=== PATIENT | female | born 1935 | race American Indian/Alaskan Native ===

== ENCOUNTER 2019-07-25 11:02 | Emergency (ER) | payer OTHER ==
[2019-07-25 11:48] VITALS: TEMP 98.5; BMI 27.3
[2019-07-25] MEDS ORDERED: ACETAMINOPHEN 325 MG TABLET (FP) PO ONE (12:26)
--- NOTE | 2019-07-25 12:28 | PDOC ---
Documentation entered by Mark Coello SCRIBE, acting as scribe for Raven Rosas MD. Raven Rosas MD: This documentation has been prepared by the Mode gonsalez Daniel, SCRIBE, under my direction and personally reviewed by me in its entirety. I confirm that the documentation accurately reflects all work, treatment, procedures, and medical decision making performed by me. History of Present Illness - General Chief Complaint: Injury Stated Complaint: FALL Time Seen by Provider: 07/25/19 11:15 History Source: Patient Exam Limitations: No Limitations - History of Present Illness Initial Comments: 07/25/19 11:41 The patient is an 84 year old female with a past medical history of HTN, HLD, RA , OA, and asthma, prior pneumonias, last in 2017, here today from [facility] for evaluation s/p mechanical fall. The patient reports that she fell backwards from standing while trying to get dressed and states that she lost her balance. She notes hitting her head and upper back after the fall and currently notes mid back pain and occiput. She states that her back pain is worse with deep breaths. Patient also notes greater than a month of dry cough. She states that she has chronic muscle weakness, arthralgia, myalgia, orthopnea, shortness of breath, and constipation and states that these are unchanged. she states she is on chronic abx, Azithromycin 250 mg daily per her previous doctor in [place] for the pneumonia Patient denies headache, lightheadedness. Denies fever, chills. Denies chest pain. Denies nausea, vomiting, diarrhea, abdominal pain. no bowel or bladder problems. no syncope. no weakness or paresthesias. no prodromal sx. Allergies: pollen extracts Surgical history: hysterectomy, cholecystectomy, right shoulder replacement 07/25/19 12:27 07/25/19 15:25 Past History - Past Medical History Allergies/Adverse Reactions: Allergies Allergy/AdvReac Type Severity Reaction Status Date / Time pollen extracts Allergy Unknown Verified 07/25/19 11:28 Home Medications: Ambulatory Orders Albuterol Sulfate Inhaler - [Ventolin Hfa Inhaler -] 1 - 2 inh PO QID PRN Atorvastatin Ca [Lipitor] 20 mg PO HS 07/25/19 Fluticasone Propion/Salmeterol [Wixela 250-50 Inhub] 1 each IH BID 07/25/19 Folic Acid 2 mg PO DAILY 07/25/19 Losartan Potassium 50 mg PO DAILY 07/25/19 Methotrexate Sodium [Methotrexate] 12.5 mg PO WEEKLY 07/25/19 Naproxen 500 mg PO PRN PRN 07/25/19 [place]-3 Fatty Acids [[place]-3] 1,000 mg PO DAILY 07/25/19 Review of Systems - Review of Systems Able to Perform ROS?: Yes Comments:: 07/25/19 11:41 Constitutional: no fevers or chills. No weakness HEENT: +back of head pain. no dizziness. No congestion. No visual/hearing disturbances. CVS: no cp or syncope. Resp: no sob. +chronic cough. Gastrointestinal: no abdominal pain, nausea, vomiting, diarrhea. Genitourinary: no urinary sx, hematuria. MUSCULOSKELETAL: +mid back pain. No neck. SKIN: no redness or skin changes, no discharge, no rash. No wounds. Hematologic: no easy bruising/bleeding. NEUROLOGIC: +headache, no dizziness, LOC or altered mental status. No weakness, numbness or tingling. Psych: no anxiety or depression Allergic/Immunologic: pollen allergies All other systems reviewed and negative, or as documented in HPI. 07/25/19 12:29 *Physical Exam - Vital Signs Last Vital Signs Temp Pulse Resp BP Pulse Ox 98.5 F 89 18 177/71 H 98 07/25/19 11:20 07/25/19 11:20 07/25/19 11:20 07/25/19 11:20 07/25/19 11:20 - Physical Exam Comments: 07/25/19 11:42 General: +anxious appearing. GCS 15 well appearing HEENT: NCAT, PERRL, EOMI. Airway intact. No battles sign or raccoon eyes. No e/ o ocular. Dentition intact. No e/o septal hematoma, nasal bridge stable. Neck: neck supple, no midline C spine tenderness or deformity, ROM intact. No anterior mass or crepitus, trachea midline. Resp: Lungs clear bilaterally Chest: no clavicle or chest wall tenderness or crepitus CVS: RRR, 2+ pulses throughout. Abdomen: +protubertant abdomen. Abdomen soft, nontender. Back: Back with mid thoracic TTP, no midline spinal tenderness along cervical/ lumbar spine, FROM, no stepoffs. MSK: 2+pitting edema of the lower extremities to the sock line. Pelvis stable, Extremities symmetric, no focal areas of tenderness or deformities, proximal and distally; no pain on axial loading. FROM in all extrem. Neuro: Alert, oriented appropriately. CN II-XII grossly symmetric and intact. no focal neuro deficits. Sensation and strength intact throughout. Gait normal/ stable. Skin: intact, normal color and well perfused. No seatbelt signs at neck, chest or abdomen. 07/25/19 12:29 ED Treatment Course - RADIOLOGY Radiology Studies Ordered: Category Date Time Status CERVICAL SPINE CT W/O CONTR [CT] Stat CT Scan 07/25/19 12:[address] WITHOUT CONTRAST [CT] Stat CT Scan 07/25/19 12:24 Ordered CHEST PA & LAT [RAD] Stat Radiology 07/25/19 12:26 Ordered SPINE-THORACIC [RAD] Stat Radiology 07/25/19 12:26 Ordered Medical Decision Making - Medical Decision Making 07/25/19 12:30 Vital Signs Temp Pulse Resp BP Pulse Ox 98.5 F 89 18 177/71 H 98 07/25/19 11:20 07/25/19 11:20 07/25/19 11:20 07/25/19 11:20 07/25/19 11:20 VS reviewed, wnl ddx: ICH, SDH/ EDH, C spine injury/strain, extremity sprain/fracture, pelvis fracture. MSK contusion, msk spasms. Rib fractures, PTX, pneumonia. Clinically doubt Intra abdominal and thoracic injuries/bleed Xray thoracic spine normal joint space alignment, no acute fx or dislocation. no compression fx. CXR clear, no e/o pna CT head neg for acute bleed/injuries. c spine degenerative changes, no fx/ subluxation given analgesia here. fall prevention safety and prevention reviewed. avoid triggers. Pt to be discharged in stable condition. Patient made aware of clinical impression, treatment recommendations and disposition plan, return precautions discussed (including but not limited to new or persistent/worsening symptoms, pain, fevers, or signs of infection, chest pain, respiratory distress, inability to tolerate oral intake, dehydration, syncope, or neurologic changes) . Follow up with PMD or [facility] physician as recommended, follow up information provided, take medications as instructed for duration of time. continue with supportive care, avoid triggers and precipitants. All questions answered to patient's satisfaction and expressed understanding and comfort with this. At the time of discharge, the patient is alert, clinically improved, tolerating po and verbalizes understanding of instructions, satisfied with the care received and felt comfortable with the plan. Patient does not suffer from an acute life- threatening medical condition at this time and is safe for outpatient follow- up. 07/25/19 12:32 07/25/19 15:22 07/25/19 15:25 Discharge - Discharge Information Problems reviewed: Yes Clinical Impression/Diagnosis: Fall Closed head injury Qualifiers: Encounter type: initial encounter Qualified Code(s): S09.90XA - Unspecified injury of head, initial encounter Back pain Qualifiers: Back pain location: thoracic back pain Chronicity: unspecified Back pain laterality: unspecified Qualified Code(s): M54.6 - Pain in thoracic spine Disposition: CUSTODIAL FACILITY - Admission No - Follow up/Referral Referrals: Jesusita Martinez [Non Staff, Medical] - Maryjane Quiñones MD [Staff Physician] - - Patient Discharge Instructions Patient Printed Discharge Instructions: How to Prevent Falls, DI for Closed Head Injury, DI for Thoracic Back Pain Additional Instructions: Follow up with your primary care doctor within 48-72 hours. Rest. Take Acetaminophen (Tylenol) every 4-6 hours, as needed, for pain. Often individuals develop a headache associated with nausea in the days/hours after a head injury. This is called a concussion and does not warrant a return to the ED UNLESS: you develop significant worsening of pain, profuse vomiting, dizziness, changes in vision, difficulty walking/speaking, weakness or numbness to your extremities. FALL PREVENTION AT HOME WHAT YOU NEED TO KNOW There are many different factors that can increase your risk of falls. Falls can happen any time, but the majority of them occur in the home. Fall prevention includes ways to make your home and other areas safer. It also includes ways you can move more carefully to prevent a fall. Health conditions that cause changes in your blood pressure, vision, or muscle strength and coordination may increase your risk for falls. Medicines, including anesthesia, may increase your risk for falls if they make you dizzy, weak, or sleepy. FALL PREVENTION TIPS Stand or sit up slowly. This may help you keep your balance and prevent falls. Do not walk and talk at the same time. Concentrate on the task of walking and continue the conversation after you've reached a safe place. Wear shoes that fit well and have soles that form building supervisor. Wear shoes both inside and outside. Use slippers with good form building supervisor. Avoid shoes with high heels. Use assistive devices as directed. Your healthcare provider may suggest that you use a cane or walker to help you keep you balance. Be sure you have adequate lighting throughout your house. Keep paths clear. Remove books, shoes and other objects from walkways and stairs. Keep cords for telephones and lamps out of the way so you dont need to walk over them. Remove small rugs or secure them with double-sided tape. This will prevent you from tripping. Use a nightlight when getting out of bed at night. Stay active to maintain overall strength and endurance. Know your limitations. If there is a task you can not complete with ease, do not risk a fall by trying to complete it. Call 911 or have someone else call if: You have fallen and are unconscious You have fallen and cannot move part of your body Contact your healthcare provider if: You have fallen and have pain or a headache You have questions or concerns about your condition or care. - Post Discharge Activity
[2019-07-25] MEDS ORDERED: ACETAMINOPHEN 325 MG TABLET (FP) ONE (12:40)
[2019-07-25 15:40] VITALS: BP 154/66; PULSE 79
[2019-07-25] MEDS ORDERED: IBUPROFEN 600 MG TABLET (FP) PO ONE ×2 (15:44→15:52)
== END 2019-07-25 18:11 ==
LOC: JER 11:02
DX: S09.8XXA Other specified injuries of head, initial encounter (principal); S29.8XXA Other specified injuries of thorax, initial encounter; M54.6 Pain in thoracic spine; W18.39XA Other fall on same level, initial encounter; Y93.89 Activity, other specified; Y92.122 Bedroom in nursing home as the place of occurrence of the external cause; Y99.8 Other external cause status; I10 Essential (primary) hypertension; E78.00 Pure hypercholesterolemia, unspecified; M19.90 Unspecified osteoarthritis, unspecified site; M06.9 Rheumatoid arthritis, unspecified; J45.909 Unspecified asthma, uncomplicated; Z87.01 Personal history of pneumonia (recurrent); Z79.2 Long term (current) use of antibiotics; Z96.611 Presence of right artificial shoulder joint; Z90.49 Acquired absence of other specified parts of digestive tract; Z90.710 Acquired absence of both cervix and uterus; Z91.048 Other nonmedicinal substance allergy status
CPT/HCPCS: 70450-TC; 71046-TC-FY; 72070-TC-FY; 72125-TC; 99281-25

== ENCOUNTER 2019-08-17 00:15 | Emergency (ER) | payer OTHER, MEDICARE ==
[2019-08-17 00:44] VITALS: BP 160/71; PULSE 87; TEMP 98.5; BMI 30.2
--- NOTE | 2019-08-17 02:33 | PDOC ---
History of Present Illness - General Chief Complaint: Injury Stated Complaint: FALL Time Seen by Provider: 08/17/19 02:33 History Source: Patient, Friend Exam Limitations: No Limitations - History of Present Illness Initial Comments: 84 year old female with PMH HTN, HLD, RA, OA, and asthma, prior pneumonias, last in 2017 presented to ED for right shoulder and right elbow pain s/p fall today. Pt reported at [facility] where she resides her health aid was helping her get to the bathroom, but "she did not do a good job because I fell forward onto my right arm". She denied head injury, LOC, vomiting, neck pain, back pain, abdominal pain, chest pain. She reported she always feels short of breath and today is not increased. ROS General: denied fever, chills, generalized weakness. HEENT: denied sore throat, rhinorrhea, ear pain. Cardiovascular: denied chest pain, palpitations, syncope, diaphoresis. Respiratory: denied shortness of breath, cough, sputum production, hemoptysis. Gastrointestinal: denied abdominal pain, nausea, vomiting, diarrhea, constipation, blood in stool. Genitourinary: denied dysuria, increased urinary frequency, hematuria, urinary incontinence, flank pain. Back: denied back pain. Musculoskeletal: admitted to elbow pain, shoulder pain. Neurological: denied headache, dizziness, numbness, tingling, weakness. Integumentary: denied rash, laceration, abrasion. Hematologic/Lymphatic: denied bruising or bleeding. PE Constitutional: Well-nourished, Well-developed, appearing stated age. Airway: intact Breathing: bilateral breath sounds Circulation: 2+ carotid pulse B/L HEENT: head is normocephalic, atraumatic. No facial bones tenderness to palpation. No cheng sign. No raccoon eyes. EOMI. PERRLA. Neck: supple. Full ROM. no midline c-spine tenderness to palpation. No step offs. Cardiovascular: regular heart rhythm. no murmurs. no pericardial friction rub. Chest wall: No tenderness to palpation of anterior chest wall. No deformity to anterior chest wall. Respiratory: coarse breath sounds at right base, otherwise clear to auscultation. left lung clear to auscultation. speaking in full sentences. no labored breathing. Gastrointestinal: soft, nontender. normal bowel sounds. no rebound, guarding, masses. No ecchymoses. Back: no midline T-spine or L-spine tenderness to palpation. No step offs. Right upper extremity: full ROM right elbow without pain. no tenderness to palpation of right elbow. no tenderness to right shoulder. Pelvis: lower extremities equal in length without external rotation. No hip tenderness to palpation. Extremities: peripheral pulses intact. no lower extremity edema. Neurological: CN 2-12 grossly intact. moves all four extremities. Psych: awake, alert, oriented x3. follows commands. answers questions appropriately. Past History - Past Medical History Allergies/Adverse Reactions: Allergies Allergy/AdvReac Type Severity Reaction Status Date / Time pollen extracts Allergy Unknown Verified 07/25/19 11:28 Home Medications: Ambulatory Orders Albuterol Sulfate Inhaler - [Ventolin Hfa Inhaler -] 1 - 2 inh PO QID PRN Atorvastatin Ca [Lipitor] 20 mg PO HS 07/25/19 Fluticasone Propion/Salmeterol [Wixela 250-50 Inhub] 1 each IH BID 07/25/19 Folic Acid 2 mg PO DAILY 07/25/19 Losartan Potassium 50 mg PO DAILY 07/25/19 Methotrexate Sodium [Methotrexate] 12.5 mg PO WEEKLY 07/25/19 Naproxen 500 mg PO PRN PRN 07/25/19 [place]-3 Fatty Acids [[place]-3] 1,000 mg PO DAILY 07/25/19 Azithromycin [Zithromax -] 250 mg PO DAILY 08/17/19 Budesonide [Pulmicort 0.25 mg -] 1 neb PO BID 08/17/19 Cyclosporine [Restasis] 1 each OP BID 08/17/19 Fluticasone Propion/Salmeterol [Wixela 250-50 Inhub] 1 each IH BID 08/17/19 Hydrochlorothiazide [Hctz -] 25 mg PO DAILY 08/17/19 Nitroglycerin [Nitrostat] 0.4 mg SL [id number] PRN 08/17/19 Ubidecarenone [Coenzyme Q10] 100 mg PO BID 08/17/19 *Physical Exam - Vital Signs Last Vital Signs Temp Pulse Resp BP Pulse Ox 98.5 F 87 20 160/71 98 08/17/19 00:35 08/17/19 00:35 08/17/19 00:35 08/17/19 00:35 08/17/19 00:35 Medical Decision Making - Medical Decision Making 84 year old female with above PMH presented to ED for right shoulder and right elbow pain s/p fall today. Initial Vital Signs Temp Pulse Resp BP Pulse Ox 98.5 F 87 20 160/71 98 08/17/19 00:35 08/17/19 00:35 08/17/19 00:35 08/17/19 00:35 08/17/19 00:35 Afebrile. No tachycardia. No tachypnea. Hypertensive. No hypoxia on room air. Labs ordered: none Imaging ordered: CXR, pelvis XR, right elbow XR, right humerus XR, right shoulder XR, right forearm XR Medications ordered: none -Pt declined pain medication 08/17/19 05:15 X[address] Espino view show no acute fracture/dislocation. -Pending official reports 08/17/19 05:52 CT head report: Referring Physician: JAMES LUNA Comments: Jay Segundo MD wrote on Aug 17, 2019 at 05:42 AM: Referring Physician: JAMES LUNA Patient Name: ABELARDO SHETH THIS IS A PRELIMINARY REPORT FROM [facility] DATE OF SERVICE: 2019-08-17 05:20:36 IMAGES: [id number] EXAM: CT HEAD WITHOUT CONTRAST HISTORY: 84-year-old female, fall from standing COMPARISON: No available comparison exams. TECHNIQUE: Axial non-contrast images of the head obtained from the skull base to the vertex. Radiation Dose Reduction: This CT exam was performed using one or more of the following dose reduction techniques: automated exposure control, adjustment of the mA and/or kV according to patient size, use of iterative reconstruction technique. Radiation Dose: Based on a 16 cm phantom, the estimated radiation dose CTDIvol mGy for each series in this exam is 23.9. The estimated cumulative dose (DLP mGy-cm) is 557.0. FINDINGS: Parenchyma: No acute intracranial hemorrhage or mass effect. No hypodensity. Extra-axial collection: No extra-axial fluid collection or hemorrhage. Ventricles and cisterns: Normal and symmetric in size and shape. No SAH. Paranasal sinuses: Visualized portions are unremarkable. Mastoid air cells: Unremarkable. Orbits: Visualized portions are unremarkable. Calvarium: No acute fracture. IMPRESSION: No evidence of acute intracranial abnormality. 08/17/19 06:00 CT cervical spine report: Referring Physician: JAMES LUNA Comments: Jay Segundo MD wrote on Aug 17, 2019 at 05:56 AM: Referring Physician: JAMES LUNA Patient Name: ABELARDO SHETH THIS IS A PRELIMINARY REPORT FROM [facility] DATE OF SERVICE: 2019-08-17 05:17:16 IMAGES: [id number] EXAM: CT Cervical Spine without IV contrast HISTORY: 84-year-old female, fall from standing COMPARISON: No comparison exam is available. TECHNIQUE: Axial images obtained through the cervical spine. Sagittal and coronal reformatting was performed. Radiation Dose Reduction: This CT exam was performed using one or more of the following dose reduction techniques: automated exposure control, adjustment of the mA and/or kV according to patient size, use of iterative reconstruction technique. series in this exam is 6.6. The estimated cumulative dose (DLP mGy-cm) is 197.2. FINDINGS: Cervical Spine: Skull base is intact. No vertebral body fracture seen. Multilevel uncovertebral joint and facet hypertrophy which likely causes severe osseous neural foraminal stenosis at multiple levels. Alignment: 2 mm anterolisthesis of C4 on C5 and C5 on C6. Prevertebral soft tissues: Normal contour and thickness. Lung apices: Visualized portions clear. Thyroid: Asymmetrically enlarged right thyroid lobe possibly representing a 3 cm thyroid nodule. Vasculature: Limited evaluation without IV contrast. Soft tissues: Unremarkable. Lymphadenopathy: None. IMPRESSION No acute fracture. Asymmetrically enlarged right thyroid lobe possibly representing a 3 cm thyroid nodule. Recommend further characterization with ultrasound. One or more of the following dose reduction techniques were used: automated exposure control, adjustment of the mA and/or kV according to patient size, use of iterative reconstructive technique. THIS DOCUMENT HAS BEEN ELECTRONICALLY SIGNED Jay Segundo MD 08/17/2019 05:55 EST MAmbrosioD. Please call [facility] [phone]) with questions. Jay Segundo MD Results discussed with patient, friend and son at bedside. Pt is a elderly woman coming from an assisted living facility for a mechanical fall. X-ray imaging of right upper extremity showed no acute fracture or dislocation by my and Dr. Love' read. Pending official radiology reports to be done in the AM. Pt and family informed they will be called if there is a change from our interpretation. Pt and family informed of incidental thyroid nodule, they reported they are aware. Pt and son reported they are comfortable with pt returning back to [facility] facility and prompt PCP F/U. 08/17/19 11:34 Follow up: Official CXR report: Name: ABELARDO SHETH DEPARTMENT OF RADIOLOGY Phys: Raven Rosas MD : 1935 Age: 84 Sex: F [facility] Acct: [id number] Loc: [facility] [address] [place] [address] Exam Date: 07/25/19 Status: [facility] [place] [address] Unit Number: [id number] EXAM#: TYPE/EXAM: RESULT: [id number] RAD/CHEST PA LAT Evaluate for pneumonia. Chest. 3 views. Comparison study July 19, 2019. Left pacemaker with 2 intact leads. No evidence of vascular congestive changes pulmonary edema. Unchanged contour of the cardiomediastinal silhouette. No evidence of bulky hilar adenopathy. No evidence of a pulmonary infiltrates, atelectasis. No pneumothorax , or large pleural effusion is seen. Demineralized osseous structures. Status post total right shoulder replacement. Impression. No evidence of pneumonia, atelectasis, CHF. No pneumothorax, or large pleural effusion is seen. Reported By: Brody Campuzano MD 07/26/19 0918 Official Pelvis XR report: Name: ABELARDO SHETH DEPARTMENT OF RADIOLOGY Phys: Azalia Zabala RESIDENT : 1935 Age: 84 Sex: F [facility] Acct: [id number] Loc: [facility] [address] [place] [address] Exam Date: 08/17/19 Status: [facility] [place] [id number] Unit Number: [id number] ACCESSION # : [id number] EXAM#: TYPE/EXAM: RESULT: [id number] RAD/PELVIS Pelvis: Fall. Pain. A single view of the pelvis reveals excessive soft tissues, abdominal distention but no sign of a gross fracture or subluxation. Blastic or lytic changes are not seen. If symptoms persist, further imaging and orthopedic consultation may be of help. Reported By: Cristobal Alford MD 08/17/19 0751 Official R shoulder XR: Name: ABELARDO SHETH DEPARTMENT OF RADIOLOGY Phys: Azalia Zabala RESIDENT : 1935 Age: 84 Sex: F [facility] Acct: [id number] Loc: [facility] [address] [place] [address] Exam Date: 08/17/19 Status: [place] [id number] Unit Number: [id number] ACCESSION # : [id number] EXAM#: TYPE/EXAM: RESULT: [id number] RAD/SHOULDER-RIGHT Right shoulder: Pain. 2 views of the right shoulder reveal a right shoulder replacement and pacemaker wires. An acute process is not seen. There is no sign of loosening. There is no sign of a fracture. Correlation recommended. Reported By: Cristobal Alford MD 08/17/19 0747 Official R Humerus XR report: Name: ABELARDO SHETH DEPARTMENT OF RADIOLOGY Phys : Azalia Zabala RESIDENT : 1935 Age: 84 Sex: F [facility] Acct: [id number] Loc: [facility] [address] [place] [address] Exam Date: 08/17/19 Status: [place] [place] [address] Unit Number: [id number] ACCESSION # : [id number] EXAM#: TYPE/EXAM: RESULT: [id number] RAD/HUMERUS-RIGHT Right humerus: Fall. Pain. 2 views of the right humerus reveal a right shoulder replacement. There is no sign of an acute fracture and there is no sign of loosening or subluxation. If symptoms persist, further imaging and orthopedic consultation may be of help. Reported By: Cristobal Alford MD 08/17/19 0752 Official R elbow XR report: Name: ABELARDO SHETH DEPARTMENT OF RADIOLOGY Phys: Azalia Zabala RESIDENT : 1935 Age: 84 Sex: F [facility] Acct: [id number] Loc: [address] Exam Date: 08/17/19 Status: [place] [address] Unit Number: [id number] ACCESSION # : [id number] EXAM#: TYPE/EXAM: RESULT: [id number] RAD/ELBOW-RIGHT Right elbow: Pain. Fall. 3 views of the right elbow reveals no sign of a gross fracture or subluxation and no sign of blastic or lytic changes. There is loss of bone density with arthritic changes. Swelling, foreign body or soft tissue air is not seen. If symptoms persist, further imaging may be of help. Reported By: Cristobal Alford MD 08/17/19 0745 Official R forearm XR report: Name: ABELARDO SHETH DEPARTMENT OF RADIOLOGY Phys : Azalia Zabala RESIDENT : 1935 Age: 84 Sex: F [facility] Acct: [id number] Loc: [facility] [address] [facility] Exam Date: 08/17/19 Status: [facility] [place] [id number] Unit Number: [id number] ACCESSION # : [id number] EXAM#: TYPE/EXAM: RESULT: [id number] RAD/FOREARM- RIGHT Right forearm: Fall. Pain. 2 views of the right forearm have been submitted. There is no sign of an acute fracture or subluxation and no sign of blastic or lytic changes. There are some arthritic changes noted. Swelling, foreign body or soft tissue air is not seen. If symptoms persist, further imaging may be of help. Impression: No acute right forearm pathology. Reported By: Cristobal Alford MD 0755 Discharge - Discharge Information Problems reviewed: Yes Clinical Impression/Diagnosis: Shoulder pain, Elbow pain, Fall, Thyroid nodule Condition: Stable Disposition: LONGTERM FACILITY - Admission No - Follow up/Referral Referrals: Jesusita Martinez [Primary Care Provider] - - Patient Discharge Instructions Patient Printed Discharge Instructions: How to Prevent Falls, DI for Thyroid Nodule Additional Instructions: Follow up with your primary care doctor within 3 days regarding your Emergency Room visit. Your care is not complete until you follow up. Take Tylenol over the counter for pain, take as advised on label. Return to the Emergency Department for increasing pain, chest pain, shortness of breath, vomiting, dizziness, lightheadedness, passing out, or any other new, worsening or concerning symptoms. Your Cat-Scan of your head was normal. Your Cat-Scan of your neck showed no fracture, but an asymmetrically enlarged right thyroid lobe possibly representing a 3 cm thyroid nodule was noted. Please let your primary care doctor know about this, and set up for an ultrasound to be performed out patient. Your X-rays showed no acute fractures by the Emergency Room doctors read. A radiologist will be reading the X-rays in the morning and you will be called if there is anything found on the X-rays that was not seen overnight. CT reports: CT head report: Referring Physician: JAMES LUNA Comments: Jay Segundo MD wrote on Aug 17, 2019 at 05:42 AM: Referring Physician: JAMES LUNA Patient Name: ABELARDO SHETH THIS IS A PRELIMINARY REPORT FROM [facility] DATE OF SERVICE: 2019-08-17 05:20:36 IMAGES: 259 EXAM: CT HEAD WITHOUT CONTRAST HISTORY: 84-year-old female, fall from standing COMPARISON: No available comparison exams. TECHNIQUE: Axial non-contrast images of the head obtained from the skull base to the vertex. Radiation Dose Reduction: This CT exam was performed using one or more of the following dose reduction techniques: automated exposure control, adjustment of the mA and/or kV according to patient size, use of iterative reconstruction technique. Radiation Dose: Based on a 16 cm phantom, the estimated radiation dose CTDIvol mGy for each series in this exam is 23.9. The estimated cumulative dose (DLP mGy-cm) is 557.0. FINDINGS: Parenchyma: No acute intracranial hemorrhage or mass effect. No hypodensity. Extra-axial collection: No extra-axial fluid collection or hemorrhage. Ventricles and cisterns: Normal and symmetric in size and shape. No SAH. Paranasal sinuses: Visualized portions are unremarkable. Mastoid air cells: Unremarkable. Orbits: Visualized portions are unremarkable. Calvarium: No acute fracture. IMPRESSION: No evidence of acute intracranial abnormality. CT cervical spine report: Referring Physician: JAMES LUNA Comments: Jay Segundo MD wrote on Aug 17, 2019 at 05:56 AM: Referring Physician: JAMES LUNA Patient Name: ABELARDO SHETH THIS IS A PRELIMINARY REPORT FROM [facility] DATE OF SERVICE: 2019-08-17 05:17:16 IMAGES: 454 EXAM: CT Cervical Spine without IV contrast HISTORY: 84-year-old female, fall from standing COMPARISON: No comparison exam is available. TECHNIQUE: Axial images obtained through the cervical spine. Sagittal and coronal reformatting was performed. Radiation Dose Reduction: This CT exam was performed using one or more of the following dose reduction techniques: automated exposure control, adjustment of the mA and/or kV according to patient size, use of iterative reconstruction technique. series in this exam is 6.6. The estimated cumulative dose (DLP mGy-cm) is 197.2. FINDINGS: Cervical Spine: Skull base is intact. No vertebral body fracture seen. Multilevel uncovertebral joint and facet hypertrophy which likely causes severe osseous neural foraminal stenosis at multiple levels. Alignment: 2 mm anterolisthesis of C4 on C5 and C5 on C6. Prevertebral soft tissues: Normal contour and thickness. Lung apices: Visualized portions clear. Thyroid: Asymmetrically enlarged right thyroid lobe possibly representing a 3 cm thyroid nodule. Vasculature: Limited evaluation without IV contrast. Soft tissues: Unremarkable. Lymphadenopathy: None. IMPRESSION No acute fracture. Asymmetrically enlarged right thyroid lobe possibly representing a 3 cm thyroid nodule. Recommend further characterization with ultrasound. One or more of the following dose reduction techniques were used: automated exposure control, adjustment of the mA and/or kV according to patient size, use of iterative reconstructive technique. THIS DOCUMENT HAS BEEN ELECTRONICALLY SIGNED Jay Segundo MD 08/17/2019 05:55 GET Mitchell. Please call [facility] [phone]) with questions. Jay Segundo MD - Post Discharge Activity
--- NOTE | 2019-08-17 02:37 | PDOC ---
Attending Attestation - Resident Resident Name: Azalia Zabala - ED Attending Attestation I have performed the following: I have examined & evaluated the patient, The case was reviewed & discussed with the resident, I agree w/resident's findings & plan - HPI HPI: 08/17/19 04:59 see resident hpi - Physicial Exam PE: 08/17/19 04:59 agree with resident exam - Medical Decision Making 08/17/19 04:59 84-year-old female status post mechanical fall with right upper extremity pain Plan for CT scan of the head and cervical spine as well as x-rays of the right humerus shoulder and elbow Plan for DC pending imaging results
== END 2019-08-17 09:02 ==
LOC: JER 00:15
DX: M25.511 Pain in right shoulder (principal); M25.2 Flail joint; E04.1 Nontoxic single thyroid nodule; Z96.611 Presence of right artificial shoulder joint; W18.39XA Other fall on same level, initial encounter; Y93.01 Activity, walking, marching and hiking; Y92.092 Bedroom in other non-institutional residence as the place of occurrence of the external cause; Y99.8 Other external cause status; I10 Essential (primary) hypertension; E78.5 Hyperlipidemia, unspecified; M19.90 Unspecified osteoarthritis, unspecified site; M06.9 Rheumatoid arthritis, unspecified; J45.909 Unspecified asthma, uncomplicated; Z87.01 Personal history of pneumonia (recurrent); Z91.048 Other nonmedicinal substance allergy status
CPT/HCPCS: 70450-TC; 71045-TC-FY; 72125-TC; 72170-TC-FY; 73030-TC-RT-FY; 73060-TC-RT-FY; 73070-TC-RT-FY; 73090-TC-RT-FY; 99284-25

== ENCOUNTER 2019-09-06 01:20 | Emergency (ER) | payer OTHER, MEDICARE ==
[2019-09-06] MEDS ORDERED: ALBUTEROL SO4 0.083% IH SOL 2.5 MG/3 ML VIAL.NEB. NEB ONE ×2 (01:40→02:21)
[2019-09-06] MEDS ORDERED: ALBUTEROL SO4 2.5/IPRATROPIUM 0.5 INH SOL 3 ML VIAL.NEB. NEB ONE (02:02)
[2019-09-06] MEDS ORDERED: methylPREDNISolone NA SUCC 125 MG/2 ML VIAL IVPB ONE (02:02)
[2019-09-06 02:14] VITALS: TEMP 98.2; BMI 27.3
--- NOTE | 2019-09-06 02:14 | PDOC ---
History of Present Illness - General Chief Complaint: Respiratory Stated Complaint: DIFF BREATHING Time Seen by Provider: 09/06/19 01:51 History Source: Patient Exam Limitations: No Limitations - History of Present Illness Initial Comments: 84 year old female with PMH HTN, HLD, RA, pacemaker, OA, and asthma, prior pneumonias, last in 2017 presents to the emergency department 09/06/19 03:45 Past History - Past Medical History Allergies/Adverse Reactions: Allergies Allergy/AdvReac Type Severity Reaction Status Date / Time pollen extracts Allergy Unknown Verified 09/06/19 02:13 Home Medications: Ambulatory Orders Albuterol Sulfate Inhaler - [Ventolin Hfa Inhaler -] 1 - 2 inh PO QID PRN Atorvastatin Ca [Lipitor] 20 mg PO HS 07/25/19 Fluticasone Propion/Salmeterol [[place]ixela 250-50 Inhub] 1 each IH BID 07/25/19 Folic Acid 2 mg PO DAILY 07/25/19 Losartan Potassium 50 mg PO DAILY 07/25/19 Methotrexate Sodium [Methotrexate] 12.5 mg PO WEEKLY 07/25/19 Naproxen 500 mg PO PRN PRN 07/25/19 [place]-3 Fatty Acids [[place]-3] 1,000 mg PO DAILY 07/25/19 Budesonide [Pulmicort 0.25 mg -] 1 neb PO BID 08/17/19 Cyclosporine [Restasis] 1 each OP BID 08/17/19 Hydrochlorothiazide [Hctz -] 25 mg PO DAILY 08/17/19 Nitroglycerin [Nitrostat] 0.4 mg SL [id number] PRN 08/17/19 Ubidecarenone [Coenzyme Q10] 100 mg PO ASDIR 08/17/19 Acetaminophen 500 mg PO TID PRN 09/06/19 Albuterol 0.083% Nebulizer Deborah [Ventolin 0.083%] 1 neb NEB BID 09/06/19 Cholecalciferol (Vitamin D3) [Vitamin D3] 2,000 unit PO DAILY 09/06/19 Methylprednisolone [Medrol Dose Todd] 4 mg PO ASDIR #21 tablet 09/06/19 Polyethylene Glycol 3350 17 gm PO DAILY PRN 09/06/19 Asthma: Yes COPD: No HTN: Yes Hypercholesterolemia: Yes - Immunization History Td Vaccination: Yes TDAP Vaccination: Yes Immunization Up to Date: Yes - Psycho Social/Smoking Cessation Hx Smoking History: Never smoked Have you smoked in the past 12 months: No Information on smoking cessation initiated: No Hx Alcohol Use: No Drug/Substance Use Hx: No *Physical Exam - Vital Signs Last Vital Signs Temp Pulse Resp BP Pulse Ox 98.2 F 82 17 139/87 98 09/06/19 01:20 09/06/19 01:20 09/06/19 01:20 09/06/19 01:20 09/06/19 01:20 ED Treatment Course - LABORATORY CBC & Chemistry Diagram: 09/06/19 02:45 09/06/19 02:45 - RADIOLOGY Radiology Studies Ordered: Category Date Time Status CHEST X-RAY PORTABLE* [RAD] Stat Radiology 09/06/19 02:02 Ordered Discharge - Discharge Information Problems reviewed: Yes Clinical Impression/Diagnosis: Asthma Condition: Improved Disposition: [facility] - Admission No - Additional Discharge Information Prescriptions: Methylprednisolone [Medrol Dose Todd] 4 mg PO ASDIR #21 tablet - Follow up/Referral Referrals: Jesusita Martinez [Primary Care Provider] - Kanu Angel MD [Staff Physician] - Red Tanner MD [Staff Physician] - Reji Vitale MD, MD [Staff Physician] - Fidel Cardenas MD [Staff Physician] - - Patient Discharge Instructions Patient Printed Discharge Instructions: DI for Asthma -- Adult - Post Discharge Activity
[2019-09-06] MEDS ORDERED: methylPREDNISolone NA SUCC 125 MG/2 ML VIAL ONE (02:21)
[2019-09-06 02:56] LABS: BASO % 0.7 % (0-2.0); EOS % 0.1 % (0-4.5); HEMOGLOBIN 12.6 GM/dL (10.7-15.3); LYMPH % 11.3 % (8-40); MCH 26.8 pg (25.7-33.7); MCHC 33.2 g/dl (32.0-36.0); MEAN CELL VOLUME 80.9 fl (80-96); MONO % 13.1 % (3.8-10.2); NEUT % 74.8 % (42.8-82.8); PLATELET COUNT 254 K/MM3 (134-434); RDW 14.8 % (11.6-15.6); WHITE BLOOD COUNT 8.4 K/mm3 (4.0-10.0)
[2019-09-06 03:25] LABS: ALBUMIN 3.4 g/dl (3.4-5.0); BILIRUBIN,TOTAL 0.3 mg/dL (0.2-1); BLOOD UREA NITROGEN 16.1 mg/dL (7-18); CALCIUM 9.3 mg/dL (8.5-10.1); CREATININE 0.5 mg/dL (0.55-1.3); POTASSIUM 4.3 mmol/L (3.5-5.1); TOT PROT 6.6 g/dl (6.4-8.2)
--- NOTE | 2019-09-06 03:43 | PDOC ---
Attending Attestation - Resident Resident Name: TomMikel - ED Attending Attestation I have performed the following: I have examined & evaluated the patient, The case was reviewed & discussed with the resident, I agree w/resident's findings & plan, Exceptions are as noted - HPI HPI: 09/06/19 03:40 84 years old from assisted living facility presents to the emergency department with past medical history significant for hypertension hyperlipidemia rheumatoid arthritis osteoarthritis asthma pneumonias in the past patient has had a cough for greater than 2 months presents to the emergency department tonight with cough and some shortness of breath cough has been chronic persistent constant no exacerbating relieving factors tonight felt more short of breath and asked to come to the emergency department Upon arrival to the ED patient with normal O2 sat no respiratory distress - Physicial Exam PE: 09/06/19 03:41 Vitals: Triage Vital signs reviewed General Appearance: No acute distress, well nourished well developed, Head: Atraumatic, Cardiac: Regular rate and rhythym, no murmurs, no rubs, no gallops, Lungs: Coarse breath sounds at the right base Abdomen: Soft, non distended, normal bowel sounds, non tender to palpation Extremities: Full range of motion to all extremities, no cyanosis, clubbing, or edema Skin: Warm and dry, no rashes or lesions, no rash, no petechiae Psych: Normal mood, normal affect - Medical Decision Making 09/06/19 03:41 84 years old with chronic cough mild shortness of breath this evening we will check labs EKG Observe and reassess EKG demonstrates atrial sensed ventricular paced rhythm troponin chest x-ray DuoNeb steroids with occasional ventricular complexes Status post duo nebs and steroids patient feels much better chest x-ray demonstrates no acute pathology she has no fever no white count her influenza is negative Reevaluation 345 patient with chronic cough improved with steroids nebs will discharge home with Medrol Dosepak nebs as well as incentive spirometer and pulmonary follow-up. Influenza negative chest x-ray clear (interpreted by me) no fever no white count no infectious etiology identified as cause of patient's cough patient would benefit from pulmonary toilet. Patient's bedside aide educated Findings, the need for follow-up and strict return instructions discussed with patient.
[2019-09-06 07:01] VITALS: BP 144/64; PULSE 89
--- NOTE | 2019-09-06 15:34 | EKG ---
Test Reason : Blood Pressure : / mmHG Vent. Rate : 110 BPM Atrial Rate : 102 BPM P-R Int : 174 ms QRS Dur : 108 ms QT Int : 362 ms P-R-T Axes : 059 -27 097 degrees QTc Int : 489 ms Atrial-sensed ventricular-paced rhythm WITH OCCASIONAL supraventricular complexes ABNORMAL ECG NO PREVIOUS ECGS AVAILABLE Confirmed by JOSE MARQUEZ MD ([id number]) on 09/06/2019 3:33:45 PM Referred By: Confirmed By:JOSE MARQUEZ MD
== END 2019-09-06 06:58 ==
LOC: JER 01:20
PROC: 3E0F7GC Introduction of Other Therapeutic Substance into Respiratory Tract, Via Natural or Artificial Opening (ICD-10-PCS; principal; 2019-09-06)
PROC: 3E0333Z Introduction of Anti-inflammatory into Peripheral Vein, Percutaneous Approach (ICD-10-PCS; 2019-09-06)
DX: J45.909 Unspecified asthma, uncomplicated (principal); I10 Essential (primary) hypertension; E78.5 Hyperlipidemia, unspecified; M06.9 Rheumatoid arthritis, unspecified; M19.90 Unspecified osteoarthritis, unspecified site; Z87.01 Personal history of pneumonia (recurrent); Z95.0 Presence of cardiac pacemaker
CPT/HCPCS: 36415; 71045-TC-FY; 80053; 82550; 84484; 85025; 93005; 93010; 94640; 96374; 99283-25

== ENCOUNTER 2019-09-14 01:54 | Emergency (ER) | payer OTHER, MEDICARE ==
[2019-09-14 02:19] VITALS: BMI 28.5
--- NOTE | 2019-09-14 02:41 | PDOC ---
Attending Attestation - Resident Resident Name: Jackson Reyna - ED Attending Attestation I have performed the following: I have examined & evaluated the patient, The case was reviewed & discussed with the resident, I agree w/resident's findings & plan - HPI HPI: 09/14/19 04:38 see resident hpi - Physicial Exam PE: 09/14/19 04:38 agree with resident exam - Medical Decision Making 09/14/19 84-year-old female status post mechanical fall with no visible injury Due to patient's reported head trauma plan for CT scan of the head and cervical spine for precautionary reasons due to age Patient's aide is at the bedside and did witness the event stating there was no blunt trauma involved She is currently in a facility receiving rehab as well Plan for DC back to facility pending CT scan results
--- NOTE | 2019-09-14 02:49 | PDOC ---
History of Present Illness - General Chief Complaint: Injury Stated Complaint: FALL Time Seen by Provider: 09/14/19 02:28 History Source: Patient, Other (nursing coordinator) Exam Limitations: No Limitations - History of Present Illness Initial Comments: 09/14/19 02:52 84yF w PMHx rheumatoid arthritis, osteoarthritis, asthma, HTN, HLD, frequent falls presenting from [facility] w head and back pain s/p witnessed fall. 12pm opening bathroom door, legs felt weak, fell backwards on nursing coordinator, hit head on floor. Complaining of posterior head, neck, back pain. Not on blood thinners. Denies LOC, vision change, nausea/vomiting, chest pain, SOB. Has BLE weakness necessitating use of cane for last 2 months, has been working w PT. Past History - Past Medical History Allergies/Adverse Reactions: Allergies Allergy/AdvReac Type Severity Reaction Status Date / Time pollen extracts Allergy Unknown Verified 09/14/19 02:13 Home Medications: Ambulatory Orders Albuterol Sulfate Inhaler - [Ventolin Hfa Inhaler -] 1 - 2 inh PO QID PRN Atorvastatin Ca [Lipitor] 20 mg PO HS 07/25/19 Folic Acid 2 mg PO DAILY 07/25/19 Losartan Potassium 50 mg PO DAILY 07/25/19 Naproxen 500 mg PO PRN PRN 07/25/19 Downing-3 Fatty Acids [Downing-3] 1,000 mg PO DAILY 07/25/19 Budesonide [Pulmicort 0.25 mg -] 1 neb PO BID 08/17/19 Nitroglycerin [Nitrostat] 0.4 mg SL [id number] PRN 08/17/19 Ubidecarenone [Coenzyme Q10] 100 mg PO ASDIR 08/17/19 Acetaminophen 500 mg PO TID PRN 09/06/19 Albuterol 0.083% Nebulizer Deborah [Ventolin 0.083%] 1 neb NEB BID 09/06/19 Cholecalciferol (Vitamin D3) [Vitamin D3] 2,000 unit PO DAILY 09/06/19 Polyethylene Glycol 3350 17 gm PO DAILY PRN 09/06/19 Azithromycin [Zithromax -] 250 mg PO DAILY 09/14/19 Tobramycin/Dexamethasone [Tobradex Eye Drops] 1 drop OU TID 09/14/19 Asthma: Yes COPD: No HTN: Yes Hypercholesterolemia: Yes - Immunization History Td Vaccination: Yes TDAP Vaccination: Yes Immunization Up to Date: Yes - Psycho Social/Smoking Cessation Hx Smoking History: Never smoked Have you smoked in the past 12 months: No Hx Alcohol Use: No Drug/Substance Use Hx: No Review of Systems - Review of Systems Constitutional: No: Chills, Fever HEENTM: No: Eye Pain, Recent change in vision, Nose Pain, Throat Pain, Mouth Pain Respiratory: No: Cough, Shortness of Breath Cardiac (ROS): No: Chest Pain, Palpitations, Syncope ABD/GI: Yes: Abdominal Distended (mild). No: Constipated, Diarrhea, Nausea, Vomiting : No: Burning, Dysuria, Frequency Musculoskeletal: Yes: Back Pain, Neck Pain. No: Joint Stiffness Integumentary: No: Bruising, Erythema Neurological: Yes: Headache. No: Seizure, Tingling Psychiatric: No: Anxiety, Depression Endocrine: No: Excessive Sweating, Flushing, Intolerance to Cold, Intolerance to Heat Hematologic/Lymphatic: No: Anemia, Blood Clots *Physical Exam - Vital Signs Last Vital Signs Temp Pulse Resp BP Pulse Ox 97.6 F 97 H 16 136/65 98 09/14/19 02:00 09/14/19 02:00 09/14/19 02:00 09/14/19 02:00 09/14/19 02:00 - Physical Exam General Appearance: Yes: Nourished, Appropriately Dressed, Mild Distress HEENT: positive: EOMI, WHITNEY, Normal Voice, Hearing Grossly Normal. negative: Scleral Icterus (R), Scleral Icterus (L), Nasal Congestion, Rhinorrhea Neck: positive: Tender (mild), Supple. negative: Rigid, Decreased range of motion (full ROM), Rigidity Respiratory/Chest: positive: Wheezing (intermittent ). negative: Chest Tender, Respiratory Distress, Accessory Muscle Use, Labored Respiration, Crackles, Rales , Rhonchi, Stridor Cardiovascular: positive: Regular Rhythm, Regular Rate, S1, S2. negative: Murmur Gastrointestinal/Abdominal: positive: Normal Bowel Sounds, Flat (mild distension ), Soft. negative: Tender, Distended, Guarding, Mass Musculoskeletal: positive: Other (no midline vertebral deformity/step-off). negative: Vertebral Tenderness Extremity: positive: Swelling (BLE +1 pitting edema to knees) Integumentary: positive: Normal Color, Other (no abrasion/laceration). negative : Rash, Ecchymosis Neurologic: positive: scratch polisher II-XII NML intact, Fully Oriented, Alert, Normal Mood/ Affect, Normal Response, Responsive. negative: Motor Strength 5/5 (reduced BLE strength), Numbness, Sensory Deficit, Confused, Disoriented Medical Decision Making - Medical Decision Making 09/14/19 02:55 Head, c-spine CT tylenol --- 84yF w PMHx rheumatoid arthritis, osteoarthritis, asthma, HTN, HLD, frequent falls presenting from [facility] w head and back pain s/p witnessed mechanical fall. Neuro intact. Head, c-spine CT did not show acute fracture/bleed/dislocation. Given tylenol for pain. DC home. Discharge - Discharge Information Problems reviewed: Yes Clinical Impression/Diagnosis: Head injury due to trauma Qualifiers: Encounter type: initial encounter Qualified Code(s): S09.90XA - Unspecified injury of head, initial encounter Condition: Good Disposition: HOME - Admission No - Follow up/Referral Referrals: Jesusita Martinez [Primary Care Provider] - - Patient Discharge Instructions Patient Printed Discharge Instructions: How to Prevent Falls Additional Instructions: Darrell was seen for head and back pain after a fall. Her imaging did not show anything concerning. She was given medication for pain. She can take tylenol or ibuprofen if she continues to have pain. Come back to the ED if she loses consciousness, vision change, vomits, or has worsening pain. - Post Discharge Activity
[2019-09-14] MEDS ORDERED: ACETAMINOPHEN 500 MG TABLET (FP) PO ONE (02:52)
[2019-09-14] MEDS ORDERED: ACETAMINOPHEN 325 MG TABLET (FP) ONE (03:06)
[2019-09-14 05:42] VITALS: BP 129/72; PULSE 77; TEMP 98.2
== END 2019-09-14 06:21 | disposition home or self-care (01) ==
LOC: JER 01:54
DX: S09.90XA Unspecified injury of head, initial encounter (principal); W18.39XA Other fall on same level, initial encounter; Y93.89 Activity, other specified; Y92.099 Unspecified place in other non-institutional residence as the place of occurrence of the external cause; J45.909 Unspecified asthma, uncomplicated; I10 Essential (primary) hypertension; E78.00 Pure hypercholesterolemia, unspecified; J30.1 Allergic rhinitis due to pollen
CPT/HCPCS: 70450-TC; 72125-TC; 99283-25

== ENCOUNTER 2019-09-27 02:27 | Emergency (ER) | payer OTHER, MEDICARE ==
[2019-09-27 04:39] VITALS: BP 170/74; PULSE 83; TEMP 98; BMI 28.3
--- NOTE | 2019-09-27 04:53 | PDOC ---
History of Present Illness - General Chief Complaint: Shortness of Breath Stated Complaint: SOB Time Seen by Provider: 09/27/19 04:52 - History of Present Illness Initial Comments: 09/27/19 05:17 The patient is an 84 year old female with a history of HTN, HLD, Asthma who presents for evaluation of shortness of breath. The patient reports that she awoke this morning at 2am with severe difficulty breathing that has been persistent prompting her presentation to the ED for further evaluation. She reports that her symptoms have improved since presenting to the ED, but continues to experience SOB. She otherwise denies fevers, cills, SOB, chest pain, nausea, vomiting, abdominal pain, or changes with urination or bowel movements. Past History - Past Medical History Allergies/Adverse Reactions: Allergies Allergy/AdvReac Type Severity Reaction Status Date / Time pollen extracts Allergy Unknown Verified 09/27/19 04:41 leflunomide [From Arava] Allergy Verified 09/27/19 06:28 Home Medications: Ambulatory Orders Atorvastatin Ca [Lipitor] 20 mg PO HS 07/25/19 Folic Acid 2 mg PO DAILY 07/25/19 Losartan Potassium 50 mg PO DAILY 07/25/19 Naproxen 500 mg PO PRN PRN 07/25/19 [place]-3 Fatty Acids [[place]-3] 1,000 mg PO DAILY 07/25/19 Budesonide [Pulmicort 0.25 mg -] 0.5 neb PO BID 08/17/19 Nitroglycerin [Nitrostat] 0.4 mg SL [id number] PRN 08/17/19 Ubidecarenone [Coenzyme Q10] 100 mg PO ASDIR 08/17/19 Acetaminophen 500 mg PO TID PRN 09/06/19 Albuterol 0.083% Nebulizer Deborah [Ventolin 0.083%] 1 neb NEB BID 09/06/19 Cholecalciferol (Vitamin D3) [Vitamin D3] 2,000 unit PO DAILY 09/06/19 Polyethylene Glycol 3350 17 gm PO DAILY PRN 09/06/19 Asthma: Yes COPD: No HTN: Yes Hypercholesterolemia: Yes - Immunization History Td Vaccination: Yes TDAP Vaccination: Yes Immunization Up to Date: Yes - Psycho Social/Smoking Cessation Hx Smoking History: Never smoked Have you smoked in the past 12 months: No Hx Alcohol Use: No Drug/Substance Use Hx: No Review of Systems - Review of Systems Comments:: 09/27/19 05:23 Constitutional: No fevers, chills, fatigue, malaise HEENT: No Rhinorrhea, nasal congestion, visual changes Cardiovascular: No chest pain, syncope, palpitations, lightheadedness Respiratory: SOB. No Cough, Hemoptysis, Gastrointestinal: No Abdominal pain, Nausea, Vomiting, Constipation, Diarrhea, Melena Genitourinary: No Dysuria, Frequency, Urgency, Hesitancy, Hematuria, Flank pain Musculoskeletal: No Myalgia, arthralgia Skin: No rashes, itching, bruising, pallor Neurologic: No Headache, Dizziness, Numbness, Weakness, or Tingling Psychiatric: No Hallucinations. No SI or HI *Physical Exam - Vital Signs Last Vital Signs Temp Pulse Resp BP Pulse Ox 98 F 83 20 170/74 95 09/27/19 04:35 09/27/19 04:35 09/27/19 04:35 09/27/19 04:35 09/27/19 04:35 - Physical Exam 09/27/19 05:24 General Appearance: Nourished. No Apparent Distress HEENT: EOMI, WHITNEY. No Pharyngeal Erythema, Tonsillar Exudate, Tonsillar Erythema Neck: No Cervical Lymphadenopathy Respiratory/Chest: End expiratory wheezing noted on exam with coarse breath sounds bilaterally and bibasilar rales. No Crackles, Rhonchi, Cardiovascular: Regular Rhythm, Regular Rate. No JVD, Murmur, Gallops, Rubs Gastrointestinal/Abdominal: Normal Bowel Sounds, Soft. No Guarding, Rebound, Tenderness Pelvic Exam: Normal External exam, Closed Cervical Os. No CMT or Adenexal tenderness. Musculoskeletal: No CVA Tenderness Extremity: Normal Capillary Refill Integumentary: Normal Color, Dry, Warm Neurologic: Fully Oriented, Alert, Normal Mood/Affect, Normal Response, Heart Score/ECG Review #1 ECG reviewed & interpreted by me at: 06:13 09/27/19 06:13 HR 77 DE 182 QRS 134 QTc 441 Sinus Rhythm with frequent PVCs Right Bundle Branch Block Nor Acute ST Changes ED Treatment Course - LABORATORY CBC & Chemistry Diagram: 09/27/19 05:15 09/27/19 05:15 Medical Decision Making - Medical Decision Making 09/27/19 05:25 The patient is an 84 year old female with a history of HTN, HLD, Asthma who presents for evaluation of shortness of breath. Given the patient's history and physical exam, we will obtain a cbc, cmp, troponin, bnp, ekg, chest plain film to evaluate further. We will treat with duoneb, solumedrol and continue to monitor and reassess while here in the ED. 09/27/19 07:06 CBc, cmp, troponin, bnp were unremarkable. Patient singed out to the day team pending chest plain film and reassessment. Discharge - Discharge Information Problems reviewed: Yes Clinical Impression/Diagnosis: Shortness of breath Condition: Fair - Follow up/Referral - Patient Discharge Instructions - Post Discharge Activity
[2019-09-27] MEDS ORDERED: ALBUTEROL SO4 2.5/IPRATROPIUM 0.5 INH SOL 3 ML VIAL.NEB. NEB ONE (05:14)
[2019-09-27] MEDS ORDERED: methylPREDNISolone NA SUCC 125 MG/2 ML VIAL IVPUSH ONE (05:26)
[2019-09-27] MEDS ORDERED: methylPREDNISolone NA SUCC 125 MG/2 ML VIAL ONE (06:11)
[2019-09-27 06:14] LABS: BASO % 0.7 % (0-2.0); EOS % 2.9 % (0-4.5); HEMOGLOBIN 11.5 GM/dL (10.7-15.3); LYMPH % 11.9 % (8-40); MEAN CELL VOLUME 78.9 fl (80-96); MONO % 9.3 % (3.8-10.2); NEUT % 75.2 % (42.8-82.8); PLATELET COUNT 238 K/MM3 (134-434); RBC 4.44 M/mm3 (3.60-5.2); RDW 14.6 % (11.6-15.6); WHITE BLOOD COUNT 7.6 K/mm3 (4.0-10.0)
--- NOTE | 2019-09-27 06:30 | PDOC ---
Attending Attestation - Resident Resident Name: Mark Chávez - ED Attending Attestation I have performed the following: I have examined & evaluated the patient, The case was reviewed & discussed with the resident, I agree w/resident's findings & plan - HPI HPI: 09/27/19 06:29 see resident hpi - Physicial Exam PE: 09/27/19 06:29 agree with resident exam - Medical Decision Making 09/27/19 06:29 84-year-old female with history of asthma and complaints of shortness of breath Chest x-ray and labs pending [facility]
[2019-09-27 06:34] LABS: ALK PHOS 58 U/L (45-117); ANION GAP 6 MMOL/L (8-16); BILIRUBIN,TOTAL 0.4 mg/dL (0.2-1); CALCIUM 8.7 mg/dL (8.5-10.1); CHLORIDE 97 mmol/L (98-107); CO2 30 mmol/L (21-32); CREATININE 0.5 mg/dL (0.55-1.3); GLUCOSE,RANDOM 90 mg/dL (74-106); POTASSIUM 4.3 mmol/L (3.5-5.1); SGOT/AST 18 U/L (15-37); SGPT/ALT 22 U/L (13-61); SODIUM 133 mmol/L (136-145); TOT PROT 5.9 g/dl (6.4-8.2)
--- NOTE | 2019-09-27 08:53 | PDOC ---
*Physical Exam - Vital Signs Last Vital Signs Temp Pulse Resp BP Pulse Ox 98 F 83 20 170/74 95 09/27/19 04:35 09/27/19 04:35 09/27/19 04:35 09/27/19 04:35 09/27/19 04:35 ED Treatment Course - LABORATORY CBC & Chemistry Diagram: 09/27/19 05:15 09/27/19 05:15 - ADDITIONAL ORDERS Additional order review: Laboratory Results 09/27/19 09/27/19 05:15 05:15 Sodium 133 L Potassium 4.3 Chloride 97 L Carbon Dioxide 30 Anion Gap 6 L BUN 14.0 Creatinine 0.5 L Est GFR (CKD-EPI)AfAm 103.73 Est GFR (CKD-EPI)NonAf 89.50 Random Glucose 90 Calcium 8.7 Total Bilirubin 0.4 AST 18 ALT 22 Alkaline Phosphatase 58 Creatine Kinase 48 Troponin I < 0.02 B-Natriuretic Peptide 187.5 Total Protein 5.9 L Albumin 3.0 L 09/27/19 05:15 RBC 4.44 MCV 78.9 L MCHC 33.0 RDW 14.6 MPV 8.0 Neutrophils % 75.2 Lymphocytes % 11.9 Monocytes % 9.3 Eosinophils % 2.9 D Basophils % 0.7 - Medications Given in the ED: ED Medications Discontinued Medications Generic Name Dose Route Start Last Admin Trade Name Freq PRN Reason Stop Dose Admin Albuterol/Ipratropium 1 amp 09/27/19 05:14 09/27/19 05:44 Duoneb - NEB 09/27/19 05:15 1 amp ONCE ONE Administration Methylprednisolone Sodium Succinate 125 mg 09/27/19 05:26 09/27/19 06:19 Solu-Medrol - IVPUSH 09/27/19 05:27 125 mg ONCE ONE Administration Medical Decision Making - Medical Decision Making 09/27/19 08:[address] Chávez. Patient is 84F with history of s/p pacemaker placement, HTN, HLD, Asthma with sudden onset SOB at 2am. Symptoms have since resolved. Labs wnl. EKG reassuring. Pending CXR and likely discharge. CXR shows no acute process. Patient is asking to go home. Has aides and family available for help. Will discharge home. Discharge - Discharge Information Problems reviewed: Yes Clinical Impression/Diagnosis: Shortness of breath Condition: Good Disposition: HOME - Admission No - Follow up/Referral - Patient Discharge Instructions Patient Printed Discharge Instructions: DI for Shortness of Breath Additional Instructions: Please follow up with your primary care doctor in the next 3-5 days. Please return if you have any new, worsening or concerning symptoms, especially increasing shortness of breath, chest pain and fever. - Post Discharge Activity
--- NOTE | 2019-09-27 11:03 | EKG ---
Test Reason : Blood Pressure : / mmHG Vent. Rate : 077 BPM Atrial Rate : 077 BPM P-R Int : 182 ms QRS Dur : 134 ms QT Int : 390 ms P-R-T Axes : -28 -25 012 degrees QTc Int : 441 ms SINUS RHYTHM WITH FREQUENT ventricular-paced complexes ABNORMAL ECG WHEN COMPARED WITH ECG OF 06-SEP-2019 02:53, VENT. RATE HAS DECREASED BY 33 BPM Confirmed by JOSE MARQUEZ MD ([id number]) on 09/27/2019 11:02:31 AM Referred By: Confirmed By:JOSE MARQUEZ MD
== END 2019-09-27 10:34 ==
LOC: JER 02:27
PROC: 3E0F7GC Introduction of Other Therapeutic Substance into Respiratory Tract, Via Natural or Artificial Opening (ICD-10-PCS; principal; 2019-09-27)
PROC: 3E0333Z Introduction of Anti-inflammatory into Peripheral Vein, Percutaneous Approach (ICD-10-PCS; 2019-09-27)
DX: J45.909 Unspecified asthma, uncomplicated (principal); I10 Essential (primary) hypertension; E78.5 Hyperlipidemia, unspecified; Z95.0 Presence of cardiac pacemaker
CPT/HCPCS: 36415; 71045-TC-FY; 80053; 82550; 83880; 84484; 85025; 93005; 93010; 94640; 96374; 99282-25

== ENCOUNTER 2019-10-01 03:03 | Inpatient (IN) | payer OTHER, MEDICARE ==
[2019-10-01] MEDS ORDERED: ALBUTEROL SO4 2.5/IPRATROPIUM 0.5 INH SOL 3 ML VIAL.NEB. NEB ONE ×3 (04:24→05:02)
--- NOTE | 2019-10-01 04:24 | PDOC ---
History of Present Illness - General Chief Complaint: Shortness of Breath Stated Complaint: SHORTNESS OF BREATH Time Seen by Provider: 10/01/19 03:35 History Source: Patient Exam Limitations: No Limitations - History of Present Illness Initial Comments: HPI: 84 y/o female presenting to [facility] ER from [facility] complaining of shortness of breath. Pt is a poor historian and unable or unwilling to give complete timeline of symptoms or events that prompted calling an ambulance this evening. Pt states she is short of breath and she cannot breath. Denies fevers , coughing, chest pain, wheezing, vomiting, or abdominal pain. Symptoms did not improve with albuterol inhaler. Reports feeling better after receiving oxygen therapy in ambulance. Pt has been evaluated at this hospital multiple times over the month of August 2019 for similar symptoms. Was discharged home with asthma exacerbation. Did not follow up with her replanter (cannot remember the physicians name). Medical Hx: - HTN - HLD - RA - Cardiac Pacemaker Placement - OA - Asthma - H/o pneumonia Review of Systems: In addition to that documented in the HPI above, the additional ROS was obtained : Constitutional- Denies fevers or chills Head- Denies vision changes ENMT- Denies sore throat CV- Denies chest pain Resp- Per HPI GI- Denies vomiting or diarrhea - Denies painful urination MSK- Denies recent trauma Skin- Denies new rashes Neuro- Denies new numbness or tingling or weakness Endocrine- Denies polyuria Heme- Denies bleeding or bruising Physical Examination: Vital signs and nursing notes reviewed. Constitutional- Nontoxic adult female in no acute distress or obvious discomfort. Found semi-fowlers on hospital bed. Head- Normocephalic. No obvious external signs of trauma. Neck- Supple, trachea is midline. No JVD. Cardiovascular / Chest- Regular rate and regular rhythm. No murmur, rubs, clicks , or gallops. Peripheral pulses- radial pulses full. Pacemaker in left upper aspect of chest. Trace pretibial edema bilaterally. Respiratory- Breathing unlabored, but mildly tachypneic. Speaking in multi-word responses without pausing for breath. Equal chest rise and fall. Rhonchi in right lower base. Diffuse trace end-expiratory wheezing with referred upper airway sound. No stridor or rales. Gastrointestinal- abdomen is soft, non-tender, non-distended. Neuro- Alert and oriented x4. Moving all four extremities spontaneously. Skin- Warm, dry, and intact. Psych- Affect- appropriate. Mood- normal. Speech was non-labored, non- pressured. MDM: 84 y/o female presenting with shortness of breath for unknown duration. Afebrile. Vitals remarkable for hypoxia. No tachycardia or hypotension. Oxygen saturation improved with low flow oxygen therapy via nasal cannula. Physical exam as described above. EKG unremarkable for ischemic findings. CXR revealed new right lower lobe infiltrate when compared to CXR obtained three days ago. No blunting of the left lower costophrenic angle. Interpretation per ED wet read. Official radiology report pending. Ordered Ceftriaxone and Azithromycin for abx coverage. Ordered DuoNeb for trace wheeze. Reviewed laboratory data. Noted leukocytosis with left shift. Will admit the pt for right lower lobe pneumonia complicated by hypoxia and tachypnea. 01 Oct 2019 05:20 AM Microblog sent to [facility] for admission. Awaiting call back. Pt noted to be tachycardic to 100s. Pt has a pacemaker in place but cannot provide further cardiac history. No prior Echos available for review. Will not administer fluid bolus. Already receiving small bolus from IVPB antibiotics. Anticipate downtrend with acetaminophen administration as well. 01 Oct 2019 06:57 AM Telephone discussion with resident Dr. Pruitt. Verbally appraised of the pts HPI, ED course, and current plan of management. Present the pt and reply to Microblog with admitting attendings name. 01 Oct 2019 07:13 AM Pt signed out to resident Dr. Abel after she was verbally appraised of the pts HPI, current ED course, and plan of management. Will f/u pending admission. Sam Hernandez M.D., PGY2 Emergency Medicine Resident Past History - Past Medical History Allergies/Adverse Reactions: Allergies Allergy/AdvReac Type Severity Reaction Status Date / Time pollen extracts Allergy Unknown Verified 10/01/19 03:10 leflunomide [From Arava] Allergy Verified 10/01/19 03:10 Home Medications: Ambulatory Orders Folic Acid 2 mg PO DAILY 07/25/19 Losartan Potassium 50 mg PO DAILY 07/25/19 Naproxen 500 mg PO DAILY PRN 07/25/19 [place]-3 Fatty Acids [[place]-3] 1,000 mg PO DAILY 07/25/19 Ubidecarenone [Coenzyme Q10] 100 mg PO ASDIR 08/17/19 Acetaminophen 500 mg PO TID PRN 09/06/19 Albuterol 0.083% Nebulizer Deborah [Ventolin 0.083%] 1 neb NEB BID 09/06/19 Cholecalciferol (Vitamin D3) [Vitamin D3] 2,000 unit PO DAILY 09/06/19 Polyethylene Glycol 3350 17 gm PO DAILY PRN 09/06/19 Albuterol Sulfate Inhaler - [Ventolin Hfa Inhaler -] 2 inh PO Q6H 10/01/19 Fluticasone Propion/Salmeterol [Wixela 250-50 Inhub] 1 puff IH BID 10/01/19 Asthma: Yes COPD: No HTN: Yes Hypercholesterolemia: Yes - Immunization History Td Vaccination: Yes TDAP Vaccination: Yes Immunization Up to Date: Yes - Psycho Social/Smoking Cessation Hx Smoking History: Never smoked Have you smoked in the past 12 months: No Information on smoking cessation initiated: No Hx Alcohol Use: No Drug/Substance Use Hx: No *Physical Exam - Vital Signs Last Vital Signs Temp Pulse Resp BP Pulse Ox 92 H 24 H 152/87 96 10/01/19 03:10 10/01/19 03:10 10/01/19 03:10 10/01/19 03:10 Vital Signs - Vital Signs #1 Time: 04:23 Pulse Rate: 96 Respiratory Rate: 21 O2 Sat by Pulse Oximetry (%): 91 Oxygen Delivery Method: Room Air Procedures - Additional Procedures Progress: Peripheral IV Line Procedure Note Procedure: peripheral intravenous line insertion Indication: need for IV access, blood specimens, IV medications Database Management System Specialist: Sam Hernandez M.D., PGY2 Consent: verbal Preparation: isopropyl alcohol Technique: using aseptic technique a vein in the right AC was cannulated with an 20 gauge angiocath. Blood specimens were obtained for analysis. Catheter flushed with saline without local swelling or pain, and was secured in the usual fashion. Patient tolerated the procedure well. EBL minimal. ED Treatment Course - LABORATORY CBC & Chemistry Diagram: 10/01/19 04:21 10/01/19 04:21 - RADIOLOGY Radiology Studies Ordered: Category Date Time Status CXRPORT [CHEST X-RAY PORTABLE*] [RAD] Stat Radiology 10/01/19 03:38 Taken Discharge - Discharge Information Problems reviewed: Yes Clinical Impression/Diagnosis: Hypoxia, On supplemental oxygen by nasal cannula Pneumonia Qualifiers: Pneumonia type: due to unspecified organism Laterality: right Lung location: lower lobe of lung Qualified Code(s): J18.9 - Pneumonia, unspecified organism Leukocytosis Qualifiers: Leukocytosis type: unspecified Qualified Code(s): D72.829 - Elevated white blood cell count, unspecified Condition: Stable - Admission Yes - Follow up/Referral - Patient Discharge Instructions - Post Discharge Activity
[2019-10-01] MEDS ORDERED: CEFTRIAXONE 1,000 MG in DEXTROSE 5%-WATER - 50 ML IVPB ONE (04:31)
[2019-10-01] MEDS ORDERED: AZITHROMYCIN IVPB 500 MG in DEXTROSE 5%-WATER - 250 ML IVPB ONE (04:31)
[2019-10-01] MEDS ORDERED: AZITHROMYCIN IVPB 500 MG/250 ML BAG IVPB ONE (04:54)
[2019-10-01] MEDS ORDERED: CEFTRIAXONE 1 GM/50 ML BAG ONE (04:54)
[2019-10-01 05:01] LABS: BASO % 0.2 % (0-2.0); HEMATOCRIT 41.7 % (32.4-45.2); HEMOGLOBIN 13.8 GM/dL (10.7-15.3); LYMPH % 4.1 % (8-40); MCH 25.9 pg (25.7-33.7); MCHC 33.1 g/dl (32.0-36.0); MEAN CELL VOLUME 78.3 fl (80-96); MEAN PLT VOLUME 8.2 fl (7.5-11.1); MONO % 3.3 % (3.8-10.2); NEUT % 92.4 % (42.8-82.8); PLATELET COUNT 267 K/MM3 (134-434); RBC 5.33 M/mm3 (3.60-5.2); RDW 14.7 % (11.6-15.6); WHITE BLOOD COUNT 14.5 K/mm3 (4.0-10.0)
--- NOTE | 2019-10-01 05:14 | PDOC ---
Attending Attestation - Resident Resident Name: HernandezSam - ED Attending Attestation I have performed the following: I have examined & evaluated the patient, The case was reviewed & discussed with the resident, I agree w/resident's findings & plan, Exceptions are as noted - HPI HPI: 10/01/19 07:19 See resident HPI - Physicial Exam PE: 10/01/19 07:20 Agree with documented exam - Medical Decision Making 10/01/19 07:20 84F sob, dyspneic, hypoxic, febrile f/u labs, cxr, ekg, flu swab dispo per clinical course, likely admit New possible infiltrate on CXR admit for inpatient tx w/ abx
[2019-10-01 05:15] LABS: ALBUMIN 3.6 g/dl (3.4-5.0); BILIRUBIN,TOTAL 0.6 mg/dL (0.2-1); BLOOD UREA NITROGEN 13.2 mg/dL (7-18); CALCIUM 9.2 mg/dL (8.5-10.1); CREATININE 0.6 mg/dL (0.55-1.3); N-TERMINAL BNP 489.8 pg/ml (5-450); TOT PROT 7.3 g/dl (6.4-8.2)
[2019-10-01] MEDS ORDERED: ACETAMINOPHEN 325 MG TABLET (FP) PO ONE (05:58)
[2019-10-01] MEDS ORDERED: ACETAMINOPHEN 325 MG TABLET (FP) ONE (06:01)
--- NOTE | 2019-10-01 07:08 | HP ---
CHIEF COMPLAINT: shortness of breath PCP: HISTORY OF PRESENT ILLNESS: Patient is an 84 year old female with history of hypertension, hyperlipidemia, arthritis, presents with complaint of shortness of breath. Patient admits symptoms ongoing for the past month, without clear inciting factor. Admits associated cough, occasionally productive with whitish sputum. Patient has attempted to use her inhaler, and nebulizer with increased frequency, which has not been palliative. Denies subjective fevers, chills. Patient denies prior intubation. ER course was notable for: (1) Chest radiograph with right lower lobe infiltrate, blunting of left costophrenic angle (2) WBC 14.5, febrile to 101.1F. 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 Smoking: Denies smoking cigarettes Alcohol: Denies alcohol consumption Drugs: Denies illicit drug use Allergies pollen extracts Allergy (Unknown, Verified 10/01/19 03:10) leflunomide [From Arava] Allergy (Verified 10/01/19 03:10) HOME MEDICATIONS: Home Medications Medication Instructions Recorded Folic Acid 2 mg PO DAILY 07/25/19 Losartan Potassium 50 mg PO DAILY 07/25/19 Naproxen 500 mg PO DAILY PRN 07/25/19 [place]-3 Fatty Acids [[place]-3] 1,000 mg PO DAILY 07/25/19 Ubidecarenone [Coenzyme Q10] 100 mg PO ASDIR 08/17/19 Acetaminophen 500 mg PO TID PRN 09/06/19 Albuterol 0.083% Nebulizer Deborah 1 neb NEB BID 09/06/19 [Ventolin 0.083%] Cholecalciferol (Vitamin D3) 2,000 unit PO DAILY 09/06/19 [Vitamin D3] Polyethylene Glycol 3350 17 gm PO DAILY PRN 09/06/19 Albuterol Sulfate Inhaler - 2 inh PO Q6H 10/01/19 [Ventolin Hfa Inhaler -] Fluticasone Propion/Salmeterol 1 puff IH BID 10/01/19 [Wixela 250-50 Inhub] REVIEW OF SYSTEMS CONSTITUTIONAL: Absent: fever, chills, diaphoresis, generalized weakness, malaise, loss of appetite, weight change HEENT: Absent: rhinorrhea, nasal congestion, throat pain, throat swelling, difficulty swallowing, mouth swelling, ear pain, eye pain, visual changes CARDIOVASCULAR: Absent: chest pain, syncope, palpitations, irregular heart rate, lightheadedness , peripheral edema RESPIRATORY: Admits: cough, shortness of breath. Absent: dyspnea with exertion, orthopnea, wheezing, stridor, hemoptysis GASTROINTESTINAL: Absent: abdominal pain, abdominal distension, nausea, vomiting, diarrhea, constipation, melena, hematochezia GENITOURINARY: Absent: dysuria, frequency, urgency, hesitancy, hematuria, flank pain, genital pain MUSCULOSKELETAL: Absent: myalgia, arthralgia, joint swelling, back pain, neck pain SKIN: Absent: rash, itching, pallor HEMATOLOGIC/IMMUNOLOGIC: Absent: easy bleeding, easy bruising, lymphadenopathy, frequent infections ENDOCRINE: Absent: unexplained weight gain, unexplained weight loss, heat intolerance, cold intolerance NEUROLOGIC: Absent: headache, focal weakness or paresthesias, dizziness, unsteady gait, seizure, mental status changes, bladder or bowel incontinence PSYCHIATRIC: Absent: anxiety, depression, suicidal or homicidal ideation, hallucinations. PHYSICAL EXAMINATION Vital Signs - 24 hr 10/01/19 10/01/19 10/01/19 03:10 04:30 06:26 Temperature 101.1 F H Pulse Rate 92 H 111 H Pulse Rate [#1] Pulse Rate [ 101 H Right] Respiratory 24 H 24 H 18 Rate Respiratory Rate [#1] Blood Pressure 152/87 Blood Pressure 150/69 [Left Arm] O2 Sat by Pulse 96 96 99 Oximetry (%) O2 Sat by Pulse Oximetry (%) [ #1] 10/01/19 07:02 Temperature Pulse Rate Pulse Rate [#1] 96 H Pulse Rate [ Right] Respiratory Rate Respiratory 21 H Rate [#1] Blood Pressure Blood Pressure [Left Arm] O2 Sat by Pulse Oximetry (%) O2 Sat by Pulse 91 L Oximetry (%) [ #1] GENERAL: Awake, alert, and fully oriented, in no acute distress. HEAD: Normal with no signs of trauma. EYES: Pupils equal, round and reactive to light, extraocular movements intact, sclera anicteric, conjunctiva clear. No lid lag. EARS, NOSE, THROAT: Ears normal, nares patent, oropharynx clear without exudates. Moist mucous membranes. NECK: Normal range of motion, supple without lymphadenopathy, JVD, or masses. LUNGS: Good inspiratory effort, with rhonchi auscultated bilaterally. Faint crackles left lower lobe. No accessory muscle use. HEART: Regular rate and rhythm, normal S1 and S2 without murmur, rub or gallop. ABDOMEN: Soft, nontender, not distended. Normoactive bowel sounds, no guarding, no rebound tenderness. Umbilical herna soft, easily reducible. MUSCULOSKELETAL: Normal range of motion at all joints. No bony deformities or tenderness. EXTREMITIES: 2+ radial, dorsalis pedis pulses, warm, well-perfused. Trace peripheral edema bilateral lower extremities. NEUROLOGICAL: Cranial nerves II-XII intact. Normal speech. PSYCHIATRIC: Cooperative. Good eye contact. Appropriate mood and affect. SKIN: Warm, dry. Laboratory Results - last 24 hr 10/01/19 10/01/19 10/01/19 04:21 04:21 04:21 WBC 14.5 H RBC 5.33 H Hgb 13.8 Hct 41.7 D MCV 78.3 L MCH 25.9 MCHC 33.1 RDW 14.7 Plt Count 267 MPV 8.2 Absolute Neuts (auto) 13.4 H Neutrophils % 92.4 H D Lymphocytes % 4.1 L D Monocytes % 3.3 L Eosinophils % 0.0 D Basophils % 0.2 Nucleated RBC % 0 D-Dimer Sodium Cancelled 127 L Potassium Cancelled 4.0 Chloride Cancelled 91 L Carbon Dioxide Cancelled 28 Anion Gap Cancelled 9 BUN Cancelled 13.2 Creatinine Cancelled 0.6 Est GFR (CKD-EPI)AfAm Cancelled 97.69 Est GFR (CKD-EPI)NonAf Cancelled 84.29 Random Glucose Cancelled 110 H Calcium Cancelled 9.2 Total Bilirubin Cancelled 0.6 AST Cancelled 17 ALT Cancelled 26 Alkaline Phosphatase Cancelled 74 Troponin I B-Natriuretic Peptide 489.8 H Total Protein Cancelled 7.3 Albumin Cancelled 3.6 Influenza A (Rapid) Influenza B (Rapid) 10/01/19 10/01/19 10/01/19 04:21 04:41 05:30 WBC RBC Hgb Hct MCV MCH MCHC RDW Plt Count MPV Absolute Neuts (auto) Neutrophils % Lymphocytes % Monocytes % Eosinophils % Basophils % Nucleated RBC % D-Dimer Cancelled Sodium Potassium Chloride Carbon Dioxide Anion Gap BUN Creatinine Est GFR (CKD-EPI)AfAm Est GFR (CKD-EPI)NonAf Random Glucose Calcium Total Bilirubin AST ALT Alkaline Phosphatase Troponin I < 0.02 B-Natriuretic Peptide Total Protein Albumin Influenza A (Rapid) Negative Influenza B (Rapid) Negative ASSESSMENT/PLAN: Patient is an 84 year old female with history of hypertension, hyperlipidemia, arthritis, presents with complaint of shortness of breath. Sepsis secondary to right lower lobe pneumonia -Chest radiograph reveals right lower lobe infiltrate, blunting of left costophrenic angle -WBC 14.5, febrile to 101.1F. Tachycardic to 111BPM, with saturation 91% room air. -Ceftriaxone 1000mg IV Q24 hours -Doxycycline 100mg IV Q12 hours -Infleunza negative. Follow Urine for Legionella, pneumonia antigen -Pulmonology evaluation (Dr. Angel) ?Heart failure -BNP elevated to 498 (acutely elevated from 187.5 last week). -Obtain cardiac transthoracic ECHO Hyponatremia -Appears chronic; however will obtain urine electrolytes -Gentle hydration with normal saline at 83mL/ hour Hypertension -Continue home Losartan FEN -Gentle hydration with normal saline at 83mL/ hour -Hyponatremia -Regular diet Prohylaxis -Lovenx 40mg subq daily Disposition -Admit to medical surgical floor Visit type - Emergency Visit Emergency Visit: Yes ED Registration Date: 10/01/19 Care time: The patient presented to the Emergency Department on the above date and was hospitalized for further evaluation of their emergent condition. - New Patient This patient is new to me today: Yes Date on this admission: 10/01/19 - Critical Care Critical Care patient: No ATTENDING PHYSICIAN STATEMENT I saw and evaluated the patient. I reviewed the resident's note and discussed the case with the resident. I agree with the resident's findings and plan as documented. SUBJECTIVE: OBJECTIVE: ASSESSMENT AND PLAN:
[2019-10-01] MEDS ORDERED: ACETAMINOPHEN 325 MG TABLET (FP) PO PRN (10:00)
[2019-10-01] MEDS ORDERED: SODIUM CHLORIDE 1,000 ML IV SCH (10:00)
[2019-10-01] MEDS ORDERED: PATIENT'S OWN MEDICATION (NON-FORMULARY) (Fluticasone Propion/Salmeterol [Wixela 250-50 In IH SCH (10:00)
[2019-10-01] MEDS: ENOXAPARIN NA (PORCINE) 40 MG/0.4 ML DISP.SYRIN SQ SCH (11:54)
[2019-10-01] MEDS: LOSARTAN POTASSIUM 50 MG TABLET (FP) PO SCH (11:55)
[2019-10-01] MEDS: BUDESONIDE/FORMETEROL FUMARATE 160/4.5 mcg INHALER IH SCH ×2 (12:04→22:22)
--- NOTE | 2019-10-01 12:29 | ECHO ---
Name: ABELARDO SHETH Exam:Adult Echocardiogram Study Date: 10/01/2019 09:25 AM Age: 84 yrs Height: 63 in Weight: 160 lb BSA: 1.8 m2 MMode/2D Measurements & Calculations LVOT diam: 2.1 cm LVLd ap4: 6.8 cm EDV(MOD-sp4): 67.0 ml LVLs ap4: 5.6 cm ESV(MOD-sp4): 32.0 ml SV(MOD-sp4): 35.0 ml RV S Theodore: 17.7 cm/sec Doppler Measurements & Calculations MV E max theodore: 83.9 cm/sec Ao V2 max: 258.9 cm/sec MV A max theodore: 143.1 cm/sec Ao max P.1 mmHg MV E/A: 0.59 Ao V2 mean: 167.5 cm/sec MV dec time: 0.06 sec Ao mean P.5 mmHg Ao V2 VTI: 53.9 cm LOIDA(V,D): 2.0 cm2 LV V1 max P.8 mmHg TR max theodore: 251.1 cm/sec LV V1 max: 156.7 cm/sec TR max P.2 mmHg PA V2 max: 137.1 cm/sec Med Peak E' Theodore: 5.8 cm/sec PA max P.5 mmHg Med E/e': 14.4 Procedure A complete two-dimensional transthoracic echocardiogram was performed (2D, M-mode, Doppler and color flow Doppler). The study was technically difficult with many images being suboptimal in quality. Left Ventricle There is mild concentric left ventricular hypertrophy. The left ventricular ejection fraction is norm al. Ejection Fraction = 60-65%. No regional wall motion abnormalities noted. Right Ventricle The right ventricle is normal in size and function. Atria Normal left and right atrial size and function. Mitral Valve There is no mitral regurgitation noted. Tricuspid Valve No tricuspid regurgitation. There was insufficient TR detected to calculate RV systolic pressure. Aortic Valve Moderate valvular aortic stenosis. No aortic regurgitation is present. Pulmonic Valve There is no pulmonic valvular regurgitation. Great Vessels The aortic root is normal size. Pericardium/Pleura There is no pericardial effusion. Interpretation Summary The study was technically difficult with many images being suboptimal in quality. The left ventricular ejection fraction is normal. There is mild concentric left ventricular hypertrophy. The right ventricle is normal in size and function. Moderate valvular aortic stenosis. MD Ar Donis 10/01/2019 12:28 PM
[2019-10-01] MEDS: ALBUTEROL SO4 0.083% IH SOL 2.5 MG/3 ML VIAL.NEB. NEB SCH ×4 (12:30→21:18)
[2019-10-01] MEDS: ALBUTEROL SO4 2.5/IPRATROPIUM 0.5 INH SOL 3 ML VIAL.NEB. NEB SCH ×4 (12:30→20:10)
--- NOTE | 2019-10-01 12:59 | CON.PULM ---
Consult Consult Specialty:: PULM/CCM Referred by:: Hospitalist Reason for Consultation:: SOB - History of Present Illness Chief Complaint: SOB History of Present Illness: 84 F, history of Intermittent Asthma (unknown PEF, not steroid dependent, never intubated, last AE was over 1 year ago), hypertension, hyperlipidemia, and arthritis. Previous history of PNA about 1 year ago in [place]. No history consistent with OSAS. No travel history or sick contacts. No hemoptysis or night sweats. Admitted via the ER due to worsening SOB, SHEIKH, and cough that has been refractory to her BD TX. No outpatient ABX. CXR: RLL infiltrate. - History Source History Provided By: Patient Limitations to Obtaining History: No Limitations - Past Medical History Pulmonary: Yes: Asthma, Bronchitis, Pneumonia. No: Cancer, COPD, O2 Dependent, Previously Intubated, Pulmonary Embolus, Pulmonary Fibrosis, Sleep Apnea - Alcohol/Substance Use Hx Alcohol Use: No - Smoking History Smoking history: Never smoked Have you smoked in the past 12 months: No Home Medications - Allergies Allergies/Adverse Reactions: Allergies Allergy/AdvReac Type Severity Reaction Status Date / Time pollen extracts Allergy Unknown Verified 10/01/19 03:10 leflunomide [From Arava] Allergy Verified 10/01/19 03:10 - Home Medications Home Medications: Ambulatory Orders Folic Acid 2 mg PO DAILY 07/25/19 Losartan Potassium 50 mg PO DAILY 07/25/19 Naproxen 500 mg PO DAILY PRN 07/25/19 [place]-3 Fatty Acids [[place]-3] 1,000 mg PO DAILY 07/25/19 Ubidecarenone [Coenzyme Q10] 100 mg PO ASDIR 08/17/19 Acetaminophen 500 mg PO TID PRN 09/06/19 Albuterol 0.083% Nebulizer Deborah [Ventolin 0.083%] 1 neb NEB BID 09/06/19 Cholecalciferol (Vitamin D3) [Vitamin D3] 2,000 unit PO DAILY 09/06/19 Polyethylene Glycol 3350 17 gm PO DAILY PRN 09/06/19 Albuterol Sulfate Inhaler - [Ventolin Hfa Inhaler -] 2 inh PO Q6H 10/01/19 Fluticasone Propion/Salmeterol [Wixela 250-50 Inhub] 1 puff IH BID 10/01/19 Review of Systems - Review of Systems Constitutional: reports: Chills, Fever, Loss of Appetite, Malaise. denies: Night Sweats, Unintentional Wgt. Loss Eyes: reports: No Symptoms HENT: reports: No Symptoms Neck: reports: No Symptoms Cardiovascular: reports: Shortness of Breath. denies: Chest Pain, Edema, Palpitations Respiratory: reports: Cough, SOB, SOB on Exertion. denies: Hemoptysis, Orthopnea, PND, Snoring, Wheezing Gastrointestinal: reports: No Symptoms Genitourinary: reports: No Symptoms Breasts: reports: No Symptoms Reported Musculoskeletal: reports: No Symptoms Integumentary: reports: No Symptoms Neurological: reports: No Symptoms Endocrine: reports: No Symptoms Hematology/Lymphatic: reports: No Symptoms Psychiatric: reports: No Symptoms Physical Exam Vital Sings: Vital Signs Temperature 101.1 F H 10/01/19 04:30 Pulse Rate 96 H 10/01/19 07:14 Respiratory Rate 21 H 10/01/19 07:14 Blood Pressure 150/69 10/01/19 06:26 O2 Sat by Pulse Oximetry (%) 91 L 10/01/19 07:14 Constitutional: Yes: Mild Distress Eyes: Yes: Conjunctiva Clear, EOM Intact HENT: Yes: Atraumatic, Normocephalic Neck: Yes: Supple, Trachea Midline Cardiovascular: Yes: Regular Rate and Rhythm Respiratory: Yes: Cough, Diminished, On Nasal O2, Rhonchi, SOB, SOB on Exertion , Tachypnea. No: Accessory Muscle Use, Rales, Stridor, Wheezes ...Inspection: Yes: WNL ...Clubbing: No Gastrointestinal: Yes: Normal Bowel Sounds, Soft Renal/: Yes: WNL Breast(s): Yes: WNL Musculoskeletal: Yes: WNL Extremities: Yes: WNL Edema: No Peripheral Pulses WNL: Yes Integumentary: Yes: WNL Neurological: Yes: WNL, Alert, Oriented ...Motor Strength: WNL Psychiatric: Yes: WNL, Alert, Oriented Labs: CBC, BMP 10/01/19 04:21 10/01/19 04:21 Imaging - Results Chest X-ray: Report Reviewed, Image Reviewed Problem List - Problems (1) Hypoxia Code(s): R09.02 - HYPOXEMIA (2) Leukocytosis Code(s): D72.829 - ELEVATED WHITE BLOOD CELL COUNT, UNSPECIFIED Qualifiers: Leukocytosis type: unspecified Qualified Code(s): D72.829 - Elevated white blood cell count, unspecified (3) On supplemental oxygen by nasal cannula Code(s): Z78.9 - OTHER SPECIFIED HEALTH STATUS (4) Pneumonia Code(s): J18.9 - PNEUMONIA, UNSPECIFIED ORGANISM Qualifiers: Pneumonia type: due to unspecified organism Laterality: right Lung location: lower lobe of lung Qualified Code(s): J18.9 - Pneumonia, unspecified organism (5) Shortness of breath Code(s): R06.02 - SHORTNESS OF BREATH (6) Asthma Code(s): J45.909 - UNSPECIFIED ASTHMA, UNCOMPLICATED (7) Thyroid nodule Code(s): E04.1 - NONTOXIC SINGLE THYROID NODULE Assessment/Plan ABX: Rocephin / Doxycycline O2 as needed BD TX No clear indication for systemic steroids VTE prophylaxis Check sputum Check urine antigen Symbicort BID No smoking Will follow Thank you. Dr Cardenas
--- NOTE | 2019-10-01 13:21 | EKG ---
Test Reason : Blood Pressure : / mmHG Vent. Rate : 094 BPM Atrial Rate : 094 BPM P-R Int : 188 ms QRS Dur : 132 ms QT Int : 380 ms P-R-T Axes : 073 144 049 degrees QTc Int : 475 ms SINUS RHYTHM WITH PREMATURE ATRIAL COMPLEXES RIGHT BUNDLE BRANCH BLOCK ABNORMAL ECG WHEN COMPARED WITH ECG OF 27-SEP-2019 05:57, SINUS RHYTHM HAS REPLACED ELECTRONIC VENTRICULAR PACEMAKER Confirmed by SHREYA GARCIA MD ([id number]) on 10/01/2019 1:21:02 PM Referred By: Confirmed By:SHREYA GARCIA MD
[2019-10-01 14:11] LABS: ANISOCYTOSIS 0; MACROCYTOSIS 0; PLATELET ESTIMATE NORMAL
--- NOTE | 2019-10-01 18:39 | PN ---
Teaching Attending Note Name of Resident: Nico Pruitt ATTENDING PHYSICIAN STATEMENT I saw and evaluated the patient. I reviewed the resident's note and discussed the case with the resident. I agree with the resident's findings and plan as documented. 84 F h/o HTN, HLD, OA, presents with complaint of shortness of breath x1 month. More recently endorses worsening of SOB w/ productive cough. Not improved w/ inhaler/nebs. Denies fever/chills/syncope/LOC. Denies ever being intubated. In ED pt. found to be tachycardic, hypoxic w/ CXR revealing RLL infiltrate. PE GA mild distress, alert and orientated HEENT NC/AT, EOMI, no JVD Chest coarse b/l BS, mild increased work of breathing CVS S1, S2+, sinus tachycardia Abd Soft, NT, ND Ext No LE edema Vital Signs (72 hours) 10/01/19 10/01/19 10/01/19 03:10 04:30 06:26 Temperature 101.1 F H Pulse Rate 92 H 111 H Pulse Rate [#1] Pulse Rate [ 101 H Right] Respiratory 24 H 24 H 18 Rate Respiratory Rate [#1] Blood Pressure 152/87 Blood Pressure 150/69 [Left Arm] O2 Sat by Pulse 96 96 99 Oximetry (%) O2 Sat by Pulse Oximetry (%) [ #1] 10/01/19 10/01/19 10/01/19 07:14 09:00 12:58 Temperature 98.4 F 98.4 F Pulse Rate 100 H 100 H Pulse Rate [#1] 96 H Pulse Rate [ Right] Respiratory 20 20 Rate Respiratory 21 H Rate [#1] Blood Pressure 158/91 158/91 Blood Pressure [Left Arm] O2 Sat by Pulse 99 Oximetry (%) O2 Sat by Pulse 91 L Oximetry (%) [ #1] 10/01/19 10/01/19 10/01/19 13:22 14:00 16:52 Temperature 94.1 F L Pulse Rate 99 H 95 H Pulse Rate [#1] Pulse Rate [ Right] Respiratory 20 Rate Respiratory Rate [#1] Blood Pressure 116/68 Blood Pressure [Left Arm] O2 Sat by Pulse 99 Oximetry (%) O2 Sat by Pulse Oximetry (%) [ #1] 10/01/19 16:54 Temperature 99.8 F H Pulse Rate 110 H Pulse Rate [#1] Pulse Rate [ Right] Respiratory 20 Rate Respiratory Rate [#1] Blood Pressure 142/72 Blood Pressure [Left Arm] O2 Sat by Pulse Oximetry (%) O2 Sat by Pulse Oximetry (%) [ #1] Laboratory Results - last 24 hr 10/01/19 10/01/19 10/01/19 04:21 04:21 04:21 WBC 14.5 H RBC 5.33 H Hgb 13.8 Hct 41.7 D MCV 78.3 L MCH 25.9 MCHC 33.1 RDW 14.7 Plt Count 267 MPV 8.2 Absolute Neuts (auto) 13.4 H Neutrophils % 92.4 H D Neutrophils % (Manual) 95.0 H Band Neutrophils % 0.0 Lymphocytes % 4.1 L D Lymphocytes % (Manual) 1.0 L Monocytes % 3.3 L Monocytes % (Manual) 2 L Eosinophils % 0.0 D Eosinophils % (Manual) 0.0 Basophils % 0.2 Basophils % (Manual) 1.0 Myelocytes % (Man) 0 Promyelocytes % (Man) 0 Blast Cells % (Manual) 0 Nucleated RBC % 0 Metamyelocytes 1 Hypochromia 0 Platelet Estimate Normal Platelet Comment Present Polychromasia 0 Poikilocytosis 0 Anisocytosis 0 Microcytosis 0 Macrocytosis 0 [place] Cells 1+ D-Dimer Sodium Cancelled 127 L Potassium Cancelled 4.0 Chloride Cancelled 91 L Carbon Dioxide Cancelled 28 Anion Gap Cancelled 9 BUN Cancelled 13.2 Creatinine Cancelled 0.6 Est GFR (CKD-EPI)AfAm Cancelled 97.69 Est GFR (CKD-EPI)NonAf Cancelled 84.29 Random Glucose Cancelled 110 H Calcium Cancelled 9.2 Total Bilirubin Cancelled 0.6 AST Cancelled 17 ALT Cancelled 26 Alkaline Phosphatase Cancelled 74 Creatine Kinase Troponin I B-Natriuretic Peptide 489.8 H Total Protein Cancelled 7.3 Albumin Cancelled 3.6 Influenza A (Rapid) Influenza B (Rapid) RSV Rapid Group A Strep Rapid 10/01/19 10/01/19 10/01/19 04:21 04:41 05:30 WBC RBC Hgb Hct MCV MCH MCHC RDW Plt Count MPV Absolute Neuts (auto) Neutrophils % Neutrophils % (Manual) Band Neutrophils % Lymphocytes % Lymphocytes % (Manual) Monocytes % Monocytes % (Manual) Eosinophils % Eosinophils % (Manual) Basophils % Basophils % (Manual) Myelocytes % (Man) Promyelocytes % (Man) Blast Cells % (Manual) Nucleated RBC % Metamyelocytes Hypochromia Platelet Estimate Platelet Comment Polychromasia Poikilocytosis Anisocytosis Microcytosis Macrocytosis Glo Cells D-Dimer Cancelled Sodium Potassium Chloride Carbon Dioxide Anion Gap BUN Creatinine Est GFR (CKD-EPI)AfAm Est GFR (CKD-EPI)NonAf Random Glucose Calcium Total Bilirubin AST ALT Alkaline Phosphatase Creatine Kinase Troponin I < 0.02 B-Natriuretic Peptide Total Protein Albumin Influenza A (Rapid) Negative Influenza B (Rapid) Negative RSV Rapid Group A Strep Rapid 10/01/19 10/01/19 10/01/19 11:40 14:00 15:45 WBC RBC Hgb Hct MCV MCH MCHC RDW Plt Count MPV Absolute Neuts (auto) Neutrophils % Neutrophils % (Manual) Band Neutrophils % Lymphocytes % Lymphocytes % (Manual) Monocytes % Monocytes % (Manual) Eosinophils % Eosinophils % (Manual) Basophils % Basophils % (Manual) Myelocytes % (Man) Promyelocytes % (Man) Blast Cells % (Manual) Nucleated RBC % Metamyelocytes Hypochromia Platelet Estimate Platelet Comment Polychromasia Poikilocytosis Anisocytosis Microcytosis Macrocytosis [place] Cells D-Dimer Sodium Potassium Chloride Carbon Dioxide Anion Gap BUN Creatinine Est GFR (CKD-EPI)AfAm Est GFR (CKD-EPI)NonAf Random Glucose Calcium Total Bilirubin AST ALT Alkaline Phosphatase Creatine Kinase 41 Troponin I 0.02 B-Natriuretic Peptide Total Protein Albumin Influenza A (Rapid) Influenza B (Rapid) RSV Rapid Negative Group A Strep Rapid Negative Current Medications Generic Name Dose Route Start Last Admin Trade Name Freq PRN Reason Stop Dose Admin Acetaminophen 650 mg 10/01/19 10:00 Tylenol - PO Q6H PRN FEVER Albuterol Sulfate 1 amp 10/01/19 08:00 10/01/19 17:00 Ventolin 0.083% Nebulizer Soln - NEB Not Given RQ4H [facility] Albuterol/Ipratropium 1 amp 10/01/19 08:00 10/01/19 17:00 Duoneb - NEB Not Given RQID [facility] Budesonide/Formoterol Fumarate 1 puff 10/01/19 10:00 10/01/19 12:04 Symbicort 160/4.5mcg - IH Not Given BID [facility] Cholecalciferol 2,000 unit 10/02/19 10:00 Vitamin D3 - PO DAILY [facility] Enoxaparin Sodium 40 mg 10/01/19 10:00 10/01/19 11:54 Lovenox - SQ 40 mg DAILY [facility] Administration Folic Acid 2 mg 10/02/19 10:00 Folic Acid - PO DAILY [facility] Ceftriaxone Sodium 1 gm/ 50 mls @ 100 mls/hr 10/02/19 10:00 Dextrose IVPB DAILY [facility] Protocol Sodium Chloride 1,000 mls @ 83 mls/hr 10/01/19 10:00 10/01/19 12:15 Normal Saline - IV 10/01/19 22:03 83 mls/hr ASDIR [facility] Administration Doxycycline Hyclate 100 mg/ 100 mls @ 100 mls/hr 10/01/19 22:00 Dextrose IVPB BID [facility] Losartan Potassium 50 mg 10/01/19 10:00 10/01/19 11:55 Cozaar - PO 50 mg DAILY [facility] Administration Jfgwd-0-Yhsz Ethyl Esters 1 gm 10/02/19 10:00 Lovaza - PO DAILY [facility] 84 F h/o HTN, HLD, OA presents with RLL PNA with underlying hypoxemic respiratory distress requiring supplemental oxygen. RLL 2/2 CAP Flu negative, follow RSV/legionella/strep Cont. IV abx for CAP, NC O2 to achieve >90% O2, nebs PRN, pulmonary toileting Pulmonary evaluation: Dr. Cardenas Hyponatremia Likely 2/2 volume depletion, obtain echo, LV function normal volume resuscitate in setting of active infection, follow VS monitor with daily chem Hypertension -Continue home Losartan when BP permits FEN -Gentle hydration with normal saline at 83mL/ hour -chem daily -Regular diet Prohylaxis -Lovenx 40mg subq daily Disposition -Admit to medical surgical floor
[2019-10-01] MEDS ORDERED: PT OWN MED DRAWER 7, Y5N ONE (21:12)
[2019-10-01] MEDS ORDERED: DOXYCYCLINE HYCLATE 100 MG VIAL ONE (21:46)
[2019-10-01] MEDS ORDERED: DEXTROSE 5%-WATER 100 ML IVPB ONE (21:47)
[2019-10-01] MEDS: DOXYCYCLINE INJECTION 100 MG in DEXTROSE 5%-WATER 100 ML IVPB SCH (21:59)
[2019-10-02] MEDS: ALBUTEROL SO4 0.083% IH SOL 2.5 MG/3 ML VIAL.NEB. NEB SCH ×4 (00:30→12:04)
[2019-10-02] MEDS: ALBUTEROL SO4 2.5/IPRATROPIUM 0.5 INH SOL 3 ML VIAL.NEB. NEB SCH ×4 (07:36→20:18)
[2019-10-02 08:10] LABS: HEMATOCRIT 33.9 % (32.4-45.2); MCH 25.8 pg (25.7-33.7); MCHC 32.5 g/dl (32.0-36.0); MEAN CELL VOLUME 79.4 fl (80-96); MEAN PLT VOLUME 8.3 fl (7.5-11.1); PLATELET COUNT 205 K/MM3 (134-434); RBC 4.27 M/mm3 (3.60-5.2); RDW 14.4 % (11.6-15.6); WHITE BLOOD COUNT 7.5 K/mm3 (4.0-10.0)
[2019-10-02 08:35] LABS: ALBUMIN 2.3 g/dl (3.4-5.0); BILIRUBIN,TOTAL 0.5 mg/dL (0.2-1); BLOOD UREA NITROGEN 10.1 mg/dL (7-18); CALCIUM 7.9 mg/dL (8.5-10.1); CREATININE 0.5 mg/dL (0.55-1.3); PHOSPHOROUS 2.7 mg/dL (2.5-4.9); POTASSIUM 3.7 mmol/L (3.5-5.1)
[2019-10-02] MEDS ORDERED: DEXTROSE 5%-WATER - 50 ML IVPB ONE (09:50)
[2019-10-02] MEDS ORDERED: PT OWN MED DRAWER 7, Y5N ONE (09:50)
[2019-10-02] MEDS ORDERED: cefTRIAXone SODIUM 1 GM VIAL ONE (09:50)
[2019-10-02] MEDS: LOSARTAN POTASSIUM 50 MG TABLET (FP) PO SCH (09:51)
[2019-10-02] MEDS: FOLIC ACID 1 MG TABLET (FP) PO SCH (09:52)
[2019-10-02] MEDS: CHOLECALCIFEROL (VIT D3) 1,000 UNIT (25 MCG) TABLET PO SCH (09:52)
[2019-10-02] MEDS: CEFTRIAXONE 1 GM in DEXTROSE 5%-WATER - 50 ML IVPB SCH (09:52)
[2019-10-02] MEDS: ENOXAPARIN NA (PORCINE) 40 MG/0.4 ML DISP.SYRIN SQ SCH (09:52)
[2019-10-02] MEDS: OMEGA-3 ACID ETHYL ESTERS (FATTY-ACIDS) 1 GM CAPSULE (FP) PO SCH (09:52)
[2019-10-02] MEDS: BUDESONIDE/FORMETEROL FUMARATE 160/4.5 mcg INHALER IH SCH ×2 (09:56→21:51)
[2019-10-02] MEDS ORDERED: AZITHROMYCIN IVPB 500 MG/250 ML BAG IVPB SCH (10:00)
--- NOTE | 2019-10-02 10:41 | PN ---
Progress Note (short form) - Note Progress Note: Resting in NAD. Reports breathing feels a little better. Less cough and SOB. No hemoptysis. Aide at the bedside. Intake & Output 09/29/19 09/30/19 10/01/19 10/02/19 23:59 23:59 23:59 23:59 Intake Total 1540 881 Output Total 340 Balance 1540 541 Weight 125 lb 6 oz Last Vital Signs Temp Pulse Resp BP Pulse Ox 100.1 F H 107 H 20 116/60 93 L 10/02/19 07:25 10/01/19 19:52 10/01/19 21:00 10/01/19 19:52 10/01/19 21:00 Active Medications Acetaminophen (Tylenol -) 650 mg PO Q6H PRN PRN Reason: FEVER Albuterol Sulfate (Ventolin 0.083% Nebulizer Soln -) 1 amp NEB RQ4H [facility] Last Admin: 10/02/19 07:37 Dose: Not Given Albuterol/Ipratropium (Duoneb -) 1 amp NEB RQID [facility] Last Admin: 10/02/19 07:36 Dose: 1 amp Budesonide/Formoterol Fumarate (Symbicort 160/4.5mcg -) 1 puff IH BID [facility] Last Admin: 10/02/19 09:56 Dose: 1 puff Cholecalciferol (Vitamin D3 -) 2,000 unit PO DAILY [facility] Last Admin: 10/02/19 09:52 Dose: 2,000 unit Enoxaparin Sodium (Lovenox -) 40 mg SQ DAILY [facility] Last Admin: 10/02/19 09:52 Dose: 40 mg Folic Acid (Folic Acid -) 2 mg PO DAILY [facility] Last Admin: 10/02/19 09:52 Dose: 2 mg Ceftriaxone Sodium 1 gm/ (Dextrose) 50 mls @ 100 mls/hr IVPB DAILY [facility]; Protocol Last Admin: 10/02/19 09:52 Dose: 100 mls/hr Doxycycline Hyclate 100 mg/ (Dextrose) 100 mls @ 100 mls/hr IVPB BID [facility] Last Admin: 10/01/19 21:59 Dose: 100 mls/hr Losartan Potassium (Cozaar -) 50 mg PO DAILY [facility] Last Admin: 10/02/19 09:51 Dose: 50 mg Afjkf-7-Pnon Ethyl Esters (Lovaza -) 1 gm PO DAILY [facility] Last Admin: 10/02/19 09:52 Dose: 1 gm Constitutional: Yes: NAD Eyes: Yes: Conjunctiva Clear, EOM Intact HENT: Yes: Atraumatic, Normocephalic Neck: Yes: Supple, Trachea Midline Cardiovascular: Yes: Regular Rate and Rhythm Respiratory: Yes: Cough, Diminished, On Nasal O2, Rhonchi. No: Accessory Muscle Use, Rales, Stridor, Wheezes ...Inspection: Yes: WNL ...Clubbing: No Gastrointestinal: Yes: Normal Bowel Sounds, Soft Renal/: Yes: WNL Breast(s): Yes: WNL Musculoskeletal: Yes: WNL Extremities: Yes: WNL Edema: No Peripheral Pulses WNL: Yes Integumentary: Yes: WNL Neurological: Yes: WNL, Alert, Oriented ...Motor Strength: WNL Psychiatric: Yes: WNL, Alert, Oriented Labs: Laboratory Results - last 24 hr 10/01/19 10/01/19 10/01/19 04:21 11:40 14:00 WBC RBC Hgb Hct MCV MCH MCHC RDW Plt Count MPV Neutrophils % (Manual) 95.0 H Band Neutrophils % 0.0 Lymphocytes % (Manual) 1.0 L Monocytes % (Manual) 2 L Eosinophils % (Manual) 0.0 Basophils % (Manual) 1.0 Myelocytes % (Man) 0 Promyelocytes % (Man) 0 Blast Cells % (Manual) 0 Metamyelocytes 1 Hypochromia 0 Platelet Estimate Normal Platelet Comment Present Polychromasia 0 Poikilocytosis 0 Anisocytosis 0 Microcytosis 0 Macrocytosis 0 Glo Cells 1+ Sodium Potassium Chloride Carbon Dioxide Anion Gap BUN Creatinine Est GFR (CKD-EPI)AfAm Est GFR (CKD-EPI)NonAf Random Glucose Calcium Phosphorus Total Bilirubin AST ALT Alkaline Phosphatase Creatine Kinase 41 Troponin I 0.02 Total Protein Albumin RSV Rapid Group A Strep Rapid Negative 10/01/19 10/02/19 10/02/19 15:45 06:50 06:50 WBC 7.5 RBC 4.27 Hgb 11.0 Hct 33.9 D MCV 79.4 L MCH 25.8 MCHC 32.5 RDW 14.4 Plt Count 205 D MPV 8.3 Neutrophils % (Manual) Band Neutrophils % Lymphocytes % (Manual) Monocytes % (Manual) Eosinophils % (Manual) Basophils % (Manual) Myelocytes % (Man) Promyelocytes % (Man) Blast Cells % (Manual) Metamyelocytes Hypochromia Platelet Estimate Platelet Comment Polychromasia Poikilocytosis Anisocytosis Microcytosis Macrocytosis Glo Cells Sodium 132 L Potassium 3.7 Chloride 98 Carbon Dioxide 25 Anion Gap 9 BUN 10.1 Creatinine 0.5 L Est GFR (CKD-EPI)AfAm 103.73 Est GFR (CKD-EPI)NonAf 89.50 Random Glucose 81 Calcium 7.9 L Phosphorus 2.7 Total Bilirubin 0.5 AST 16 ALT 15 Alkaline Phosphatase 46 Creatine Kinase Troponin I Total Protein 5.0 L Albumin 2.3 L RSV Rapid Negative Group A Strep Rapid Problem List - Problems (1) Hypoxia Code(s): R09.02 - HYPOXEMIA (2) Leukocytosis Code(s): D72.829 - ELEVATED WHITE BLOOD CELL COUNT, UNSPECIFIED Qualifiers: Leukocytosis type: unspecified Qualified Code(s): D72.829 - Elevated white blood cell count, unspecified (3) On supplemental oxygen by nasal cannula Code(s): Z78.9 - OTHER SPECIFIED HEALTH STATUS (4) Pneumonia Code(s): J18.9 - PNEUMONIA, UNSPECIFIED ORGANISM Qualifiers: Pneumonia type: due to unspecified organism Laterality: right Lung location: lower lobe of lung Qualified Code(s): J18.9 - Pneumonia, unspecified organism (5) Shortness of breath Code(s): R06.02 - SHORTNESS OF BREATH (6) Asthma Code(s): J45.909 - UNSPECIFIED ASTHMA, UNCOMPLICATED (7) Thyroid nodule Code(s): E04.1 - NONTOXIC SINGLE THYROID NODULE Assessment/Plan ABX: Rocephin / Doxycycline O2 as needed BD TX No clear indication for systemic steroids VTE prophylaxis Follow sputum Check urine antigen Symbicort BID Dr Cardenas Problem List - Problems (1) Hypoxia Code(s): R09.02 - HYPOXEMIA (2) Leukocytosis Code(s): D72.829 - ELEVATED WHITE BLOOD CELL COUNT, UNSPECIFIED Qualifiers: Leukocytosis type: unspecified Qualified Code(s): D72.829 - Elevated white blood cell count, unspecified (3) On supplemental oxygen by nasal cannula Code(s): Z78.9 - OTHER SPECIFIED HEALTH STATUS (4) Pneumonia Code(s): J18.9 - PNEUMONIA, UNSPECIFIED ORGANISM Qualifiers: Pneumonia type: due to unspecified organism Laterality: right Lung location: lower lobe of lung Qualified Code(s): J18.9 - Pneumonia, unspecified organism (5) Shortness of breath Code(s): R06.02 - SHORTNESS OF BREATH (6) Asthma Code(s): J45.909 - UNSPECIFIED ASTHMA, UNCOMPLICATED (7) Thyroid nodule Code(s): E04.1 - NONTOXIC SINGLE THYROID NODULE
[2019-10-02] MEDS ORDERED: DEXTROSE 5%-WATER 100 ML IVPB ONE ×2 (11:26→20:54)
[2019-10-02] MEDS ORDERED: DOXYCYCLINE HYCLATE 100 MG VIAL ONE ×2 (11:26→20:54)
[2019-10-02] MEDS: DOXYCYCLINE INJECTION 100 MG in DEXTROSE 5%-WATER 100 ML IVPB SCH ×2 (11:34→21:52)
[2019-10-02] MEDS ORDERED: ALBUTEROL SO4 0.083% IH SOL 2.5 MG/3 ML VIAL.NEB. NEB PRN (12:05)
[2019-10-02] MEDS ORDERED: DOCUSATE NA 100 MG/10 ML UNIT-DOSE CUPS PO PRN (14:14)
[2019-10-02] MEDS ORDERED: POLYETHYLENE GLYCOL 3350 119 GM BTL PO SCH (14:15)
[2019-10-02] MEDS: POLYETHYLENE GLYCOL 3350 119 GM BTL PO SCH (17:36)
[2019-10-02] MEDS: SENNOSIDES 8.6MG TABLET (FP) PO SCH (21:43)
--- NOTE | 2019-10-02 22:05 | PN ---
Physical Exam: 84 F h/o HTN, HLD, OA, admitted for RLL PNA, on Ceft/Doxy with improvement with breathing. Endorses significant improvement of SOB after duoneb treatments. Still requiring cont. O2 through NC 2L. PE GA NAD, alert and orientated, sitting in chair next to bed HEENT NC/AT, EOMI, no JVD Chest coarse b/l BS, no accessory M use CVS S1, S2+, sinus tachycardia Abd Soft, NT, ND Ext No LE edema 84 F h/o HTN, HLD, OA presents with RLL PNA with underlying hypoxemic respiratory distress requiring supplemental oxygen. RLL 2/2 CAP Cont. abx with Ceftriaxone, Doxycycline Flu negative, follow legionella neg., strep pending Cont. IV abx for CAP, NC O2 to achieve >90% O2, nebs PRN, pulmonary toileting Pulmonary evaluation: Dr. Cardenas Hyponatremia Likely 2/2 volume depletion, echo showing LV function normal BP improved after gentle hydration suggesting volume depletion CRE stable Hypertension Continue home Losartan when BP permits FEN -Gentle hydration -monitor chem PRN -Regular diet Prohylaxis -Lovenx 40mg subq daily Visit type - Emergency Visit Emergency Visit: Yes ED Registration Date: 10/01/19 Care time: The patient presented to the Emergency Department on the above date and was hospitalized for further evaluation of their emergent condition. - New Patient This patient is new to me today: No - Critical Care Critical Care patient: No - Discharge Referral Referred to [facility] Med P.C.: No
[2019-10-03] MEDS: ALBUTEROL SO4 2.5/IPRATROPIUM 0.5 INH SOL 3 ML VIAL.NEB. NEB SCH ×4 (07:42→20:20)
--- NOTE | 2019-10-03 10:16 | PN ---
Progress Note (short form) - Note Progress Note: Resting in NAD. Reports increase in cough, especially at night. No hemoptysis. Aide at the bedside. Intake & Output 09/30/19 10/01/19 10/02/19 10/03/19 23:59 23:59 23:59 23:59 Intake Total 1540 1994 Output Total 340 Balance 1540 1655 Weight 125 lb 6 oz Last Vital Signs Temp Pulse Resp BP Pulse Ox 98.4 F 88 20 153/74 97 10/03/19 07:11 10/03/19 07:11 10/03/19 07:11 10/03/19 07:11 10/02/19 21:00 Active Medications Acetaminophen (Tylenol -) 650 mg PO Q6H PRN PRN Reason: FEVER Albuterol Sulfate (Ventolin 0.083% Nebulizer Soln -) 1 amp NEB Q4H PRN PRN Reason: SHORT OF BREATH/WHEEZING Albuterol/Ipratropium (Duoneb -) 1 amp NEB RQID [facility] Last Admin: 10/03/19 07:42 Dose: 1 amp Budesonide/Formoterol Fumarate (Symbicort 160/4.5mcg -) 1 puff IH BID [facility] Last Admin: 10/02/19 21:51 Dose: 1 puff Cholecalciferol (Vitamin D3 -) 2,000 unit PO DAILY [facility] Last Admin: 10/02/19 09:52 Dose: 2,000 unit Docusate Sodium (Colace Liquid -) 100 mg PO DAILY PRN PRN Reason: CONSTIPATION Enoxaparin Sodium (Lovenox -) 40 mg SQ DAILY [facility] Last Admin: 10/02/19 09:52 Dose: 40 mg Folic Acid (Folic Acid -) 2 mg PO DAILY [facility] Last Admin: 10/02/19 09:52 Dose: 2 mg Ceftriaxone Sodium 1 gm/ (Dextrose) 50 mls @ 100 mls/hr IVPB DAILY [facility]; Protocol Last Admin: 10/02/19 09:52 Dose: 100 mls/hr Doxycycline Hyclate 100 mg/ (Dextrose) 100 mls @ 100 mls/hr IVPB BID [facility] Last Admin: 10/02/19 21:52 Dose: 100 mls/hr Losartan Potassium (Cozaar -) 50 mg PO DAILY [facility] Last Admin: 10/02/19 09:51 Dose: 50 mg Avtzj-7-Ytow Ethyl Esters (Lovaza -) 1 gm PO DAILY [facility] Last Admin: 10/02/19 09:52 Dose: 1 gm Polyethylene Glycol (Miralax (For Daily Use) -) 17 gm PO DAILY [facility] Last Admin: 10/02/19 17:36 Dose: 17 grams Senna (Senna -) 1 tab PO HS [facility] Last Admin: 10/02/19 21:43 Dose: 1 tab Constitutional: Yes: NAD Eyes: Yes: Conjunctiva Clear, EOM Intact HENT: Yes: Atraumatic, Normocephalic Neck: Yes: Supple, Trachea Midline Cardiovascular: Yes: Regular Rate and Rhythm Respiratory: Yes: Cough, Diminished, On Nasal O2, Rhonchi. No: Accessory Muscle Use, Rales, Stridor, Wheezes ...Inspection: Yes: WNL ...Clubbing: No Gastrointestinal: Yes: Normal Bowel Sounds, Soft Renal/: Yes: WNL Breast(s): Yes: WNL Musculoskeletal: Yes: WNL Extremities: Yes: WNL Edema: No Peripheral Pulses WNL: Yes Integumentary: Yes: WNL Neurological: Yes: WNL, Alert, Oriented ...Motor Strength: WNL Psychiatric: Yes: WNL, Alert, Oriented Labs: Problem List - Problems (1) Hypoxia Code(s): R09.02 - HYPOXEMIA (2) Leukocytosis Code(s): D72.829 - ELEVATED WHITE BLOOD CELL COUNT, UNSPECIFIED Qualifiers: Leukocytosis type: unspecified Qualified Code(s): D72.829 - Elevated white blood cell count, unspecified (3) On supplemental oxygen by nasal cannula Code(s): Z78.9 - OTHER SPECIFIED HEALTH STATUS (4) Pneumonia Code(s): J18.9 - PNEUMONIA, UNSPECIFIED ORGANISM Qualifiers: Pneumonia type: due to unspecified organism Laterality: right Lung location: lower lobe of lung Qualified Code(s): J18.9 - Pneumonia, unspecified organism (5) Shortness of breath Code(s): R06.02 - SHORTNESS OF BREATH (6) Asthma Code(s): J45.909 - UNSPECIFIED ASTHMA, UNCOMPLICATED (7) Thyroid nodule Code(s): E04.1 - NONTOXIC SINGLE THYROID NODULE Assessment/Plan ABX: Rocephin / Doxycycline O2 as needed BD TX No clear indication for systemic steroids VTE prophylaxis Follow sputum Symbicort BID Robitussin PRN Dr Cardenas Problem List - Problems (1) Hypoxia Code(s): R09.02 - HYPOXEMIA (2) Leukocytosis Code(s): D72.829 - ELEVATED WHITE BLOOD CELL COUNT, UNSPECIFIED Qualifiers: Leukocytosis type: unspecified Qualified Code(s): D72.829 - Elevated white blood cell count, unspecified (3) On supplemental oxygen by nasal cannula Code(s): Z78.9 - OTHER SPECIFIED HEALTH STATUS (4) Pneumonia Code(s): J18.9 - PNEUMONIA, UNSPECIFIED ORGANISM Qualifiers: Pneumonia type: due to unspecified organism Laterality: right Lung location: lower lobe of lung Qualified Code(s): J18.9 - Pneumonia, unspecified organism (5) Shortness of breath Code(s): R06.02 - SHORTNESS OF BREATH (6) Asthma Code(s): J45.909 - UNSPECIFIED ASTHMA, UNCOMPLICATED (7) Thyroid nodule Code(s): E04.1 - NONTOXIC SINGLE THYROID NODULE
[2019-10-03] MEDS ORDERED: DOXYCYCLINE HYCLATE 100 MG VIAL ONE ×2 (11:13→21:32)
[2019-10-03] MEDS ORDERED: DEXTROSE 5%-WATER 100 ML IVPB ONE ×2 (11:13→21:32)
[2019-10-03] MEDS ORDERED: DEXTROSE 5%-WATER - 50 ML IVPB ONE (11:14)
[2019-10-03] MEDS ORDERED: cefTRIAXone SODIUM 1 GM VIAL ONE (11:14)
[2019-10-03] MEDS: CHOLECALCIFEROL (VIT D3) 1,000 UNIT (25 MCG) TABLET PO SCH (11:20)
[2019-10-03] MEDS: LOSARTAN POTASSIUM 50 MG TABLET (FP) PO SCH (11:20)
[2019-10-03] MEDS: FOLIC ACID 1 MG TABLET (FP) PO SCH (11:20)
[2019-10-03] MEDS: OMEGA-3 ACID ETHYL ESTERS (FATTY-ACIDS) 1 GM CAPSULE (FP) PO SCH (11:21)
[2019-10-03] MEDS: ENOXAPARIN NA (PORCINE) 40 MG/0.4 ML DISP.SYRIN SQ SCH (11:21)
[2019-10-03] MEDS: CEFTRIAXONE 1 GM in DEXTROSE 5%-WATER - 50 ML IVPB SCH (11:21)
[2019-10-03] MEDS: DOXYCYCLINE INJECTION 100 MG in DEXTROSE 5%-WATER 100 ML IVPB SCH ×2 (11:21→21:34)
[2019-10-03] MEDS: BUDESONIDE/FORMETEROL FUMARATE 160/4.5 mcg INHALER IH SCH ×2 (11:22→21:07)
[2019-10-03] MEDS: guaiFENesin 200 MG/10 ML 10 ML UNIT-DOSE CUPS PO PRN ×2 (11:23→19:43)
[2019-10-03 13:55] VITALS: BMI 24.4
[2019-10-03] MEDS: POLYETHYLENE GLYCOL 3350 119 GM BTL PO SCH (14:07)
--- NOTE | 2019-10-03 20:08 | PN ---
Physical Exam: 84 F h/o HTN, HLD, OA, admitted for RLL PNA, on Ceft/Doxy with improvement with breathing. Still endorses occasional cough. Continuing cough suppressants with Duonebs and supplemental O2. PE GA NAD, alert and orientated, sitting in chair next to bed, occasionally repeating herself HEENT NC/AT, EOMI, no JVD Chest coarse b/l BS, no accessory M use CVS S1, S2+, sinus tachycardia Abd Soft, NT, ND Ext No LE edema Vital Signs - 24 hr 10/02/19 10/02/19 10/03/19 21:00 22:00 07:11 Temperature 98.3 F 98.4 F Pulse Rate 89 88 Respiratory 20 20 Rate Blood Pressure 125/75 153/74 O2 Sat by Pulse 97 Oximetry (%) 10/03/19 10/03/19 10/03/19 09:00 10:00 17:07 Temperature 98.3 F 99 F Pulse Rate 88 105 H Respiratory 18 20 Rate Blood Pressure 154/78 130/67 O2 Sat by Pulse 97 97 Oximetry (%) Current Medications Generic Name Dose Route Start Last Admin Trade Name Freq PRN Reason Stop Dose Admin Acetaminophen 650 mg 10/01/19 10:00 Tylenol - PO Q6H PRN FEVER Albuterol Sulfate 1 amp 10/02/19 12:05 Ventolin 0.083% Nebulizer Soln - NEB Q4H PRN SHORT OF BREATH/WHEEZING Albuterol/Ipratropium 1 amp 10/01/19 08:00 10/03/19 15:48 Duoneb - NEB 1 amp RQID [facility] Administration Budesonide/Formoterol Fumarate 1 puff 10/01/19 10:00 10/03/19 11:22 Symbicort 160/4.5mcg - IH 1 puff BID [facility] Administration Cholecalciferol 2,000 unit 10/02/19 10:00 10/03/19 11:20 Vitamin D3 - PO 2,000 unit DAILY [facility] Administration Docusate Sodium 100 mg 10/02/19 14:14 Colace Liquid - PO DAILY PRN CONSTIPATION Enoxaparin Sodium 40 mg 10/01/19 10:00 10/03/19 11:21 Lovenox - SQ 40 mg DAILY [facility] Administration Folic Acid 2 mg 10/02/19 10:00 10/03/19 11:20 Folic Acid - PO 2 mg DAILY [facility] Administration Guaifenesin 10 ml 10/03/19 10:16 10/03/19 19:43 Robitussin - PO 10 ml Q4H PRN Administration COUGH Ceftriaxone Sodium 1 gm/ 50 mls @ 100 mls/hr 10/02/19 10:00 10/03/19 11:21 Dextrose IVPB 100 mls/hr DAILY [facility] Administration Protocol Doxycycline Hyclate 100 mg/ 100 mls @ 100 mls/hr 10/01/19 22:00 10/03/19 11: 21 Dextrose IVPB 100 mls/hr BID [facility] Administration Losartan Potassium 50 mg 10/01/19 10:00 10/03/19 11:20 Cozaar - PO 50 mg DAILY [facility] Administration Yugde-5-Pycz Ethyl Esters 1 gm 10/02/19 10:00 10/03/19 11:21 Lovaza - PO 1 gm DAILY [facility] Administration Polyethylene Glycol 17 gm 10/02/19 16:45 10/03/19 14:07 Miralax (For Daily Use) - PO 17 grams DAILY [facility] Administration Senna 1 tab 10/02/19 22:00 10/02/19 21:43 Senna - PO 1 tab HS [facility] Administration 84 F h/o HTN, HLD, OA presents with RLL PNA with underlying hypoxemic respiratory distress requiring supplemental oxygen. RLL 2/2 CAP Cont. abx with Ceftriaxone, Doxycycline Flu negative, follow legionella neg., strep neg., cx unremarkable Cont. IV abx for CAP, NC O2 to achieve >90% O2, nebs PRN, pulmonary toileting Pulmonary evaluation: Dr. Cardenas ?Suspected dementia patient tends to repeat herself during exam, asking "is the nurse here yet? wheres the medication?" when she was just given meds likely due to underlying dementia, no focal neuro deficits exhibited, good strength UE and LE, as per son her memory waxes and wanes dementia workup as outpatient, frequent re-orientation, increase light exposure , place familiar objects around her to improve environment Hyponatremia Likely 2/2 volume depletion, echo showing LV function normal BP improved after gentle hydration suggesting volume depletion CRE stable Hypertension Continue home Losartan when BP permits FEN -Gentle hydration -monitor chem PRN -Regular diet Prohylaxis -Lovenox 40mg subq daily Visit type - Emergency Visit Emergency Visit: Yes ED Registration Date: 10/01/19 Care time: The patient presented to the Emergency Department on the above date and was hospitalized for further evaluation of their emergent condition. - New Patient This patient is new to me today: No - Critical Care Critical Care patient: No - Discharge Referral Referred to [facility] Med P.C.: No
[2019-10-03] MEDS: SENNOSIDES 8.6MG TABLET (FP) PO SCH (21:06)
[2019-10-04] MEDS: ALBUTEROL SO4 2.5/IPRATROPIUM 0.5 INH SOL 3 ML VIAL.NEB. NEB SCH ×4 (08:07→20:15)
--- NOTE | 2019-10-04 10:07 | PN ---
Progress Note (short form) - Note Progress Note: Resting in NAD in a chair. Still with cough, especially at night. No hemoptysis. Low grade temp early AM, 100. Intake & Output 10/01/19 10/02/19 10/03/19 10/04/19 23:59 23:59 23:59 23:59 Intake Total 1540 1995 150 Output Total 340 Balance 1540 1655 150 Weight 125 lb 6 oz 125 lb Last Vital Signs Temp Pulse Resp BP Pulse Ox 98.4 F 90 20 108/71 95 10/04/19 06:09 10/04/19 06:09 10/04/19 06:09 10/04/19 06:09 10/03/19 21:00 Active Medications Acetaminophen (Tylenol -) 650 mg PO Q6H PRN PRN Reason: FEVER Last Admin: 10/04/19 03:14 Dose: 650 mg Albuterol Sulfate (Ventolin 0.083% Nebulizer Soln -) 1 amp NEB Q4H PRN PRN Reason: SHORT OF BREATH/WHEEZING Albuterol/Ipratropium (Duoneb -) 1 amp NEB RQID [facility] Last Admin: 10/04/19 08:07 Dose: 1 amp Budesonide/Formoterol Fumarate (Symbicort 160/4.5mcg -) 1 puff IH BID [facility] Last Admin: 10/03/19 21:07 Dose: 1 puff Cholecalciferol (Vitamin D3 -) 2,000 unit PO DAILY [facility] Last Admin: 10/03/19 11:20 Dose: 2,000 unit Docusate Sodium (Colace Liquid -) 100 mg PO DAILY PRN PRN Reason: CONSTIPATION Enoxaparin Sodium (Lovenox -) 40 mg SQ DAILY [facility] Last Admin: 10/03/19 11:21 Dose: 40 mg Folic Acid (Folic Acid -) 2 mg PO DAILY [facility] Last Admin: 10/03/19 11:20 Dose: 2 mg Guaifenesin (Robitussin -) 10 ml PO Q4H PRN PRN Reason: COUGH Last Admin: 10/03/19 19:43 Dose: 10 ml Ceftriaxone Sodium 1 gm/ (Dextrose) 50 mls @ 100 mls/hr IVPB DAILY [facility]; Protocol Last Admin: 10/03/19 11:21 Dose: 100 mls/hr Doxycycline Hyclate 100 mg/ (Dextrose) 100 mls @ 100 mls/hr IVPB BID [facility] Last Admin: 10/03/19 21:34 Dose: 100 mls/hr Losartan Potassium (Cozaar -) 50 mg PO DAILY [facility] Last Admin: 10/03/19 11:20 Dose: 50 mg [id number]-[id number] Ethyl Esters (Lovaza -) 1 gm PO DAILY [facility] Last Admin: 10/03/19 11:21 Dose: 1 gm Polyethylene Glycol (Miralax (For Daily Use) -) 17 gm PO DAILY [facility] Last Admin: 10/03/19 14:07 Dose: 17 grams Senna (Senna -) 1 tab PO HS [facility] Last Admin: 10/03/19 21:06 Dose: 1 tab Constitutional: Yes: NAD Eyes: Yes: Conjunctiva Clear, EOM Intact HENT: Yes: Atraumatic, Normocephalic Neck: Yes: Supple, Trachea Midline Cardiovascular: Yes: Regular Rate and Rhythm Respiratory: Yes: Cough, Diminished, On Nasal O2, Rhonchi. No: Accessory Muscle Use, Rales, Stridor, Wheezes ...Inspection: Yes: WNL ...Clubbing: No Gastrointestinal: Yes: Normal Bowel Sounds, Soft Renal/: Yes: WNL Breast(s): Yes: WNL Musculoskeletal: Yes: WNL Extremities: Yes: WNL Edema: No Peripheral Pulses WNL: Yes Integumentary: Yes: WNL Neurological: Yes: WNL, Alert, Oriented ...Motor Strength: WNL Psychiatric: Yes: WNL, Alert, Oriented Labs: Problem List - Problems (1) Hypoxia Code(s): R09.02 - HYPOXEMIA (2) Leukocytosis Code(s): D72.829 - ELEVATED WHITE BLOOD CELL COUNT, UNSPECIFIED Qualifiers: Leukocytosis type: unspecified Qualified Code(s): D72.829 - Elevated white blood cell count, unspecified (3) On supplemental oxygen by nasal cannula Code(s): Z78.9 - OTHER SPECIFIED HEALTH STATUS (4) Pneumonia Code(s): J18.9 - PNEUMONIA, UNSPECIFIED ORGANISM Qualifiers: Pneumonia type: due to unspecified organism Laterality: right Lung location: lower lobe of lung Qualified Code(s): J18.9 - Pneumonia, unspecified organism (5) Shortness of breath Code(s): R06.02 - SHORTNESS OF BREATH (6) Asthma Code(s): J45.909 - UNSPECIFIED ASTHMA, UNCOMPLICATED (7) Thyroid nodule Code(s): E04.1 - NONTOXIC SINGLE THYROID NODULE Assessment/Plan ABX: Rocephin / Doxycycline: Can consider change to PO therapy in the next 24 hours O2 as needed BD TX VTE prophylaxis Symbicort BID Robitussin PRN Dr Cardenas Problem List - Problems (1) Hypoxia Code(s): R09.02 - HYPOXEMIA (2) Leukocytosis Code(s): D72.829 - ELEVATED WHITE BLOOD CELL COUNT, UNSPECIFIED Qualifiers: Leukocytosis type: unspecified Qualified Code(s): D72.829 - Elevated white blood cell count, unspecified (3) On supplemental oxygen by nasal cannula Code(s): Z78.9 - OTHER SPECIFIED HEALTH STATUS (4) Pneumonia Code(s): J18.9 - PNEUMONIA, UNSPECIFIED ORGANISM Qualifiers: Pneumonia type: due to unspecified organism Laterality: right Lung location: lower lobe of lung Qualified Code(s): J18.9 - Pneumonia, unspecified organism (5) Shortness of breath Code(s): R06.02 - SHORTNESS OF BREATH (6) Asthma Code(s): J45.909 - UNSPECIFIED ASTHMA, UNCOMPLICATED (7) Thyroid nodule Code(s): E04.1 - NONTOXIC SINGLE THYROID NODULE
[2019-10-04] MEDS ORDERED: DOXYCYCLINE HYCLATE 100 MG VIAL ONE ×2 (10:19→21:10)
[2019-10-04] MEDS ORDERED: DEXTROSE 5%-WATER 100 ML IVPB ONE ×2 (10:19→21:10)
[2019-10-04] MEDS ORDERED: DEXTROSE 5%-WATER - 50 ML IVPB ONE (10:21)
[2019-10-04] MEDS ORDERED: cefTRIAXone SODIUM 1 GM VIAL ONE (10:21)
[2019-10-04] MEDS: DOXYCYCLINE INJECTION 100 MG in DEXTROSE 5%-WATER 100 ML IVPB SCH ×2 (10:30→22:03)
[2019-10-04] MEDS: LOSARTAN POTASSIUM 50 MG TABLET (FP) PO SCH (10:31)
[2019-10-04] MEDS: OMEGA-3 ACID ETHYL ESTERS (FATTY-ACIDS) 1 GM CAPSULE (FP) PO SCH (10:31)
[2019-10-04] MEDS: CHOLECALCIFEROL (VIT D3) 1,000 UNIT (25 MCG) TABLET PO SCH (10:31)
[2019-10-04] MEDS: FOLIC ACID 1 MG TABLET (FP) PO SCH (10:31)
[2019-10-04] MEDS: ENOXAPARIN NA (PORCINE) 40 MG/0.4 ML DISP.SYRIN SQ SCH (10:41)
[2019-10-04] MEDS: BUDESONIDE/FORMETEROL FUMARATE 160/4.5 mcg INHALER IH SCH ×2 (10:44→22:08)
[2019-10-04] MEDS: CEFTRIAXONE 1 GM in DEXTROSE 5%-WATER - 50 ML IVPB SCH (10:45)
--- NOTE | 2019-10-04 11:46 | PN ---
Progress Note (short form) - Note Progress Note: Hospitalist Medicine Resting in bed. Per aid, is on 02 at home. Lives at [facility] and per aid, she is sent there to "assist when she is needed." Pt endorses improved breathing. Appears comfortable Vitals 10/04/19 06:09 Temperature 98.4 F Pulse Rate 90 Respiratory 20 Rate Blood Pressure 108/71 Physical Exam general: pleasant, on 2L NC 02 heent: NCAT, PERRLA neck: supple cardio: S1, S2 RRR. no r/m/g pulm: +scattered rhonchi b/l. no accessory m usage abdomen: NT, ND LE: 2+ pulses, no edema neuro: insurance coordinator 2-12 grossly intact Laboratory Tests 10/01/19 10/01/19 10/01/19 04:41 14:00 15:45 WBC Hgb Hct Plt Count Sodium Potassium Chloride Carbon Dioxide BUN Creatinine Est GFR (CKD-EPI)NonAf Random Glucose Total Protein Albumin Influenza A (Rapid) Negative Influenza B (Rapid) Negative RSV Rapid Negative Group A Strep Rapid Negative 10/02/19 10/02/19 06:50 06:50 WBC 7.5 Hgb 11.0 Hct 33.9 D Plt Count 205 D Sodium 132 L Potassium 3.7 Chloride 98 Carbon Dioxide 25 BUN 10.1 Creatinine 0.5 L Est GFR (CKD-EPI)NonAf 89.50 Random Glucose 81 Total Protein 5.0 L Albumin 2.3 L Influenza A (Rapid) Influenza B (Rapid) RSV Rapid Group A Strep Rapid Microbiology 10/02/19 02:26 Urine For Antigen Detection Legionella Antigen - Final 10/01/19 19:45 Sputum - Expectorated Gram Stain - Final 10/01/19 16:12 Throat Throat Culture - Final NO BETA HEMOLYTIC STREPTOCOCCI ISOLATED 10/02/19 02:26 Urine For Antigen Detection Streptococcus pneumoniae Antigen (M - Preliminary 10/01/19 19:45 Sputum - Expectorated Sputum Culture - Preliminary NORMAL RESPIRATORY [facility] Imaging 10/01/19: EKG: NSR, PAC's, rate 94bpm, qtc 475ms. 10/01/19: ECHO: suboptimal study, LVEF normal, mild concentric LVH, RV size and fnc normal. moderate valvular 10/01/19: CXR: new atelectatic changes at the R base, some peristent atelectasis, infiltrate at the L base 10/02/19: CXR: +PPM, large heart, unfolded aorta, degenerative changes, slight increase in bibasilar atelectatic changes and infiltrative changes with smoe minimal pleural fluid. L>>R. large heart Assessment/Plan 84 y/o F with h/o HTN, HLD, OA who presented with RLL PNA with underlying hypoxemic respiratory distress requiring supplemental oxygen. #Acute hypoxic RF 2/2 RLL PNA /CAP -c/w cef, doxy (10/02), will likely switch to PO tomorrow -flu, legionella, cx (-) -c/w duonebs RQID, nebs PRN, symbicort -Pulm: Dr. Cardenas #Suspected dementia -will need w/u as outpatient #HTN -c/w losartan #F/E/N does not require IVF at this time c/t follow lytes reg diet #PPX lovenox #Dispo cont'd monitoring on med-surg on IV abx, change to PO tomorrow; anticipate d/c 24hrs from [facility], will need to fill out paperwork pre and post tomorrow
[2019-10-04] MEDS: POLYETHYLENE GLYCOL 3350 119 GM BTL PO SCH (13:23)
--- NOTE | 2019-10-04 16:05 | PN ---
Teaching Attending Note Name of Resident: Janeth Hudson ATTENDING PHYSICIAN STATEMENT I saw and evaluated the patient. I reviewed the resident's note and discussed the case with the resident. I agree with the resident's findings and plan as documented. SUBJECTIVE: Patient has a cough, denies SOB. OBJECTIVE: Vital Signs Period Temp Pulse Resp BP Sys/Gregorio Pulse Ox Last 24 Hr 97.6 F-100.0 F 85-105 20-20 108-154/64-76 95-95 HEART: S1S2, RRR LUNGS: Scattered rhonchi ABDOMEN: Soft, non-tender, non-distended, normal BS EXTREMITIES: No edema Current Medications Generic Name Dose Route Start Last Admin Trade Name Freq PRN Reason Stop Dose Admin Acetaminophen 650 mg 10/01/19 10:00 10/04/19 03:14 Tylenol - PO 650 mg Q6H PRN Administration FEVER Albuterol Sulfate 1 amp 10/02/19 12:05 Ventolin 0.083% Nebulizer Soln - NEB Q4H PRN SHORT OF BREATH/WHEEZING Albuterol/Ipratropium 1 amp 10/01/19 08:00 10/04/19 12:10 Duoneb - NEB Not Given RQID [facility] Budesonide/Formoterol Fumarate 1 puff 10/01/19 10:00 10/04/19 10:44 Symbicort 160/4.5mcg - IH 1 puff BID [facility] Administration Cholecalciferol 2,000 unit 10/02/19 10:00 10/04/19 10:31 Vitamin D3 - PO 2,000 unit DAILY [facility] Administration Docusate Sodium 100 mg 10/02/19 14:14 Colace Liquid - PO DAILY PRN CONSTIPATION Enoxaparin Sodium 40 mg 10/01/19 10:00 10/04/19 10:41 Lovenox - SQ 40 mg DAILY [facility] Administration Folic Acid 2 mg 10/02/19 10:00 10/04/19 10:31 Folic Acid - PO 2 mg DAILY [facility] Administration Guaifenesin 10 ml 10/03/19 10:16 10/03/19 19:43 Robitussin - PO 10 ml Q4H PRN Administration COUGH Ceftriaxone Sodium 1 gm/ 50 mls @ 100 mls/hr 10/02/19 10:00 10/04/19 10:45 Dextrose IVPB 100 mls/hr DAILY [facility] Administration Protocol Doxycycline Hyclate 100 mg/ 100 mls @ 100 mls/hr 10/01/19 22:00 10/04/19 10: 30 Dextrose IVPB 100 mls/hr BID [facility] Administration Losartan Potassium 50 mg 10/01/19 10:00 10/04/19 10:31 Cozaar - PO 50 mg DAILY [facility] Administration Hqpql-7-[id number] Ethyl Esters 1 gm 10/02/19 10:00 10/04/19 10:31 Lovaza - PO 1 gm DAILY [facility] Administration Polyethylene Glycol 17 gm 10/02/19 16:45 10/04/19 13:23 Miralax (For Daily Use) - PO 17 grams DAILY [facility] Administration Senna 1 tab 10/02/19 22:00 10/03/19 21:06 Senna - PO 1 tab HS [facility] Administration ASSESSMENT AND PLAN: This is an 84 year old woman with a history of HTN, hyperlipidemia, OA who presented to the ED with SOB. 1. Acute on chronic hypoxic respiratory failure and sepsis secondary to pneumonia - Sepsis resolved - Continue ceftriaxone, doxycycline (day 4) - Oxygen to maintain saturation >90% - Continue Symbicort, DuoNeb 2. HTN - Continue Cozaar 3. Hyperlipidemia - Continue Lovaza 4. Possible dementia 5. Disposition - Expect discharge to [facility] tomorrow
[2019-10-04] MEDS: SENNOSIDES 8.6MG TABLET (FP) PO SCH (22:10)
[2019-10-05 07:56] LABS: BASO % 0.6 % (0-2.0); EOS % 0.1 % (0-4.5); HEMATOCRIT 38.6 % (32.4-45.2); HEMOGLOBIN 12.4 GM/dL (10.7-15.3); LYMPH % 10.4 % (8-40); MCH 25.3 pg (25.7-33.7); MCHC 32.2 g/dl (32.0-36.0); MEAN CELL VOLUME 78.5 fl (80-96); MEAN PLT VOLUME 7.5 fl (7.5-11.1); MONO % 16.7 % (3.8-10.2); NEUT % 72.2 % (42.8-82.8); PLATELET COUNT 236 K/MM3 (134-434); RBC 4.92 M/mm3 (3.60-5.2); WHITE BLOOD COUNT 4.5 K/mm3 (4.0-10.0)
[2019-10-05 08:06] LABS: BLOOD UREA NITROGEN 14.3 mg/dL (7-18); CALCIUM 8.7 mg/dL (8.5-10.1); CREATININE 0.5 mg/dL (0.55-1.3); MAGNESIUM 1.6 mg/dL (1.8-2.4); PHOSPHOROUS 3.6 mg/dL (2.5-4.9); POTASSIUM 3.7 mmol/L (3.5-5.1)
[2019-10-05] MEDS ORDERED: MAGNESIUM OXIDE 400 MG TABLET (FP) PO ONE (08:15)
[2019-10-05] MEDS: ALBUTEROL SO4 2.5/IPRATROPIUM 0.5 INH SOL 3 ML VIAL.NEB. NEB SCH ×4 (08:24→20:35)
[2019-10-05] MEDS ORDERED: DOXYCYCLINE HYCLATE 100 MG VIAL ONE ×2 (08:55→21:18)
[2019-10-05] MEDS ORDERED: DEXTROSE 5%-WATER 100 ML IVPB ONE ×2 (08:55→21:19)
[2019-10-05] MEDS ORDERED: DEXTROSE 5%-WATER - 50 ML IVPB ONE (08:56)
[2019-10-05] MEDS ORDERED: cefTRIAXone SODIUM 1 GM VIAL ONE (08:56)
[2019-10-05] MEDS: CHOLECALCIFEROL (VIT D3) 1,000 UNIT (25 MCG) TABLET PO SCH (09:43)
[2019-10-05] MEDS: guaiFENesin 200 MG/10 ML 10 ML UNIT-DOSE CUPS PO PRN (09:43)
[2019-10-05] MEDS: DOXYCYCLINE INJECTION 100 MG in DEXTROSE 5%-WATER 100 ML IVPB SCH ×2 (09:43→22:19)
[2019-10-05] MEDS: FOLIC ACID 1 MG TABLET (FP) PO SCH (09:43)
[2019-10-05] MEDS: OMEGA-3 ACID ETHYL ESTERS (FATTY-ACIDS) 1 GM CAPSULE (FP) PO SCH (09:43)
[2019-10-05] MEDS: CEFTRIAXONE 1 GM in DEXTROSE 5%-WATER - 50 ML IVPB SCH (09:43)
[2019-10-05] MEDS: POLYETHYLENE GLYCOL 3350 119 GM BTL PO SCH (09:44)
[2019-10-05] MEDS: ENOXAPARIN NA (PORCINE) 40 MG/0.4 ML DISP.SYRIN SQ SCH (09:44)
[2019-10-05] MEDS: BUDESONIDE/FORMETEROL FUMARATE 160/4.5 mcg INHALER IH SCH ×2 (09:44→22:19)
[2019-10-05] MEDS: LOSARTAN POTASSIUM 50 MG TABLET (FP) PO SCH (09:44)
--- NOTE | 2019-10-05 10:01 | PN ---
Progress Note (short form) - Note Progress Note: NAD in a chair on NC O2. Still with cough, especially at night. No hemoptysis. Afebrile. Intake & Output 10/02/19 10/03/19 10/04/19 10/05/19 23:59 23:59 23:59 23:59 Intake Total 5843 424 0877 250 Output Total 340 Balance 0778 831 1910 250 Weight 125 lb Last Vital Signs Temp Pulse Resp BP Pulse Ox 98.0 F 87 18 129/66 98 10/05/19 09:39 10/05/19 09:39 10/05/19 09:39 10/05/19 09:39 10/04/19 21:00 Active Medications Acetaminophen (Tylenol -) 650 mg PO Q6H PRN PRN Reason: FEVER Last Admin: 10/04/19 03:14 Dose: 650 mg Albuterol Sulfate (Ventolin 0.083% Nebulizer Soln -) 1 amp NEB Q4H PRN PRN Reason: SHORT OF BREATH/WHEEZING Albuterol/Ipratropium (Duoneb -) [address] [facility] Last Admin: 10/05/19 08:24 Dose: 1 amp Budesonide/Formoterol Fumarate (Symbicort 160/4.5mcg -) [address] [facility] Last Admin: 10/05/19 09:44 Dose: 1 puff Cholecalciferol (Vitamin D3 -) 2,[address] [facility] Last Admin: 10/05/19 09:43 Dose: 2,000 unit Docusate Sodium (Colace Liquid -) 100 mg PO DAILY PRN PRN Reason: CONSTIPATION Enoxaparin Sodium (Lovenox -) [address] [facility] Last Admin: 10/05/19 09:44 Dose: 40 mg Folic Acid (Folic Acid -) [address] [facility] Last Admin: 10/05/19 09:43 Dose: 2 mg Guaifenesin (Robitussin -) 10 ml PO Q4H PRN PRN Reason: COUGH Last Admin: 10/05/19 09:43 Dose: 10 ml Ceftriaxone Sodium 1 gm/ (Dextrose) 50 mls @ 100 mls/hr IVPB DAILY [facility]; Protocol Last Admin: 10/05/19 09:43 Dose: 100 mls/hr Doxycycline Hyclate 100 mg/ (Dextrose) 100 mls @ 100 mls/hr IVPB BID [facility] Last Admin: 10/05/19 09:43 Dose: 100 mls/hr Losartan Potassium (Cozaar -) [address] [facility] Last Admin: 10/05/19 09:44 Dose: 50 mg [id number]-[id number] Ethyl Esters (Lovaza -) [address] [facility] Last Admin: 10/05/19 09:43 Dose: 1 gm Polyethylene Glycol (Miralax (For Daily Use) -) [address] [facility] Last Admin: 10/05/19 09:44 Dose: 17 grams Senna (Senna -) [address] [facility] Last Admin: 10/04/19 22:10 Dose: 1 tab Constitutional: Yes: NAD Eyes: Yes: Conjunctiva Clear, EOM Intact HENT: Yes: Atraumatic, Normocephalic Neck: Yes: Supple, Trachea Midline Cardiovascular: Yes: Regular Rate and Rhythm Respiratory: Yes: Cough, Diminished, On Nasal O2, Rhonchi. No: Accessory Muscle Use, Rales, Stridor, Wheezes ...Inspection: Yes: WNL ...Clubbing: No Gastrointestinal: Yes: Normal Bowel Sounds, Soft Renal/: Yes: WNL Breast(s): Yes: WNL Musculoskeletal: Yes: WNL Extremities: Yes: WNL Edema: No Peripheral Pulses WNL: Yes Integumentary: Yes: WNL Neurological: Yes: WNL, Alert, Oriented ...Motor Strength: WNL Psychiatric: Yes: WNL, Alert, Oriented Labs: Laboratory Results - last 24 hr 10/05/19 10/05/19 07:10 07:10 WBC 4.5 RBC 4.92 Hgb 12.4 Hct 38.6 MCV 78.5 L MCH 25.3 L MCHC 32.2 RDW 15.0 Plt Count 236 MPV 7.5 Absolute Neuts (auto) 3.3 Neutrophils % 72.2 D Lymphocytes % 10.4 D Monocytes % 16.7 H D Eosinophils % 0.1 D Basophils % 0.6 Nucleated RBC % 0 Sodium 131 L Potassium 3.7 Chloride 95 L Carbon Dioxide 30 Anion Gap 6 L BUN 14.3 Creatinine 0.5 L Est GFR (CKD-EPI)AfAm 103.73 Est GFR (CKD-EPI)NonAf 89.50 Random Glucose 104 Calcium 8.7 Phosphorus 3.6 Magnesium 1.6 L Problem List - Problems (1) Hypoxia Code(s): R09.02 - HYPOXEMIA (2) Leukocytosis Code(s): D72.829 - ELEVATED WHITE BLOOD CELL COUNT, UNSPECIFIED Qualifiers: Leukocytosis type: unspecified Qualified Code(s): D72.829 - Elevated white blood cell count, unspecified (3) On supplemental oxygen by nasal cannula Code(s): Z78.9 - OTHER SPECIFIED HEALTH STATUS (4) Pneumonia Code(s): J18.9 - PNEUMONIA, UNSPECIFIED ORGANISM Qualifiers: Pneumonia type: due to unspecified organism Laterality: right Lung location: lower lobe of lung Qualified Code(s): J18.9 - Pneumonia, unspecified organism (5) Shortness of breath Code(s): R06.02 - SHORTNESS OF BREATH (6) Asthma Code(s): J45.909 - UNSPECIFIED ASTHMA, UNCOMPLICATED (7) Thyroid nodule Code(s): E04.1 - NONTOXIC SINGLE THYROID NODULE Assessment/Plan ABX: Rocephin / Doxycycline: Can consider change to PO therapy: No guidance from cultures, can place on Augmentin 500mg BID to complete 10 days in total. O2 as needed BD TX VTE prophylaxis Symbicort BID Robitussin PRN DC planning Dr Cardenas Problem List - Problems (1) Hypoxia Code(s): R09.02 - HYPOXEMIA (2) Leukocytosis Code(s): D72.829 - ELEVATED WHITE BLOOD CELL COUNT, UNSPECIFIED Qualifiers: Leukocytosis type: unspecified Qualified Code(s): D72.829 - Elevated white blood cell count, unspecified (3) On supplemental oxygen by nasal cannula Code(s): Z78.9 - OTHER SPECIFIED HEALTH STATUS (4) Pneumonia Code(s): J18.9 - PNEUMONIA, UNSPECIFIED ORGANISM Qualifiers: Pneumonia type: due to unspecified organism Laterality: right Lung location: lower lobe of lung Qualified Code(s): J18.9 - Pneumonia, unspecified organism (5) Shortness of breath Code(s): R06.02 - SHORTNESS OF BREATH (6) Asthma Code(s): J45.909 - UNSPECIFIED ASTHMA, UNCOMPLICATED (7) Thyroid nodule Code(s): E04.1 - NONTOXIC SINGLE THYROID NODULE
--- NOTE | 2019-10-05 16:43 | PN ---
Progress Note (short form) - Note Progress Note: Hospitalist Medicine OOB in chair, on 3L NC 02. with SHEIKH. Pre and post completed; requiring 3L on d/ c. Paperwork for home 02 and [facility] filled out Message left for pt's sonRuy 10/05/19 14:00 Temperature 97.3 F L Pulse Rate 85 Respiratory 18 Rate Blood Pressure 123/60 Physical Exam general: pleasant, on 3L NC 02 heent: NCAT, PERRLA neck: supple cardio: S1, S2 RRR. no r/m/g pulm: +scattered rhonchi b/l. congestion, rales. 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 Laboratory Tests 10/05/19 10/05/19 07:10 07:10 WBC 4.5 Hgb 12.4 Hct 38.6 Plt Count 236 Sodium 131 L Potassium 3.7 Chloride 95 L Carbon Dioxide 30 Anion Gap 6 L BUN 14.3 Creatinine 0.5 L Calcium 8.7 Phosphorus 3.6 Magnesium 1.6 L Microbiology 10/02/19 02:26 Urine For Antigen Detection Legionella Antigen - Final 10/01/19 19:45 Sputum - Expectorated Gram Stain - Final 10/01/19 16:12 Throat Throat Culture - Final NO BETA HEMOLYTIC STREPTOCOCCI ISOLATED 10/02/19 02:26 Urine For Antigen Detection Streptococcus pneumoniae Antigen (M - Preliminary 10/01/19 19:45 Sputum - Expectorated Sputum Culture - Preliminary NORMAL RESPIRATORY [facility] Imaging 10/01/19: EKG: NSR, PAC's, rate 94bpm, qtc 475ms. 10/01/19: ECHO: suboptimal study, LVEF normal, mild concentric LVH, RV size and fnc normal. moderate valvular 10/01/19: CXR: new atelectatic changes at the R base, some peristent atelectasis, infiltrate at the L base 10/02/19: CXR: +PPM, large heart, unfolded aorta, degenerative changes, slight increase in bibasilar atelectatic changes and infiltrative changes with smoe minimal pleural fluid. L>>R. large heart Assessment/Plan 84 y/o F with h/o HTN, HLD, OA who presented with RLL PNA with underlying hypoxemic respiratory distress requiring supplemental oxygen. #Acute hypoxic RF 2/2 RLL PNA /CAP -c/w cef, doxy (10/02) for now, will switch to PO on d/c tomorrow (augmentin 500 BID x 10day total course) -flu, legionella, cx (-) -c/w duonebs RQID, nebs PRN, symbicort -will need 3L 02 on d/c, d/w SW -Pulm: Dr. Cardenas #Suspected dementia -will need w/u as outpatient #HTN -c/w losartan #PPM interrogation -per son, and nursing, pt needs interrogation of PPM and has appt tomorrow -requesting cardio consult -cardio: Dr. Bacon #F/E/N does not require IVF at this time c/t follow lytes reg diet #PPX lovenox #Dispo cont'd monitoring on med-surg on IV abx, change to PO tomorrow; anticipate d/c 24hrs if 02 set up from [facility], paperwork filled out
--- NOTE | 2019-10-05 17:41 | PN ---
Teaching Attending Note Name of Resident: Janeth Hudson ATTENDING PHYSICIAN STATEMENT I saw and evaluated the patient. I reviewed the resident's note and discussed the case with the resident. I agree with the resident's findings and plan as documented. SUBJECTIVE: Patient feels SOB with exertion. OBJECTIVE: Vital Signs Period Temp Pulse Resp BP Sys/Gregorio Pulse Ox Last 24 Hr 97.3 F-98.7 F 82-92 18-20 123-145/60-66 96-98 HEART: S1S2, RRR LUNGS: Scattered rhonchi ABDOMEN: Soft, non-tender, non-distended, normal BS EXTREMITIES: No edema Laboratory Results - last 24 hr 10/05/19 10/05/19 07:10 07:10 WBC 4.5 RBC 4.92 Hgb 12.4 Hct 38.6 MCV 78.5 L MCH 25.3 L MCHC 32.2 RDW 15.0 Plt Count 236 MPV 7.5 Absolute Neuts (auto) 3.3 Neutrophils % 72.2 D Lymphocytes % 10.4 D Monocytes % 16.7 H D Eosinophils % 0.1 D Basophils % 0.6 Nucleated RBC % 0 Sodium 131 L Potassium 3.7 Chloride 95 L Carbon Dioxide 30 Anion Gap 6 L BUN 14.3 Creatinine 0.5 L Est GFR (CKD-EPI)AfAm 103.73 Est GFR (CKD-EPI)NonAf 89.50 Random Glucose 104 Calcium 8.7 Phosphorus 3.6 Magnesium 1.6 L Current Medications Generic Name Dose Route Start Last Admin Trade Name Freq PRN Reason Stop Dose Admin Acetaminophen 650 mg 10/01/19 10:00 10/04/19 03:14 Tylenol - PO 650 mg Q6H PRN Administration FEVER Albuterol Sulfate 1 amp 10/02/19 12:05 Ventolin 0.083% Nebulizer Soln - NEB Q4H PRN SHORT OF BREATH/WHEEZING Albuterol/Ipratropium 1 amp 10/01/19 08:00 10/05/19 15:21 Duoneb - NEB 1 amp RQID [facility] Administration Budesonide/Formoterol Fumarate 1 puff 10/01/19 10:00 10/05/19 09:44 Symbicort 160/4.5mcg - IH 1 puff BID [facility] Administration Cholecalciferol 2,000 unit 10/02/19 10:00 10/05/19 09:43 Vitamin D3 - PO 2,000 unit DAILY [facility] Administration Docusate Sodium 100 mg 10/02/19 14:14 Colace Liquid - PO DAILY PRN CONSTIPATION Enoxaparin Sodium 40 mg 10/01/19 10:00 10/05/19 09:44 Lovenox - SQ 40 mg DAILY [facility] Administration Folic Acid 2 mg 10/02/19 10:00 10/05/19 09:43 Folic Acid - PO 2 mg DAILY [facility] Administration Guaifenesin 10 ml 10/03/19 10:16 10/05/19 09:43 Robitussin - PO 10 ml Q4H PRN Administration COUGH Ceftriaxone Sodium 1 gm/ 50 mls @ 100 mls/hr 10/02/19 10:00 10/05/19 09:43 Dextrose IVPB 100 mls/hr DAILY [facility] Administration Protocol Doxycycline Hyclate 100 mg/ 100 mls @ 100 mls/hr 10/01/19 22:00 10/05/19 09: 43 Dextrose IVPB 100 mls/hr BID [facility] Administration Losartan Potassium 50 mg 10/01/19 10:00 10/05/19 09:44 Cozaar - PO 50 mg DAILY [facility] Administration Ggkzb-5-Mikd Ethyl Esters 1 gm 10/02/19 10:00 10/05/19 09:43 Lovaza - PO 1 gm DAILY [facility] Administration Polyethylene Glycol 17 gm 10/02/19 16:45 10/05/19 09:44 Miralax (For Daily Use) - PO 17 grams DAILY [facility] Administration Senna 1 tab 10/02/19 22:00 10/04/19 22:10 Senna - PO 1 tab HS [facility] Administration ASSESSMENT AND PLAN: This is an 84 year old woman with a history of HTN, hyperlipidemia, OA who presented to the ED with SOB. 1. Acute on chronic hypoxic respiratory failure and sepsis secondary to pneumonia - Sepsis resolved - Continue ceftriaxone, doxycycline (day 5) - Oxygen to maintain saturation >90% - will need oxygen at discharge - Continue Symbicort, DuoNeb 2. HTN - Continue Cozaar 3. Hyperlipidemia - Continue Lovaza 4. Possible dementia 5. Disposition - Plan for discharge to [facility] once oxygen arranged
[2019-10-05] MEDS: SENNOSIDES 8.6MG TABLET (FP) PO SCH (22:19)
[2019-10-06] MEDS: ALBUTEROL SO4 2.5/IPRATROPIUM 0.5 INH SOL 3 ML VIAL.NEB. NEB SCH ×2 (07:35→11:10)
--- NOTE | 2019-10-06 08:06 | PN ---
Progress Note (short form) - Note Progress Note: NAD in bed on NC O2. Still with cough, but better. Feels weak. No hemoptysis. Afebrile. Intake & Output 10/03/19 10/04/19 10/05/19 10/06/19 23:59 23:59 23:59 23:59 Intake Total 150 1200 450 0 Balance 150 1200 450 0 Weight 125 lb Last Vital Signs Temp Pulse Resp BP Pulse Ox 98.2 F 79 20 149/68 96 10/06/19 06:14 10/06/19 06:14 10/06/19 06:14 10/06/19 06:14 10/05/19 21:00 Active Medications Acetaminophen (Tylenol -) 650 mg PO Q6H PRN PRN Reason: FEVER Last Admin: 10/04/19 03:14 Dose: 650 mg Albuterol Sulfate (Ventolin 0.083% Nebulizer Soln -) 1 amp NEB Q4H PRN PRN Reason: SHORT OF BREATH/WHEEZING Albuterol/Ipratropium (Duoneb -) 1 amp NEB RQID [facility] Last Admin: 10/05/19 20:35 Dose: 1 amp Budesonide/Formoterol Fumarate (Symbicort 160/4.5mcg -) 1 puff IH BID [facility] Last Admin: 10/05/19 22:19 Dose: 1 puff Cholecalciferol (Vitamin D3 -) 2,000 unit PO DAILY [facility] Last Admin: 10/05/19 09:43 Dose: 2,000 unit Docusate Sodium (Colace Liquid -) 100 mg PO DAILY PRN PRN Reason: CONSTIPATION Enoxaparin Sodium (Lovenox -) 40 mg SQ DAILY [facility] Last Admin: 10/05/19 09:44 Dose: 40 mg Folic Acid (Folic Acid -) 2 mg PO DAILY [facility] Last Admin: 10/05/19 09:43 Dose: 2 mg Guaifenesin (Robitussin -) 10 ml PO Q4H PRN PRN Reason: COUGH Last Admin: 10/05/19 09:43 Dose: 10 ml Ceftriaxone Sodium 1 gm/ (Dextrose) 50 mls @ 100 mls/hr IVPB DAILY [facility]; Protocol Last Admin: 10/05/19 09:43 Dose: 100 mls/hr Doxycycline Hyclate 100 mg/ (Dextrose) 100 mls @ 100 mls/hr IVPB BID [facility] Last Admin: 10/05/19 22:19 Dose: 100 mls/hr Losartan Potassium (Cozaar -) 50 mg PO DAILY [facility] Last Admin: 10/05/19 09:44 Dose: 50 mg [id number] Ethyl Esters (Lovaza -) 1 gm PO DAILY [facility] Last Admin: 10/05/19 09:43 Dose: 1 gm Polyethylene Glycol (Miralax (For Daily Use) -) 17 gm PO DAILY [facility] Last Admin: 10/05/19 09:44 Dose: 17 grams Senna (Senna -) 1 tab PO HS [facility] Last Admin: 10/05/19 22:19 Dose: 1 tab Constitutional: Yes: NAD Eyes: Yes: Conjunctiva Clear, EOM Intact HENT: Yes: Atraumatic, Normocephalic Neck: Yes: Supple, Trachea Midline Cardiovascular: Yes: Regular Rate and Rhythm Respiratory: Yes: Cough, Diminished, On Nasal O2, Rhonchi. No: Accessory Muscle Use, Rales, Stridor, Wheezes ...Inspection: Yes: WNL ...Clubbing: No Gastrointestinal: Yes: Normal Bowel Sounds, Soft Renal/: Yes: WNL Breast(s): Yes: WNL Musculoskeletal: Yes: WNL Extremities: Yes: WNL Edema: No Peripheral Pulses WNL: Yes Integumentary: Yes: WNL Neurological: Yes: WNL, Alert, Oriented ...Motor Strength: WNL Psychiatric: Yes: WNL, Alert, Oriented Labs: Laboratory Results - last 24 hr 10/05/19 10/05/19 07:10 07:10 WBC 4.5 RBC 4.92 Hgb 12.4 Hct 38.6 MCV 78.5 L MCH 25.3 L MCHC 32.2 RDW 15.0 Plt Count 236 MPV 7.5 Absolute Neuts (auto) 3.3 Neutrophils % 72.2 D Lymphocytes % 10.4 D Monocytes % 16.7 H D Eosinophils % 0.1 D Basophils % 0.6 Nucleated RBC % 0 Sodium 131 L Potassium 3.7 Chloride 95 L Carbon Dioxide 30 Anion Gap 6 L BUN 14.3 Creatinine 0.5 L Est GFR (CKD-EPI)AfAm 103.73 Est GFR (CKD-EPI)NonAf 89.50 Random Glucose 104 Calcium 8.7 Phosphorus 3.6 Magnesium 1.6 L Problem List - Problems (1) Hypoxia Code(s): R09.02 - HYPOXEMIA (2) Leukocytosis Code(s): D72.829 - ELEVATED WHITE BLOOD CELL COUNT, UNSPECIFIED Qualifiers: Leukocytosis type: unspecified Qualified Code(s): D72.829 - Elevated white blood cell count, unspecified (3) On supplemental oxygen by nasal cannula Code(s): Z78.9 - OTHER SPECIFIED HEALTH STATUS (4) Pneumonia Code(s): J18.9 - PNEUMONIA, UNSPECIFIED ORGANISM Qualifiers: Pneumonia type: due to unspecified organism Laterality: right Lung location: lower lobe of lung Qualified Code(s): J18.9 - Pneumonia, unspecified organism (5) Shortness of breath Code(s): R06.02 - SHORTNESS OF BREATH (6) Asthma Code(s): J45.909 - UNSPECIFIED ASTHMA, UNCOMPLICATED (7) Thyroid nodule Code(s): E04.1 - NONTOXIC SINGLE THYROID NODULE Assessment/Plan ABX: Rocephin / Doxycycline: Can consider change to PO therapy: No guidance from cultures, can place on Augmentin 500mg BID to complete 10 days in total. O2 as needed BD TX VTE prophylaxis Symbicort BID Robitussin PRN DC planning Dr Cardenas Problem List - Problems (1) Hypoxia Code(s): R09.02 - HYPOXEMIA (2) Leukocytosis Code(s): D72.829 - ELEVATED WHITE BLOOD CELL COUNT, UNSPECIFIED Qualifiers: Leukocytosis type: unspecified Qualified Code(s): D72.829 - Elevated white blood cell count, unspecified (3) On supplemental oxygen by nasal cannula Code(s): Z78.9 - OTHER SPECIFIED HEALTH STATUS (4) Pneumonia Code(s): J18.9 - PNEUMONIA, UNSPECIFIED ORGANISM Qualifiers: Pneumonia type: due to unspecified organism Laterality: right Lung location: lower lobe of lung Qualified Code(s): J18.9 - Pneumonia, unspecified organism (5) Shortness of breath Code(s): R06.02 - SHORTNESS OF BREATH (6) Asthma Code(s): J45.909 - UNSPECIFIED ASTHMA, UNCOMPLICATED (7) Thyroid nodule Code(s): E04.1 - NONTOXIC SINGLE THYROID NODULE
[2019-10-06 08:24] LABS: BASO % 0.6 % (0-2.0); EOS % 0.8 % (0-4.5); HEMATOCRIT 37.8 % (32.4-45.2); HEMOGLOBIN 12.3 GM/dL (10.7-15.3); LYMPH % 11.4 % (8-40); MCH 25.2 pg (25.7-33.7); MCHC 32.5 g/dl (32.0-36.0); MEAN CELL VOLUME 77.6 fl (80-96); MEAN PLT VOLUME 7.5 fl (7.5-11.1); MONO % 14.8 % (3.8-10.2); NEUT % 72.4 % (42.8-82.8); PLATELET COUNT 212 K/MM3 (134-434); RBC 4.87 M/mm3 (3.60-5.2); WHITE BLOOD COUNT 5.6 K/mm3 (4.0-10.0)
[2019-10-06 08:46] LABS: BLOOD UREA NITROGEN 17.7 mg/dL (7-18); CREATININE 0.5 mg/dL (0.55-1.3); MAGNESIUM 1.7 mg/dL (1.8-2.4)
[2019-10-06] MEDS ORDERED: MAGNESIUM OXIDE 400 MG TABLET (FP) PO ONE (10:33)
[2019-10-06] MEDS ORDERED: DOXYCYCLINE HYCLATE 100 MG VIAL ONE (10:43)
[2019-10-06] MEDS ORDERED: DEXTROSE 5%-WATER - 50 ML IVPB ONE (10:44)
[2019-10-06] MEDS ORDERED: cefTRIAXone SODIUM 1 GM VIAL ONE (10:44)
[2019-10-06] MEDS ORDERED: DEXTROSE 5%-WATER 100 ML IVPB ONE (10:44)
[2019-10-06] MEDS: DOXYCYCLINE INJECTION 100 MG in DEXTROSE 5%-WATER 100 ML IVPB SCH (10:48)
[2019-10-06] MEDS: OMEGA-3 ACID ETHYL ESTERS (FATTY-ACIDS) 1 GM CAPSULE (FP) PO SCH (10:52)
[2019-10-06] MEDS: FOLIC ACID 1 MG TABLET (FP) PO SCH (10:52)
[2019-10-06] MEDS: CEFTRIAXONE 1 GM in DEXTROSE 5%-WATER - 50 ML IVPB SCH (10:53)
[2019-10-06] MEDS: CHOLECALCIFEROL (VIT D3) 1,000 UNIT (25 MCG) TABLET PO SCH (10:54)
[2019-10-06] MEDS: LOSARTAN POTASSIUM 50 MG TABLET (FP) PO SCH (10:55)
[2019-10-06] MEDS: POLYETHYLENE GLYCOL 3350 119 GM BTL PO SCH (10:56)
[2019-10-06] MEDS: ENOXAPARIN NA (PORCINE) 40 MG/0.4 ML DISP.SYRIN SQ SCH (10:56)
--- NOTE | 2019-10-06 10:58 | CON.CARD ---
Consult Consult Specialty:: Cardiology Referred by:: Medicine Reason for Consultation:: history of ppm - History of Present Illness Chief Complaint: shortness of breath History of Present Illness: 84F h/o HTN, HLD, arthritis p/w dyspnea for the last month, also with cough. Admitted and treated for PNA, has been afebrile, dyspnea improving. Sees me for cardio, had planned PPM interrogation today ([employer]). No chest pain, palps, edema, orthopnea. - Past Medical History Pulmonary: Yes: Asthma, Bronchitis, Pneumonia. No: Cancer, COPD, O2 Dependent, Previously Intubated, Pulmonary Embolus, Pulmonary Fibrosis, Sleep Apnea - Alcohol/Substance Use Hx Alcohol Use: No - Smoking History Smoking history: Never smoked Have you smoked in the past 12 months: No Home Medications - Allergies Allergies/Adverse Reactions: Allergies Allergy/AdvReac Type Severity Reaction Status Date / Time pollen extracts Allergy Unknown Verified 10/01/19 03:10 leflunomide [From [facility]] Allergy Verified 10/01/19 03:10 - Home Medications Home Medications: Ambulatory Orders Folic Acid 2 mg PO DAILY 07/25/19 Losartan Potassium 50 mg PO DAILY 07/25/19 [place]-3 Fatty Acids [[place]-3] 1,000 mg PO DAILY 07/25/19 Ubidecarenone [Coenzyme Q10] 100 mg PO ASDIR 08/17/19 Acetaminophen 500 mg PO TID PRN 09/06/19 Albuterol 0.083% Nebulizer Deborah [Ventolin 0.083% Nebulizer Soln -] 1 neb NEB BID 09/06/19 Cholecalciferol (Vitamin D3) [Vitamin D3] 2,000 unit PO DAILY 09/06/19 Polyethylene Glycol 3350 17 gm PO DAILY PRN 09/06/19 Albuterol Sulfate Inhaler - [Ventolin HFA Inhaler -] 2 inh PO Q6H 10/01/19 Budesonide/Formeterol Fumarate [SYMBICORT 160/4.5mcg -] 1 puff IH BID #2 inhaler 10/05/19 Guaifenesin [Robitussin -] 10 ml PO Q4H PRN #1 bottle 10/05/19 Amoxicillin/Potassium Clav [Augmentin 500-125 Tablet] 1 each PO BID #10 tablet 10/06/19 Family Medical History Family History: Unremarkable Review of Systems - Review of Systems Constitutional: reports: No Symptoms Eyes: reports: No Symptoms HENT: reports: No Symptoms Neck: reports: No Symptoms Cardiovascular: reports: No Symptoms Respiratory: reports: No Symptoms Gastrointestinal: reports: No Symptoms Genitourinary: reports: No Symptoms Musculoskeletal: reports: No Symptoms Integumentary: reports: No Symptoms Neurological: reports: No Symptoms Endocrine: reports: No Symptoms Hematology/Lymphatic: reports: No Symptoms Psychiatric: reports: No Symptoms Vital Signs: Vital Signs Temperature 98.2 F 10/06/19 06:14 Pulse Rate 79 10/06/19 06:14 Respiratory Rate 10/06/19 06:14 Blood Pressure 149/68 10/06/19 06:14 O2 Sat by Pulse Oximetry (%) 96 10/05/19 21:00 Constitutional: Yes: Well Nourished, No Distress, Calm Eyes: Yes: Conjunctiva Clear, EOM Intact HENT: Yes: Atraumatic, Normocephalic Neck: Yes: Supple, Trachea Midline Respiratory: Yes: Regular, CTA Bilaterally Gastrointestinal: Yes: Normal Bowel Sounds, Soft Cardiovascular: Yes: Regular Rate and Rhythm JVD: No Heart Sounds: Yes: S1, S2 Extremities: No: Cold Edema: No Peripheral Pulses WNL: No Integumentary: No: Jaundice Neurological: Yes: Alert, Oriented Psychiatric: No: Agitated - Other Data Labs, Other Data: CBC, BMP 10/06/19 07:55 10/06/19 07:55 Assessment/Plan EKG: sinus with PACs, RBBB CXR: R base atelectasis, infiltrate L base echo 09/2019 tds, nl LV function, mild conc LVH, nl RV, mod PNA, SOB - abx per primary, has been afebrile Patient is an 84 year old female with history of hypertension, hyperlipidemia, arthritis, presents with complaint of shortness of breath. 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 No signs or symptoms of pacemaker malfunction HLD - cont statin asthma - manage per primary aortic stenosis - moderate on echo here - outpatient follow up stable for dc from cardiac perspective
[2019-10-06] MEDS: BUDESONIDE/FORMETEROL FUMARATE 160/4.5 mcg INHALER IH SCH (10:59)
[2019-10-06] MEDS: guaiFENesin 200 MG/10 ML 10 ML UNIT-DOSE CUPS PO PRN (11:01)
[2019-10-06 11:25] VITALS: BP 155/75; PULSE 80; TEMP 98
--- NOTE | 2019-10-06 11:35 | PN ---
Teaching Attending Note Name of Resident: Janeth Hudson ATTENDING PHYSICIAN STATEMENT I saw and evaluated the patient. I reviewed the resident's note and discussed the case with the resident. I agree with the resident's findings and plan as documented. SUBJECTIVE: Patient denies SOB. OBJECTIVE: Vital Signs Period Temp Pulse Resp BP Sys/Gregorio Pulse Ox Last 24 Hr 97.3 F-98.3 F 78-89 18-22 123-155/60-80 96-96 HEART: S1S2, RRR LUNGS: Scattered rhonchi ABDOMEN: Soft, non-tender, non-distended, normal BS EXTREMITIES: No edema Laboratory Results - last 24 hr 10/06/19 10/06/19 07:55 07:55 WBC 5.6 RBC 4.87 Hgb 12.3 Hct 37.8 MCV 77.6 L MCH 25.2 L MCHC 32.5 RDW 15.0 Plt Count 212 MPV 7.5 Absolute Neuts (auto) 4.1 Neutrophils % 72.4 Lymphocytes % 11.4 Monocytes % 14.8 H Eosinophils % 0.8 D Basophils % 0.6 Nucleated RBC % 0 Sodium 133 L Potassium 4.0 Chloride 96 L Carbon Dioxide 31 Anion Gap 6 L BUN 17.7 Creatinine 0.5 L Est GFR (CKD-EPI)AfAm 103.73 Est GFR (CKD-EPI)NonAf 89.50 Random Glucose 102 Calcium 9.0 Phosphorus 4.0 Magnesium 1.7 L Current Medications Generic Name Dose Route Start Last Admin Trade Name Freq PRN Reason Stop Dose Admin Acetaminophen 650 mg 10/01/19 10:00 10/04/19 03:14 Tylenol - PO 650 mg Q6H PRN Administration FEVER Albuterol Sulfate 1 amp 10/02/19 12:05 Ventolin 0.083% Nebulizer Soln - NEB Q4H PRN SHORT OF BREATH/WHEEZING Albuterol/Ipratropium 1 amp 10/01/19 08:00 10/06/19 07:35 Duoneb - NEB 1 amp RQID [facility] Administration Budesonide/Formoterol Fumarate 1 puff 10/01/19 10:00 10/06/19 10:59 Symbicort 160/4.5mcg - IH 1 puff BID [facility] Administration Cholecalciferol 2,000 unit 10/02/19 10:00 10/06/19 10:54 Vitamin D3 - PO 2,000 unit DAILY [facility] Administration Docusate Sodium 100 mg 10/02/19 14:14 Colace Liquid - PO DAILY PRN CONSTIPATION Enoxaparin Sodium 40 mg 10/01/19 10:00 10/06/19 10:56 Lovenox - SQ 40 mg DAILY [facility] Administration Folic Acid 2 mg 10/02/19 10:00 10/06/19 10:52 Folic Acid - PO 2 mg DAILY [facility] Administration Guaifenesin 10 ml 10/03/19 10:16 10/06/19 11:01 Robitussin - PO 10 ml Q4H PRN Administration COUGH Ceftriaxone Sodium 1 gm/ 50 mls @ 100 mls/hr 10/02/19 10:00 10/06/19 10:53 Dextrose IVPB 100 mls/hr DAILY [facility] Administration Protocol Doxycycline Hyclate 100 mg/ 100 mls @ 100 mls/hr 10/01/19 22:00 10/06/19 10: 48 Dextrose IVPB 100 mls/hr BID [facility] Administration Losartan Potassium 50 mg 10/01/19 10:00 10/06/19 10:55 Cozaar - PO 50 mg DAILY [facility] Administration [id number]-1-[id number] Ethyl Esters 1 gm 10/02/19 10:00 10/06/19 10:52 Lovaza - PO 1 gm DAILY [facility] Administration Polyethylene Glycol 17 gm 10/02/19 16:45 10/06/19 10:56 Miralax (For Daily Use) - PO 17 grams DAILY [facility] Administration Senna 1 tab 10/02/19 22:00 10/05/19 22:19 Senna - PO 1 tab HS [facility] Administration ASSESSMENT AND PLAN: This is an 84 year old woman with a history of HTN, hyperlipidemia, OA who presented to the ED with SOB. 1. Acute on chronic hypoxic respiratory failure and sepsis secondary to pneumonia - Sepsis resolved - On ceftriaxone, doxycycline - change to Augmentin at discharge - Oxygen to maintain saturation >90% - will need oxygen at discharge - Continue Symbicort, DuoNeb 2. HTN - Continue Cozaar 3. Hyperlipidemia - Continue Lovaza 4. Possible dementia 5. Disposition - Ok for discharge to [facility] on oxygen
--- NOTE | 2019-10-06 11:57 | DS ---
Physical Exam: SUBJECTIVE: Patient seen and examined at bedside. Comfortable, on 3L 02. Discussed plan with pt's son, Ruy. All questions answered. Per , 02 has been delivered and is ready for pt at home. OBJECTIVE: Vital Signs Period Temp Pulse Resp BP Sys/Gregorio Pulse Ox Last 24 Hr 97.3 F-98.3 F 78-89 18-22 123-155/60-80 96-96 Physical Exam general: pleasant, on 3L NC 02 heent: NCAT, PERRLA neck: supple cardio: S1, S2 RRR. no r/m/g pulm: +scattered rhonchi b/l. congestion, rales. 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 grossly intact LABS Laboratory Results - last 24 hr 10/06/19 10/06/19 07:55 07:55 WBC 5.6 RBC 4.87 Hgb 12.3 Hct 37.8 MCV 77.6 L MCH 25.2 L MCHC 32.5 RDW 15.0 Plt Count 212 MPV 7.5 Absolute Neuts (auto) 4.1 Neutrophils % 72.4 Lymphocytes % 11.4 Monocytes % 14.8 H Eosinophils % 0.8 D Basophils % 0.6 Nucleated RBC % 0 Sodium 133 L Potassium 4.0 Chloride 96 L Carbon Dioxide 31 Anion Gap 6 L BUN 17.7 Creatinine 0.5 L Est GFR (CKD-EPI)AfAm 103.73 Est GFR (CKD-EPI)NonAf 89.50 Random Glucose 102 Calcium 9.0 Phosphorus 4.0 Magnesium 1.7 L 10/01/19 10/02/19 10/05/19 04:21 06:50 07:10 WBC 14.5 H 7.5 4.5 Hgb 13.8 11.0 12.4 Hct 41.7 D 33.9 D 38.6 Plt Count 267 205 D 236 10/06/19 07:55 WBC 5.6 Hgb 12.3 Hct 37.8 Plt Count 212 10/01/19 10/01/19 10/01/19 04:21 04:21 11:40 Sodium 127 L Potassium 4.0 Chloride 91 L BUN 13.2 Creatinine 0.6 Random Glucose 110 H Troponin I < 0.02 0.02 B-Natriuretic Peptide 489.8 H Total Protein 7.3 Albumin 3.6 10/02/19 10/05/19 10/06/19 06:50 07:10 07:55 Sodium 132 L 131 L 133 L Potassium 3.7 3.7 4.0 Chloride 98 95 L 96 L BUN 10.1 14.3 17.7 Creatinine 0.5 L 0.5 L 0.5 L Random Glucose 81 104 102 Troponin I B-Natriuretic Peptide Total Protein 5.0 L Albumin 2.3 L 10/01/19 10/01/19 10/01/19 04:41 14:00 15:45 Influenza A (Rapid) Negative Influenza B (Rapid) Negative RSV Rapid Negative Group A Strep Rapid Negative Microbiology 10/02/19 02:26 Urine For Antigen Detection Legionella Antigen - Final 10/01/19 19:45 Sputum - Expectorated Gram Stain - Final 10/01/19 19:45 Sputum - Expectorated Sputum Culture - Final NORMAL RESPIRATORY DELISA 10/01/19 16:12 Throat Throat Culture - Final NO BETA HEMOLYTIC STREPTOCOCCI ISOLATED 10/02/19 02:26 Urine For Antigen Detection Streptococcus pneumoniae Antigen (M - Preliminary Imaging 10/01/19: EKG: NSR, PAC's, rate 94bpm, qtc 475ms. 10/01/19: ECHO: suboptimal study, LVEF normal, mild concentric LVH, RV size and fnc normal. moderate valvular 10/01/19: CXR: new atelectatic changes at the R base, some peristent atelectasis, infiltrate at the L base 10/02/19: CXR: +PPM, large heart, unfolded aorta, degenerative changes, slight increase in bibasilar atelectatic changes and infiltrative changes with some minimal pleural fluid. L>>R. large heart HOSPITAL COURSE: Date of Admission:10/01/19 Date of Discharge: 10/06/19 84 y/o F with h/o HTN, HLD, OA who presented with RLL PNA with underlying hypoxemic respiratory distress requiring supplemental oxygen. Pt discharged back to facility today, 02 delivered per SW. #Acute hypoxic RF 2/2 RLL PNA /CAP -c/w cef, doxy (10/02) completed 5 days; (augmentin 500 BID x 5day to complete 10 day total course) -flu, legionella, cx (-) -c/w symbicort [facility], ventolin PRN at home -will need 3L 02 on d/c, paperwork filled out. 02 delivered to home per -Pulm: Dr. Cardenas ; will need f/u as outpatient #Suspected dementia -will need w/u as outpatient #HTN -c/w losartan #PPM interrogation -per son, and nursing, pt needs interrogation of PPM -follows with Dr. Hutton as outpatient, will follow w/ her this month; d/w son at bedside #Diet reg diet, please add ensure Minutes to complete discharge: 46 Discharge Summary Problems reviewed: Yes Reason For Visit: LEUKOCYTOSIS,HYPOXIA,PNEUMONIA Current Active Problems Hypoxia (Acute) Leukocytosis (Acute) On supplemental oxygen by nasal cannula (Acute) Pneumonia (Acute) Shortness of breath (Acute) Condition: Stable - Instructions Diet, Activity, Other Instructions: You were in the hospital because you had pneumonia in your right lower lobe of your lung. You were treated with IV antibiotics and oxygen. You improved and are being sent home. Medications Please continue to take the following medications upon discharge: 1. Augmentin 500mg (1 pill) twice a day for 5 more days, with your first dose starting tonight (for pneumonia) 2. Symbicort 2 puffs twice a day (scheduled) inhaler to help your asthma/ breathing. This will replace your other inhaler, Wixela but is similar. 3. Ventolin (albuterol) inhaler 1 puff every 4 hours as needed for shortness of breath 4. Use robitussin 10ml every 4 hours as needed for cough. 5. You may continue your other home medications Care You have been started on home oxygen. You will continue this at the facility. you will need to follow up with your physician at the facility, as well as the pulmonary doctor to determine how long you will need this. Workup Your primary care physician may need to do neurological, or neuropsychological testing to rule out dementia. Follow up Please follow up with the following doctors upon your discharge: -the primary care doctor who takes care of you at your facility, Dr. Martinez - this week, upon return -a pulmonary (lung) doctor, Dr. Cardenas - this week -your shuttle driver, Dr. Hutton to have your pacer interrogated . You need to schedule your appointment for this upcoming month. Referrals: Dr. Cira Martinez [Other] - 1 Week Britt Hutton MD [Staff Physician] - 1 Week Fidel Cardenas MD [Staff Physician] - 1 Week Disposition: HOME - Home Medications Comprehensive Discharge Medication List: Ambulatory Orders Folic Acid 2 mg PO DAILY 07/25/19 Losartan Potassium 50 mg PO DAILY 07/25/19 [place]-3 Fatty Acids [[place]-3] 1,000 mg PO DAILY 07/25/19 Ubidecarenone [Coenzyme Q10] 100 mg PO ASDIR 08/17/19 Acetaminophen 500 mg PO TID PRN 09/06/19 Albuterol 0.083% Nebulizer Deborah [Ventolin 0.083% Nebulizer Soln -] 1 neb NEB BID 09/06/19 Cholecalciferol (Vitamin D3) [Vitamin D3] 2,000 unit PO DAILY 09/06/19 Polyethylene Glycol 3350 17 gm PO DAILY PRN 09/06/19 Albuterol Sulfate Inhaler - [Ventolin HFA Inhaler -] 2 inh PO Q6H 10/01/19 Budesonide/Formeterol Fumarate [SYMBICORT 160/4.5mcg -] 1 puff IH BID #2 inhaler 10/05/19 Guaifenesin [Robitussin -] 10 ml PO Q4H PRN #1 bottle 10/05/19 Amoxicillin/Potassium Clav [Augmentin 500-125 Tablet] 1 each PO BID #10 tablet 10/06/19 This patient is new to me today: No Emergency Visit: No Critical Care patient: No - Discharge Referral Referred to [facility] No
[2019-10-06] MEDS ORDERED: AMOX TR/POT CLAV 500MG/125MG TABLETS (FP) PO ONE (12:11)
== END 2019-10-06 14:54 | disposition home health service (06) | DRG 871 ==
LOC: JER 03:03 → JERBED 05:22 → J8W 10:25
PROVIDERS: ATTEND Internal Medicine
DX: A41.9 Sepsis, unspecified organism (principal); J18.9 Pneumonia, unspecified organism; J96.01 Acute respiratory failure with hypoxia; E87.1 Hypo-osmolality and hyponatremia; J98.11 Atelectasis; I10 Essential (primary) hypertension; E78.5 Hyperlipidemia, unspecified; Z95.0 Presence of cardiac pacemaker; J45.909 Unspecified asthma, uncomplicated; E04.1 Nontoxic single thyroid nodule; F03.90 Unspecified dementia, unspecified severity, without behavioral disturbance, psychotic disturbance, mood disturbance, and anxiety; I35.0 Nonrheumatic aortic (valve) stenosis
CPT/HCPCS: 36415; 71045-TC-FY; 80048; 80053; 82550; 83735; 83880; 84100; 84484; 85025; 85027; 87070; 87205; 87804; 87807; 87880; 87899; 93005; 93010; 93306-TC; 94640; 94761; 96374; 97116-GP; 97162-GP; 99282-25; 99284-25; J7030

== ENCOUNTER → 2019-11-22 | Day surgery (SDC) | payer OTHER, MEDICARE ==
--- NOTE | 2019-11-23 15:24 | PATH ---
Cytology Non-Gynecological Report Patient Name: ABELARDO SHETH [facility]. Rec. #: [id number] /Age/Gender: 1935 (Age: 84) / F Account: [id number] Location: RADIOLOGY INTER Taken: 11/22/2019 Received: 11/22/2019 Reported: 11/23/2019 Physicians: Jamie Saldaña M.D. Specimen(s) Received THYROID, RIGHT, FINE NEEDLE ASPIRATION Clinical History Right thyroid lobe, 1.88 x 1.37 x 0.97 cm Final Diagnosis THYROID, RIGHT, FINE NEEDLE ASPIRATION: UNSATISFACTORY FOR EVALUATION. BETHESDA CLASS I: CYSTIC THYROID LESION WITH MACROPHAGES AND RARE FOLLICULAR CELLS. MACROPHAGES IN A BACKGROUND OF THIN COLLOID PRESENT. RARE FOLLICULAR CELLS IDENTIFIED. SEE COMMENT. Comment: The specimen has insufficient follicular cell clusters and/or colloid; and suboptimal for complete cytopathologic evaluation according to [facility] [place] [facility] for Reporting Thyroid FNA. If the nodule has worrisome ultrasound imaging properties, suggest repeat FNA, as warranted. Electronically Signed Dionne Ramos M.D. Gross Description Received are eight direct smears, four of which are air-dried and Diff-Quik stained, and four of which are alcohol fixed and Pap stained. Also received is 20 ml of bloody formalin from which one cellblock is prepared.
== END | disposition home or self-care (01) ==
LOC: JRADIR 09:26
PROVIDERS: ATTEND Internal Medicine Endocrinology, Diabetes & Metabolism
PROC: 0G9K3ZX Drainage of Thyroid Gland, Percutaneous Approach, Diagnostic (ICD-10-PCS; principal; 2019-11-22)
DX: E04.1 Nontoxic single thyroid nodule (principal)
CPT/HCPCS: 76942; 88173; 88305-TC

== ENCOUNTER → 2019-12-08 | Emergency (ER) | payer OTHER, MEDICARE ==
[~2019-12-08] MED LIST: ACETAMINOPHEN 325 MG TABLET (FP) ONE; ACETAMINOPHEN 325 MG TABLET (FP) PO ONE
[2019-12-08 17:33] VITALS: TEMP 97.9; BMI 25.4
--- NOTE | 2019-12-08 17:45 | PDOC ---
History of Present Illness - General Stated Complaint: Injury Time Seen by Provider: 12/08/19 17:17 - History of Present Illness Initial Comments: Darrell Gaston is an 84 y/o female with reported PMH significant for HTN, HLD, RA, cardiac pacemaker placement, OA, COPD, h/o PNA, presenting today with witnessed fall. She normally ambulates with assistance. Per her nursing instructor, she was being assisted in the bathroom when she slipped and fell. Reports fal ling onto her back. Denies dizziness/heart palpitations/LOC. Reports mild posterior headache. No vision changes. No nausea/vomiting. No chest pain/shortness of breath. No abdominal pain. No dysuria. Pt is able to ambulate at her baseline at bedside. No neck pain. Past History - Past Medical History Allergies/Adverse Reactions: Allergies Allergy/AdvReac Type Severity Reaction Status Date / Time pollen extracts Allergy Unknown Verified 10/01/19 03:10 leflunomide [From Arava] Allergy Verified 10/01/19 03:10 Home Medications: Ambulatory Orders Folic Acid 2 mg PO DAILY 07/25/19 Losartan Potassium 50 mg PO DAILY 07/25/19 [place]-3 Fatty Acids [[place]-3] 1,000 mg PO DAILY 07/25/19 Ubidecarenone [Coenzyme Q10] 100 mg PO ASDIR 08/17/19 Albuterol 0.083% Nebulizer Deborah [Ventolin 0.083% Nebulizer Soln -] 1 neb NEB BID 09/06/19 Cholecalciferol (Vitamin D3) [Vitamin D3] 2,000 unit PO DAILY 09/06/19 Polyethylene Glycol 3350 17 gm PO DAILY PRN 09/06/19 Albuterol Sulfate Inhaler - [Ventolin HFA Inhaler -] 2 inh PO Q6H 10/01/19 Budesonide/Formeterol Fumarate [SYMBICORT 160/4.5mcg -] 1 puff IH BID #2 inhaler 10/05/19 Rivastigmine [Exelon Patch 9.5 mg/24 Hours] 1 each TD DAILY 12/08/19 Asthma: Yes COPD: No HTN: Yes Hypercholesterolemia: Yes - Immunization History Td Vaccination: Yes TDAP Vaccination: Yes Immunization Up to Date: Yes - Psycho Social/Smoking Cessation Hx Smoking History: Never smoked Have you smoked in the past 12 months: No Hx Alcohol Use: No Drug/Substance Use Hx: No Substance Use Type: None Hx Substance Use Treatment: No Review of Systems - Review of Systems Comments:: GENERAL/CONSTITUTIONAL: No fever or chills. No weakness._ HEAD, EYES, EARS, NOSE AND THROAT: No change in vision. No change in hearing. No sore throat._ CARDIOVASCULAR: No chest pain or shortness of breath_ RESPIRATORY: Denies cough, hemoptysis_ GASTROINTESTINAL: No nausea, vomiting, diarrhea or constipation._ GENITOURINARY: No dysuria, frequency, or change in urination._ MUSCULOSKELETAL: Reports chronic, diffuse joint pain. No neck or back pain._ SKIN: No rash_ NEUROLOGIC: Reports mild headache. No vertigo, loss of consciousness, or change in strength/sensation._ ENDOCRINE: No increased thirst. No abnormal weight change_ HEMATOLOGIC/LYMPHATIC: No anemia, easy bleeding, or history of blood clots._ ALLERGIC/IMMUNOLOGIC: No hives or skin allergy._ *Physical Exam - Vital Signs Last Vital Signs Temp Pulse Resp BP Pulse Ox 97.9 F 71 19 132/58 L 98 12/08/19 17:31 12/08/19 17:31 12/08/19 17:31 12/08/19 17:31 12/08/19 17:31 - Physical Exam GENERAL: Awake, alert, and oriented to person/place/time, in no acute distress_ HEAD: No signs of trauma, normocephalic, atraumatic _ EYES: PERRLA, EOMI, sclera anicteric, conjunctiva clear_ ENT: Hearing grossly normal, nares patent, oropharynx clear without exudates. No uvular deviation. Moist mucosa_ NECK: Normal ROM, supple, no lymphadenopathy, JVD, or masses. No C-spine TTP. LUNGS: No distress, speaks in full sentences, clear to auscultation bilaterally _ HEART: Regular rate and rhythm, normal S1 and S2, no murmurs appreciated, peripheral pulses normal and equal bilaterally._ ABDOMEN: Soft, nontender, normoactive bowel sounds. No guarding, no rebound. No masses_ BACK: No T-spine or L-spine TTP. EXTREMITIES: Normal inspection, Normal range of motion, no edema. No clubbing or cyanosis_ NEUROLOGICAL: Cranial nerves II through XII grossly intact. Normal speech, ambulates with assistance, no focal sensorimotor deficits _ SKIN: Warm, Dry, normal turgor, no rashes or lesions noted. No bruising. ED Treatment Course - RADIOLOGY Radiology Studies Ordered: Category Date Time Status CERVICAL SPINE CT W/O CONTR [CT] Stat CT Scan 12/08/19 17:[address] WITHOUT CONTRAST [CT] Stat CT Scan 12/08/19 17:38 Ordered Medical Decision Making - Medical Decision Making 84F presenting s/p witnessed fall while being assisted in the bathroom. -CT head -CT c-spine -CXR -XR left shoulder 12/08/19 18:41 CT head negative for acute intracranial bleed or pathology. CT c-spine negative for acute fracture. 12/08/19 19:33 XR left shoulder shows no acute fracture or dislocation. CXR shows pacemaker in place, no obvious rib fracture, sternal fracture, or t- spine fracture. Pt reassessed. Reports feeling better. Plan to d/c home. All questions answered. Return precautions give. Pt and caregiver verbalized understanding and agreement with plan. Discharge - Discharge Information Problems reviewed: Yes Clinical Impression/Diagnosis: Fall Condition: Stable Disposition: HOME - Admission No - Follow up/Referral Referrals: Jesusita Martinez [Primary Care Provider] - - Patient Discharge Instructions Additional Instructions: Your CT scans and x-rays did not show any acute fracture or bleeding. Please take Tylenol as needed for pain control. If you experience any new, worsening, or concerning symptoms, including numbness, tingling, headache, dizziness, chest pain, shortness of breath, or any other concerns, please return to the emergency department. - Post Discharge Activity
--- NOTE | 2019-12-08 18:14 | PDOC ---
Documentation entered by Ghazala Quick SCRIBE, acting as scribe for Tiana Licona DO. Tiana Licona DO: This documentation has been prepared by the Abdelrahman gonsalez Brenda, SCRIBE, under my direction and personally reviewed by me in its entirety. I confirm that the documentation accurately reflects all work, treatment, procedures, and medical decision making performed by me. Attending Attestation - Resident Resident Name: DickersonRobin - ED Attending Attestation I have performed the following: I have examined & evaluated the patient, The case was reviewed & discussed with the resident, I agree w/resident's findings & plan, Exceptions are as noted - HPI HPI: 12/08/19 17:45 The patient is an 84 year old female with a significant PMH of HTN, HLD, RA, Cardiac Pacemaker, OA, Asthma and pneumonia who presents to the ED for evaluation of Allergies: Pollen extracts, leflunomide PCP: Jesusita Martinez (Dr. Quiñones admits -> might be Dr. Dunaway in place of Ishmael) - Physicial Exam PE: 12/08/19 17:56 GENERAL: Awake, alert, and fully oriented, in no acute distress HEAD: No signs of trauma EYES: PERRLA, EOMI, sclera anicteric, conjunctiva clear ENT: Auricles normal inspection, hearing grossly normal, nares patent, oropharynx clear without exudates. Moist mucosa NECK: Normal ROM, supple, no lymphadenopathy, JVD, or masses LUNGS: Breath sounds equal, clear to auscultation bilaterally. No wheezes, and no crackles HEART: Regular rate and rhythm, normal S1 and S2, no murmurs, rubs or gallops ABDOMEN: (+) Large ventral hernia. Soft, nontender, normoactive bowel sounds. No guarding, no rebound. No masses EXTREMITIES: Normal range of motion, no edema. No clubbing or cyanosis. No cords, erythema, or tenderness NEUROLOGICAL: Cranial nerves II through XII grossly intact. No midline tenderness. Normal speech, normal gait SKIN: Warm, Dry, normal turgor, no rashes or lesions noted. - Medical Decision Making 12/08/19 18:09 I, Dr. Tiana Licona DO, attest that this document has been prepared under my direction and personally reviewed by me in its entirety. I further attest, that it accurately reflects all work, treatment, procedures and medical decision-making performed by me. a/p: 84yo female s/p a fall in the bathroom earlier tonight at [facility]. -pt was with her aide, when she fell backwards and hit her head on the floor, no loc -pt arrives aaox3, nad -pt with posterior scalp pain and paraspinal L sided neck pain -pt with arthritis and chronic pain in her back and joints -states she fell a few weeks ago and hurt her shoulder - L shoulder and still having pain -will send for xrays and ct imaging 12/08/19 19:45 head and c spine ct neg xrays do not show acute findings pacer in place, L shoulder without fx stable for dc back to [facility]
[2019-12-08 20:22] VITALS: BP 129/62; PULSE 70
== END | disposition home or self-care (01) ==
LOC: JER 17:05
DX: Z04.1 Encounter for examination and observation following transport accident (principal); Z88.8 Allergy status to other drugs, medicaments and biological substances; J45.909 Unspecified asthma, uncomplicated; I10 Essential (primary) hypertension; E78.00 Pure hypercholesterolemia, unspecified
CPT/HCPCS: 70450-TC; 71046-TC-FY; 72125-TC; 73030-TC-LT-FY; 99284-25

== ENCOUNTER 2020-06-19 08:35 | Emergency (ER) | payer OTHER, MEDICARE ==
[2020-06-19 08:54] VITALS: TEMP 97.6; BMI 24.4
--- OUTSIDE RECORDS SUMMARY | 2020-06-19 09:13 | XMS ---
:1935 [facility] Support Name Relationship Address Phone RE Unavailable Unavailable Unavailable [place] [address] [place] [address] Re-disclosure Warning The records that you are about to access may contain information from federally- assisted alcohol or drug abuse programs. If such information is present, then the following federally mandated warning applies: This information has been disclosed to you from records protected by federal confidentiality rules (42 CFR part 2). The federal rules prohibit you from making any further disclosure of this information unless further disclosure is expressly permitted by the written consent of the person to whom it pertains or as otherwise permitted by 42 CFR part 2. A general authorization for the release of medical or other information is NOT sufficient for this purpose. The Federal rules restrict any use of the information to criminally investigate or prosecute any alcohol or drug abuse patient.The records that you are about to access may contain highly sensitive health information, the redisclosure of which is protected by Article 27-F of the [facility] Public Health law. If you continue you may haveaccess to information: Regarding HIV / AIDS; Provided by facilities licensed or operated by the [facility] Office of Mental Health; or Provided by the [facility] Office for People With Developmental Disabilities. If such information is present, then the following [facility] mandated warning applies: This information has been disclosed to you from confidential records which are protected by state law. State law prohibits you from making any further disclosure of this information without the specific written consent of the person to whom it pertains, or as otherwise permitted by law. Any unauthorized further disclosure in violation of state law may result in a fine or halfway sentence or both. A general authorization for the release of medical or other information is NOT sufficient authorization for further disclosure. Insurance Providers Payer name Policy type Policy ID Covered Covered Policy Plan / Coverage libertarian ID libertarian's Arthur Informati on type relationship to arthur [facility] [id number] [employer] MEDICARE [id number] SP [id number] [facility] [id number] SP [id number] [employer] MEDICARE [id number] SP [id number] [facility] [id number] CARE OPTIONS [facility] MEDICARE [id number] 1 [id number] SUPPLEMENT [place] [id number] 1 [id number] PART B [place] [id number] 1 [id number] PART B [employer] Results ID Date Data Source [id number] 05/22/2020 07:20:00 PM EDT [facility] Name Value Range Interpretation Code Description Data Martha rce(s) Supporting Document(s ) SARS-CoV-2 [facility] (COVID19) This lab was ordered by [facility] and reported by [facility]. ID Date Data Source [id number] 02/18/2020 10:00:00 AM EDT [facility] Name Value Range Interpretation Code Description Data Martha rce(s) Supporting Document(s ) SARS-CoV-2 [facility] (COVID-19) This lab was ordered by [facility] and reported by [facility]. Procedure
[2020-06-19] MEDS ORDERED: ACETAMINOPHEN 325 MG TABLET (FP) PO ONE (09:48)
--- NOTE | 2020-06-19 10:01 | PDOC ---
History of Present Illness - General Chief Complaint: Injury Stated Complaint: FALL Time Seen by Provider: 06/19/20 09:34 - History of Present Illness Initial Comments: HPI: 85yo F presenting sent from [facility] with mechanical fall witnessed by her home health aide. Patient reports she was walking with her walker from the bathroom and was trying to get to her recliner but lost her balance. She fell back and hit the back of her head. No loss of consciousness, nausea, or vomiting. Endorsing pain in the area of impact as well as neck pain. Denies prodrome prior to fall: no weakness, dizziness, chest pain, or shortness of breath. No fevers or chills. PCP: Dr. Martinez ROS: Constitutional: no fever, no chills HEENT: no throat pain, no dysphagia Cardiovascular: no chest pain, no palpitations Respiratory: no cough, no shortness of breath Gastrointestinal: no abdominal pain, no nausea Genitourinary: no dysuria, no hematuria Musculoskeletal: no myalgia, no arthralgia Skin: no rash, no itching Neurologic: no headache, no weakness Psych: no agitation, no anxiety PE: General: Awake, alert, and fully oriented, in no acute distress Head: Soft tissue swelling on right side of posterior head without break in skin Eyes: EOMI, sclera anicteric ENT: Moist mucus membranes Neck: Mild tenderness to to palpation along C4-C5, midline, without stepoff or deformity Lungs: Lungs clear, Normal breath sounds Cardio: Regular rhythm, S1 and S2 present Abdomen: Soft, nontender. No guarding, no rebound, no masses Extremities: Normal range of motion, Distal pulses present, No pain elicited upon rocking pelvis Skin: Warm, Dry, normal turgor Neurologic: Cranial nerves II through XII grossly intact. Normal speech ED Course/MDM: DDX including but not limited to mechanical fall, brain bleed, cspine fracture, syncope CTH/Cspine Tylenol Patient with witnessed fall consistent with mechanical mechanism Denies prodrome: low suspicion for syncope Not on anticoagulant medications but given advanced age, will obtain CT Head to rule out intracranial bleed Mild midline neck tenderness: will obtain CT Cspine to rule out fracture Will reassess 06/19/20 09:57 CT Cspine: "EXAM#: TYPE/EXAM: RESULT: [id number] CT/CERVICAL SPINE CT W/O CONTR History provided: Fall. Sequential axial images were then cervical spine from the base of the skull to the thoracic inlet. Coronal and sagittal reconstructed images were also performed. There is no evidence of fracture, subluxation or acute bony abnormalities. There are moderate degenerative arthritic changes noted diffusely, most marked at C6-7. The spinal canal is widely patent with no evidence of cord compromise. IMPRESSION: Moderately severe degenerative arthritis with no fracture or acute pathology. Reported By: Brandon Voss MD 06/19/20 1106 " CT Head: "EXAM#: TYPE/EXAM: RESULT: [id number] CT/HEAD CT WITHOUT CONTRAST HISTORY PROVIDED: Fall TECHNIQUE: Sequential axial images were obtained from the base of the skull to the vertex. There is no evidence of acute intracranial hemorrhage, mass lesions or infarctions. There is a mild to moderate degree of diffuse cerebral atrophy with sulcal widening and ventricular dilatation. There is a scalp hematoma in the right posterior parietal region. There is no evidence of fracture or acute bony pathology. IMPRESSION: No evidence of acute intracranial pathology. Reported By: Brandon Voss MD 06/19/20 1104 " CXR: "EXAM#: TYPE/EXAM: RESULT: [id number] RAD/CHEST X-RAY PORTABLE* Chest: Trauma. Pain. One view of the chest has been submitted. Since the prior study of 12/08/2019 again noted is a large heart, unfolded aorta, normal nate, left-sided pacemaker, slight prominence of the superior mediastinum, midline trachea and sharp angles. The bones and soft tissues are intact. There are some degenerative changes. 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 An acute process is not seen. Impression : No acute chest pathology. No significant change since 12/08/2019. Reported By: Cristobal Alford MD 06/19/20 1119 " Radiograph pelvis: "EXAM#: TYPE/EXAM: RESULT: [id number] RAD/PELVIS Pelvis: Trauma. Pain. An AP view of the pelvis reveals a possible subtle left inferior pubic ramus fracture. The hips appear intact. The other bones appear intact. For more complete evaluation, CT is suggested. Reported By: Cristobal Alford MD 06/19/20 1120 " Ambulating at baseline, per aide at the bedside (unsteady, shuffling gait; uses a walker); low suspicion for pelvic pathology Non-acute CT Head and Cspine Return precautions Stable for discharge 06/19/20 12:39 Past History - Medical History Allergies/Adverse Reactions: Allergies Allergy/AdvReac Type Severity Reaction Status Date / Time pollen extracts Allergy Unknown Verified 06/19/20 08:52 leflunomide [From Arava] Allergy Verified 06/19/20 08:52 Home Medications: Ambulatory Orders Losartan Potassium 50 mg PO DAILY 07/25/19 [place]-3 Fatty Acids [[place]-3] 1,000 mg PO DAILY 07/25/19 Ubidecarenone [Coenzyme Q10] 100 mg PO ASDIR 08/17/19 Cholecalciferol (Vitamin D3) [Vitamin D3] 2,000 unit PO DAILY 09/06/19 Polyethylene Glycol 3350 17 gm PO DAILY PRN 09/06/19 Albuterol Sulfate Inhaler - [Ventolin HFA Inhaler -] 2 inh PO Q6H 10/01/19 Desvenlafaxine [Desvenlafaxine ER] 50 mg PO DAILY 06/19/20 Glycopyrrol/Nebulizer/Accessor [[place] Magnair 25 Mcg Starter] 25 mcg IH BID 06/19/20 Guaifenesin [Robafen] 10 ml PO Q4H PRN 06/19/20 Asthma: Yes COPD: No HTN: Yes Hypercholesterolemia: Yes - Surgical History Cardiac Surgery: Yes (PACEMAKER) - Immunization History Td Vaccination: Yes TDAP Vaccination: Yes Immunization Up to Date: Yes - Psycho-Social/Smoking History Smoking History: Never smoked Have you smoked in the past 12 months: No - Substance Abuse Hx (Audit-C & DAST Scrn) How often the patient has a drink containing alcohol: Never Score: In Men: 4 or > Positive; In Women: 3 or > Positive: 0 Screen Result (Pos requires Nsg. Audit-10AR): Negative In the last yr the pt used illegal drug/Rx for NonMed reason: No Score: Yes response is considered Positive: 0 Screen Result (Positive result requires Nsg. DAST-10): Negative *Physical Exam - Vital Signs Last Vital Signs Temp Pulse Resp BP Pulse Ox 97.6 F 77 20 186/76 H 100 06/19/20 08:52 06/19/20 08:52 06/19/20 08:52 06/19/20 08:52 06/19/20 08:52 ED Treatment Course - RADIOLOGY Radiology Studies Ordered: Category Date Time Status CERVICAL SPINE CT W/O CONTR [CT] Stat CT Scan 06/19/20 09:[address] WITHOUT CONTRAST [CT] Stat CT Scan 06/19/20 09:48 Ordered CHEST X-RAY PORTABLE* [RAD] Stat Radiology 06/19/20 09:55 Ordered PELVIS [RAD] Stat Radiology 06/19/20 09:55 Ordered Discharge - Discharge Information Problems reviewed: Yes Clinical Impression/Diagnosis: Fall Qualifiers: Encounter type: initial encounter Qualified Code(s): W19.XXXA - Unspecified fall, initial encounter Condition: Stable Disposition: HOME - Follow up/Referral Referrals: Jesusita Martinez [Primary Care Provider] - - Patient Discharge Instructions Patient Printed Discharge Instructions: How to Prevent Falls Additional Instructions: You came into the emergency department after a fall. We performed a CT scan of your head and neck which did not indicate acute pathology. Follow-up with your primary care doctor this week to discuss this ED visit and to ensure you are progressing appropriately. Call and make an appointment. Your workup is not complete until you do so. Immediate medical attention is required if you experience: severe headache, fever and chills, nausea and vomiting, lightheadedness, inability to breathe or very rapid breathing, rapid irregular heartbeat, chest pain, or trouble breathing. If you think you are having an emergency, call for emergency medical services or present to the emergency department right away - Post Discharge Activity
--- NOTE | 2020-06-19 10:11 | PDOC ---
Documentation entered by Romeo Merino SCRIBE, acting as scribe for Anai Yusuf MD. Anai Yusuf MD: This documentation has been prepared by the Angelique gonsalez Xhesika, SCRIBE, under my direction and personally reviewed by me in its entirety. I confirm that the documentation accurately reflects all work, treatment, procedures, and medical decision making performed by me. Attending Attestation - Resident Resident Name: Julio Cesar Markth - ED Attending Attestation I have performed the following: I have examined & evaluated the patient, The case was reviewed & discussed with the resident, I agree w/resident's findings & plan, Exceptions are as noted - HPI HPI: 06/19/20 09:39 The patient is an 85 year old female with a significant PMH of HTN, HLD, RA, Cardiac Pacemaker, OA, Asthma and pneumonia who presents to the ED for s/p fall from standing height. Pt states she hit her head but denies LOC. Walks with a walker at baseline and was walking back to her chair when she lost balance and f ell backwards hitting the back of her head. Only complaining of pain to the back of her head. The patient denies chest pain, shortness of breath, and dizziness. Denies fever, chills, cough, nausea, vomiting, and constipation. Denies dysuria, frequency, urgency and hematuria. Allergies: Pollen extracts, leflunomide PCP: Jesusita Martinez - Physicial Exam PE: 06/19/20 09:56 General: well appearing HEENT: no racoon eyes, no cheng sign, +hematoma to occiput, no other abrasions or lacerations Neck: pt. removed c-collar, mild midline tenderness but patient moving neck in all directions Extremities: warm and well perfused, no LE edema, moving all extremities, no pelvic instability Neuro: Aox3, speech fluent, face symmetric, sensation intact to light touch, strength preserved at baseline, no new focal deficits - Medical Decision Making 06/19/20 10:05 85 yo F with mechanical fall, neurologically intact, not on any a/c, exam notable for hematoma to posterior scalp without any otehr lacerations or abrasions, also with mild midline tenderness of c-spine but patient removed c- collar and with FROM, low suspicion for fx or ICH however given age will get CT c-spine and CT head to r/o acute injury. Plan: -cxr -pelvis xray -CT head -CT c-spine -pain control as needed -reassess This clinical encounter is taking place during a federal and state health care emergency attributable to the novel [place] Virus pandemic. The [employer] Analyst of the Department of Health and Human Services has declared, pursuant to the Public Health Service Act 319F-3 (42 U.S.C. 247d-6d), that a covered persons activities related to medical countermeasures against COVID-19 will be immune from liability under Federal and State law. 06/19/20 13:02 Labs and imaging reviewed. ?L pubic rami fracture however patient without complaints of pain and currently ambulatory in ED at baseline. Will d/c with return precautions, recommend PMD f/u. Discharge - Discharge Information Problems reviewed: Yes Clinical Impression/Diagnosis: Fall Qualifiers: Encounter type: initial encounter Qualified Code(s): W19.XXXA - Unspecified fall, initial encounter Condition: Stable Disposition: HOME - Follow up/Referral Referrals: Jesusita Martinez [Primary Care Provider] - - Patient Discharge Instructions Patient Printed Discharge Instructions: How to Prevent Falls Additional Instructions: You came into the emergency department after a fall. We performed a CT scan of your head and neck which did not indicate acute pathology. Follow-up with your primary care doctor this week to discuss this ED visit and to ensure you are progressing appropriately. Call and make an appointment. Your workup is not complete until you do so. Immediate medical attention is required if you experience: severe headache, fever and chills, nausea and vomiting, lightheadedness, inability to breathe or very rapid breathing, rapid irregular heartbeat, chest pain, or trouble breathing. If you think you are having an emergency, call for emergency medical services or present to the emergency department right away - Post Discharge Activity
[2020-06-19] MEDS ORDERED: ACETAMINOPHEN 325 MG TABLET (FP) ONE (10:17)
[2020-06-19 16:11] VITALS: BP 164/74; PULSE 71
== END 2020-06-19 16:11 | disposition home or self-care (01) ==
LOC: JER 08:35
DX: S09.90XA Unspecified injury of head, initial encounter (principal)
CPT/HCPCS: 70450-TC; 71045-TC-FY; 72125-TC; 72170-TC-FY; 99285-25

== ENCOUNTER 2021-03-25 16:19 | Emergency (ER) | payer OTHER, MEDICARE ==
[2021-03-25 16:37] VITALS: TEMP 98.5; BMI 27.1
[2021-03-25] MEDS ORDERED: ACETAMINOPHEN 325 MG TABLET (FP) PO ONE (17:21)
[2021-03-25] MEDS ORDERED: ACETAMINOPHEN 325 MG TABLET (FP) ONE (17:27)
[2021-03-25 20:53] VITALS: BP 140/71; PULSE 72
[2021-03-25] MEDS ORDERED: LIDOCAINE 5% TOPICAL PATCH TP ONE ×2 (21:32→21:37)
[2021-03-25] MEDS ORDERED: LIDOCAINE 5% TOPICAL PATCH ONE (21:41)
[2021-03-26] MEDS ORDERED: LIDOCAINE PATCH REMOVAL MC ONE ×2 (10:00)
== END 2021-03-25 22:37 | disposition home or self-care (01) ==
LOC: JER 16:19
DX: M54.5 Low back pain (principal)
CPT/HCPCS: 70450-TC; 72125-TC; 72128-TC; 72131-TC; 99285-25

== ENCOUNTER 2021-05-03 19:21 | Emergency (ER) | payer OTHER, MEDICARE ==
[2021-05-03 19:29] VITALS: BMI 29.2
[2021-05-03] MEDS ORDERED: ACETAMINOPHEN 500 MG TABLET (FP) PO ONE (19:44)
[2021-05-03] MEDS ORDERED: ACETAMINOPHEN 500 MG TABLET (FP) ONE (20:07)
[2021-05-03] MEDS ORDERED: IBUPROFEN 400 MG TABLET (FP) PO ONE ×2 (22:39→22:58)
[2021-05-04 01:34] VITALS: BP 148/50; PULSE 79; TEMP 97.7
== END 2021-05-04 04:34 | disposition home or self-care (01) ==
LOC: JER 19:21
DX: S09.90XA Unspecified injury of head, initial encounter (principal); R05 Cough; W01.190A Fall on same level from slipping, tripping and stumbling with subsequent striking against furniture, initial encounter
CPT/HCPCS: 70450-TC; 71045-TC-FY; 72125-TC; 72170-TC-FY; 99285-25

== ENCOUNTER 2021-05-07 13:10 | Inpatient (IN) | payer OTHER, MEDICARE ==
[2021-05-07] MEDS ORDERED: ACETAMINOPHEN 1000 MG/100 ML VIAL (NON FORMULARY) IVPB ONE (13:44)
[2021-05-07] MEDS ORDERED: ALBUTEROL SO4 0.083% IH SOL 2.5 MG/3 ML VIAL.NEB. NEB ONE (13:51)
[2021-05-07] MEDS ORDERED: ACETAMINOPHEN INJECTION 100 ML IVPB ONE (13:58)
[2021-05-07] MEDS: ALBUTEROL SO4 2.5/IPRATROPIUM 0.5 INH SOL 3 ML VIAL.NEB. NEB SCH ×2 (14:22→15:49)
[2021-05-07 14:27] LABS: BASO % 0.6 % (0-2.0); EOS % 0.2 % (0-4.5); HEMATOCRIT 35.7 % (32.4-45.2); LYMPH % 7.7 % (8-40); MCH 26.4 pg (25.7-33.7); MCHC 33.6 g/dl (32.0-36.0); MEAN CELL VOLUME 78.7 fl (80-96); MEAN PLT VOLUME 8.7 fl (7.5-11.1); MONO % 11.7 % (3.8-10.2); NEUT % 79.8 % (42.8-82.8); PLATELET COUNT 193 10^3/uL (134-434); RBC 4.54 M/mm3 (3.60-5.2); RDW 14.2 % (11.6-15.6); WHITE BLOOD COUNT 10.3 K/mm3 (4.0-10.0)
[2021-05-07 14:34] LABS: INR 1.05 (0.83-1.09); PROTHROMBIN TIME (PATIENT) 12.9 SEC (9.7-13.0)
[2021-05-07 14:36] LABS: ACTIVATED PTT 33.1 SECONDS (25.2-36.5)
[2021-05-07 14:50] LABS: CHLORIDE 101 mmol/L (98-107); SODIUM 136 mmol/L (136-145)
[2021-05-07 14:51] LABS: CALCIUM 8.5 mg/dL (8.5-10.1)
[2021-05-07 14:52] LABS: ALBUMIN 3.3 g/dl (3.4-5.0); ANION GAP 7 MMOL/L (8-16); CO2 28 mmol/L (21-32); GLUCOSE,RANDOM 105 mg/dL (74-106)
[2021-05-07 14:55] LABS: CREATININE 0.6 mg/dL (0.55-1.3); SGOT/AST 13 U/L (15-37); SGPT/ALT 18 U/L (13-61)
[2021-05-07 14:57] LABS: BILIRUBIN,TOTAL 0.4 mg/dL (0.2-1)
[2021-05-07 14:58] LABS: ALK PHOS 65 U/L (45-117); TOT PROT 6.7 g/dl (6.4-8.2)
[2021-05-07 15:00] LABS: N-TERMINAL BNP 160.4 pg/ml (5-450)
[2021-05-07 16:01] LABS: EPI CELLS 8 /uL (0-25.1); HYALINE CASTS 0 /uL (0-3.1); PH,URINE 6.5 (5.0-8.0); URINE APPEARANCE CLEAR; URINE BACTERIA 66 /uL (0-1359); URINE BILIRUBIN NEGATIVE (NEGATIVE); URINE COLOR YELLOW; URINE GLUCOSE (UA) NEGATIVE (NEGATIVE); URINE KETONE NEGATIVE (NEGATIVE); URINE LEUK ESTERASE TRACE (NEGATIVE); URINE NITRITE NEGATIVE (NEGATIVE); URINE PROTEIN 1+ (NEGATIVE); URINE RBC 15 /uL (0-23.9); URINE UROBILINOGEN 0.2 mg/dL (0.2-1.0); URINE WBC 40 /uL (0-25.8)
[2021-05-07] MEDS ORDERED: AZITHROMYCIN IVPB 500 MG in DEXTROSE 5%-WATER - 250 ML IVPB ONE (16:58)
[2021-05-07] MEDS ORDERED: AZITHROMYCIN IVPB 500 MG/250 ML BAG IVPB ONE (17:44)
[2021-05-07] MEDS ORDERED: CEFTRIAXONE 1 GM/50 ML BAG ONE (17:44)
[2021-05-07] MEDS ORDERED: ACETAMINOPHEN 325 MG TABLET (FP) PO PRN (18:38)
[2021-05-07] MEDS ORDERED: PANTOPRAZOLE SODIUM 40 MG VIAL ONE (18:59)
[2021-05-07] MEDS ORDERED: ENOXAPARIN NA (PORCINE) 40 MG/0.4 ML DISP.SYRIN SQ ONE (18:59)
[2021-05-07] MEDS: PANTOPRAZOLE 40 MG TABLET PO SCH (19:32)
[2021-05-07] MEDS: ENOXAPARIN NA (PORCINE) 40 MG/0.4 ML DISP.SYRIN SQ SCH (19:32)
[2021-05-07] MEDS: oxyCODONE HCL 5 MG TABLET PO PRN (22:40)
[2021-05-07] MEDS: ACETAMINOPHEN 325 MG TABLET (FP) PO PRN (22:41)
[2021-05-07] MEDS: GABAPENTIN 100 MG CAPSULE PO SCH (22:41)
[2021-05-08] MEDS: GABAPENTIN 100 MG CAPSULE PO SCH ×3 (06:32→21:02)
[2021-05-08] MEDS: ALBUTEROL SO4 2.5/IPRATROPIUM 0.5 INH SOL 3 ML VIAL.NEB. NEB PRN (06:55)
[2021-05-08] MEDS: oxyCODONE HCL 5 MG TABLET PO PRN (10:15)
[2021-05-08] MEDS: ACETAMINOPHEN 325 MG TABLET (FP) PO PRN ×2 (10:15→18:33)
[2021-05-08] MEDS: VENLAFAXINE HCL 37.5 MG E.R. CAPSULE PO SCH (10:16)
[2021-05-08] MEDS: LOSARTAN POTASSIUM 50 MG TABLET PO SCH (10:16)
[2021-05-08] MEDS: OMEGA-3 ACID ETHYL ESTERS (FATTY-ACIDS) 1 GM CAPSULE (FP) PO SCH (10:16)
[2021-05-08] MEDS: CHOLECALCIFEROL (VIT D3) 1,000 UNIT (25 MCG) TABLET PO SCH (10:16)
[2021-05-08] MEDS: PANTOPRAZOLE 40 MG TABLET PO SCH (10:16)
[2021-05-08] MEDS: POLYETHYLENE GLYCOL (HEALTHYLAX) 3350 17 GM PACKET PO SCH (10:17)
[2021-05-08] MEDS: ENOXAPARIN NA (PORCINE) 40 MG/0.4 ML DISP.SYRIN SQ SCH (10:17)
[2021-05-08 12:39] LABS: BASO % 0.3 % (0-2.0); EOS % 0.2 % (0-4.5); HEMATOCRIT 32.3 % (32.4-45.2); HEMOGLOBIN 10.9 GM/dL (10.7-15.3); MCH 26.1 pg (25.7-33.7); MCHC 33.8 g/dl (32.0-36.0); MEAN CELL VOLUME 77.1 fl (80-96); MEAN PLT VOLUME 8.8 fl (7.5-11.1); MONO % 11.4 % (3.8-10.2); NEUT % 79.1 % (42.8-82.8); PLATELET COUNT 197 10^3/uL (134-434); RBC 4.19 M/mm3 (3.60-5.2)
[2021-05-08 13:05] LABS: CALCIUM 8.2 mg/dL (8.5-10.1)
[2021-05-08 13:07] LABS: BLOOD UREA NITROGEN 17.1 mg/dL (7-18)
[2021-05-08 13:09] LABS: CREATININE 0.6 mg/dL (0.55-1.3)
[2021-05-08] MEDS: AZITHROMYCIN IVPB 500 MG/250 ML BAG IVPB SCH (13:26)
[2021-05-08] MEDS ORDERED: DEXTROSE 5%-WATER 100 ML IVPB ONE (14:57)
[2021-05-08] MEDS: CEFTRIAXONE 2 GM in DEXTROSE 5%-WATER 2 GM/100 ML BAG IVPB SCH (15:13)
[2021-05-08] MEDS ORDERED: IRON SUCROSE INJECTION 200 MG in SODIUM CHLORIDE 90 ML IVPB ONE (18:16)
[2021-05-08 19:45] LABS: BF WBC & OTHER NUCLEATED CELLS 8816 /mm3; BODY FLUID MACROPHAGES 8 %; BODY FLUID MONOCYTE 4 %
[2021-05-09] MEDS: GABAPENTIN 100 MG CAPSULE PO SCH ×3 (05:26→21:59)
[2021-05-09 09:14] LABS: BASO % 0.2 % (0-2.0); EOS % 0.1 % (0-4.5); HEMATOCRIT 31.6 % (32.4-45.2); HEMOGLOBIN 10.5 GM/dL (10.7-15.3); LYMPH % 7.2 % (8-40); MCH 25.9 pg (25.7-33.7); MCHC 33.2 g/dl (32.0-36.0); MEAN CELL VOLUME 78.1 fl (80-96); MEAN PLT VOLUME 8.8 fl (7.5-11.1); NEUT % 81.5 % (42.8-82.8); PLATELET COUNT 191 10^3/uL (134-434); RBC 4.05 M/mm3 (3.60-5.2)
[2021-05-09] MEDS ORDERED: D5-1/2NS+10 MEQ KCL - 10 MEQ/1,000 ML INFUS.BAG IV SCH (09:15)
[2021-05-09 09:24] LABS: BLOOD UREA NITROGEN 16.7 mg/dL (7-18)
[2021-05-09 09:27] LABS: CREATININE 0.6 mg/dL (0.55-1.3)
[2021-05-09] MEDS ORDERED: PT OWN MED DRAWER 7, Y5N ONE (10:11)
[2021-05-09] MEDS ORDERED: DEXTROSE 5%-WATER 100 ML IVPB ONE (10:11)
[2021-05-09] MEDS: OMEGA-3 ACID ETHYL ESTERS (FATTY-ACIDS) 1 GM CAPSULE (FP) PO SCH (10:16)
[2021-05-09] MEDS: LOSARTAN POTASSIUM 50 MG TABLET PO SCH (10:16)
[2021-05-09] MEDS: VENLAFAXINE HCL 37.5 MG E.R. CAPSULE PO SCH (10:16)
[2021-05-09] MEDS: CHOLECALCIFEROL (VIT D3) 1,000 UNIT (25 MCG) TABLET PO SCH (10:16)
[2021-05-09] MEDS: oxyCODONE HCL 5 MG TABLET PO PRN ×2 (10:16→15:50)
[2021-05-09] MEDS: ACETAMINOPHEN 325 MG TABLET (FP) PO PRN ×2 (10:17→15:51)
[2021-05-09] MEDS: POLYETHYLENE GLYCOL (HEALTHYLAX) 3350 17 GM PACKET PO SCH (10:18)
[2021-05-09] MEDS: ENOXAPARIN NA (PORCINE) 40 MG/0.4 ML DISP.SYRIN SQ SCH (10:18)
[2021-05-09] MEDS: CEFTRIAXONE 2 GM in DEXTROSE 5%-WATER 2 GM/100 ML BAG IVPB SCH (10:18)
[2021-05-09] MEDS: PANTOPRAZOLE 40 MG TABLET PO SCH (10:18)
[2021-05-09] MEDS: D5-1/2NS+10 MEQ KCL - 10 MEQ/1,000 ML INFUS.BAG IV SCH (10:25)
[2021-05-09] MEDS: AZITHROMYCIN IVPB 500 MG/250 ML BAG IVPB SCH (11:08)
[2021-05-09 19:47] VITALS: BMI 28.3
[2021-05-09] MEDS: guaiFENesin 600 MG TABLET.ER (FP) PO SCH (21:59)
[2021-05-10] MEDS: D5-1/2NS+10 MEQ KCL - 10 MEQ/1,000 ML INFUS.BAG IV SCH (03:38)
[2021-05-10] MEDS: GABAPENTIN 100 MG CAPSULE PO SCH ×3 (06:08→21:32)
[2021-05-10] MEDS: ACETAMINOPHEN 325 MG TABLET (FP) PO PRN ×2 (06:20→22:33)
[2021-05-10] MEDS: oxyCODONE HCL 5 MG TABLET PO PRN ×2 (06:21→22:32)
[2021-05-10 07:52] LABS: BASO % 0.3 % (0-2.0); EOS % 0.7 % (0-4.5); LYMPH % 5.8 % (8-40); MCH 25.7 pg (25.7-33.7); MCHC 33.2 g/dl (32.0-36.0); MEAN CELL VOLUME 77.4 fl (80-96); MEAN PLT VOLUME 8.4 fl (7.5-11.1); MONO % 9.9 % (3.8-10.2); NEUT % 83.3 % (42.8-82.8); PLATELET COUNT 195 10^3/uL (134-434); RBC 4.27 M/mm3 (3.60-5.2); RDW 13.8 % (11.6-15.6); WHITE BLOOD COUNT 11.4 K/mm3 (4.0-10.0)
[2021-05-10 07:58] LABS: CALCIUM 8.5 mg/dL (8.5-10.1)
[2021-05-10 07:59] LABS: BLOOD UREA NITROGEN 13.5 mg/dL (7-18)
[2021-05-10 08:02] LABS: CREATININE 0.5 mg/dL (0.55-1.3)
[2021-05-10] MEDS ORDERED: D5-1/2NS+10 MEQ KCL - 10 MEQ/1,000 ML INFUS.BAG IV SCH (09:13)
[2021-05-10] MEDS ORDERED: POTASSIUM CHLORIDE 10 MEQ in DEXTROSE 5%-NORMAL SALINE 1,000 ML IVPB SCH (09:30)
[2021-05-10] MEDS ORDERED: DEXTROSE 5%-WATER 100 ML IVPB ONE (09:44)
[2021-05-10] MEDS: AZITHROMYCIN IVPB 500 MG/250 ML BAG IVPB SCH (10:03)
[2021-05-10] MEDS: CEFTRIAXONE 2 GM in DEXTROSE 5%-WATER 2 GM/100 ML BAG IVPB SCH (10:03)
[2021-05-10] MEDS: POLYETHYLENE GLYCOL (HEALTHYLAX) 3350 17 GM PACKET PO SCH (10:03)
[2021-05-10] MEDS: VENLAFAXINE HCL 37.5 MG E.R. CAPSULE PO SCH (10:04)
[2021-05-10] MEDS: LOSARTAN POTASSIUM 50 MG TABLET PO SCH (10:04)
[2021-05-10] MEDS: guaiFENesin 600 MG TABLET.ER (FP) PO SCH ×2 (10:04→21:29)
[2021-05-10] MEDS: CHOLECALCIFEROL (VIT D3) 1,000 UNIT (25 MCG) TABLET PO SCH (10:04)
[2021-05-10] MEDS: PANTOPRAZOLE 40 MG TABLET PO SCH (10:04)
[2021-05-10] MEDS: OMEGA-3 ACID ETHYL ESTERS (FATTY-ACIDS) 1 GM CAPSULE (FP) PO SCH (10:05)
[2021-05-10] MEDS: ENOXAPARIN NA (PORCINE) 40 MG/0.4 ML DISP.SYRIN SQ SCH (10:05)
[2021-05-10] MEDS: POTASSIUM CHLORIDE 10 MEQ in DEXTROSE 5%-NORMAL SALINE 1,000 ML IVPB SCH (13:10)
[2021-05-11] MEDS: GABAPENTIN 100 MG CAPSULE PO SCH ×3 (06:00→21:25)
[2021-05-11] MEDS: POTASSIUM CHLORIDE 10 MEQ in DEXTROSE 5%-NORMAL SALINE 1,000 ML IVPB SCH ×2 (06:19→08:45)
[2021-05-11] MEDS ORDERED: DEXTROSE 5%-WATER 100 ML IVPB ONE (08:30)
[2021-05-11] MEDS: ACETAMINOPHEN 325 MG TABLET (FP) PO PRN ×2 (08:41→18:00)
[2021-05-11] MEDS: oxyCODONE HCL 5 MG TABLET PO PRN ×2 (08:42→17:59)
[2021-05-11] MEDS: CHOLECALCIFEROL (VIT D3) 1,000 UNIT (25 MCG) TABLET PO SCH (08:59)
[2021-05-11] MEDS: POLYETHYLENE GLYCOL (HEALTHYLAX) 3350 17 GM PACKET PO SCH (08:59)
[2021-05-11] MEDS: guaiFENesin 600 MG TABLET.ER (FP) PO SCH ×2 (08:59→21:25)
[2021-05-11] MEDS: PANTOPRAZOLE 40 MG TABLET PO SCH (08:59)
[2021-05-11] MEDS: CEFTRIAXONE 2 GM in DEXTROSE 5%-WATER 2 GM/100 ML BAG IVPB SCH (09:00)
[2021-05-11] MEDS: AZITHROMYCIN IVPB 500 MG/250 ML BAG IVPB SCH (09:01)
[2021-05-11] MEDS: LOSARTAN POTASSIUM 50 MG TABLET PO SCH (09:04)
[2021-05-11] MEDS: ENOXAPARIN NA (PORCINE) 40 MG/0.4 ML DISP.SYRIN SQ SCH (09:06)
[2021-05-11] MEDS ORDERED: PT OWN MED DRAWER 7, Y5N ONE (09:07)
[2021-05-11] MEDS: VENLAFAXINE HCL 37.5 MG E.R. CAPSULE PO SCH (09:08)
[2021-05-11] MEDS: OMEGA-3 ACID ETHYL ESTERS (FATTY-ACIDS) 1 GM CAPSULE (FP) PO SCH (09:08)
[2021-05-11 11:45] LABS: BASO % 0.3 % (0-2.0); EOS % 1.7 % (0-4.5); HEMATOCRIT 30.4 % (32.4-45.2); HEMOGLOBIN 9.9 GM/dL (10.7-15.3); LYMPH % 7.9 % (8-40); MCH 25.8 pg (25.7-33.7); MCHC 32.7 g/dl (32.0-36.0); MEAN PLT VOLUME 8.3 fl (7.5-11.1); MONO % 9.8 % (3.8-10.2); NEUT % 80.3 % (42.8-82.8); PLATELET COUNT 213 10^3/uL (134-434); RBC 3.85 M/mm3 (3.60-5.2); RDW 13.8 % (11.6-15.6); WHITE BLOOD COUNT 7.5 K/mm3 (4.0-10.0)
[2021-05-11 12:11] LABS: CALCIUM 8.3 mg/dL (8.5-10.1)
[2021-05-11 12:12] LABS: BLOOD UREA NITROGEN 14.8 mg/dL (7-18)
[2021-05-11 12:15] LABS: CREATININE 0.5 mg/dL (0.55-1.3)
[2021-05-11] MEDS ORDERED: MINERAL OIL ENEMA 133 ML ENEMA PR ONE (15:32)
[2021-05-11] MEDS: ALBUTEROL SO4 2.5/IPRATROPIUM 0.5 INH SOL 3 ML VIAL.NEB. NEB PRN (20:46)
[2021-05-12] MEDS: oxyCODONE HCL 5 MG TABLET PO PRN ×4 (05:20→23:28)
[2021-05-12] MEDS: POTASSIUM CHLORIDE 10 MEQ in DEXTROSE 5%-NORMAL SALINE 1,000 ML IVPB SCH ×3 (05:20→21:30)
[2021-05-12] MEDS: GABAPENTIN 100 MG CAPSULE PO SCH ×3 (05:20→22:41)
[2021-05-12] MEDS: ACETAMINOPHEN 325 MG TABLET (FP) PO PRN ×4 (05:21→23:30)
[2021-05-12 09:43] LABS: BASO % 0.3 % (0-2.0); EOS % 2.8 % (0-4.5); HEMATOCRIT 31.5 % (32.4-45.2); HEMOGLOBIN 10.4 GM/dL (10.7-15.3); LYMPH % 10.1 % (8-40); MCHC 32.9 g/dl (32.0-36.0); MEAN PLT VOLUME 8.4 fl (7.5-11.1); MONO % 10.6 % (3.8-10.2); NEUT % 76.2 % (42.8-82.8); PLATELET COUNT 256 10^3/uL (134-434); RBC 3.98 M/mm3 (3.60-5.2); WHITE BLOOD COUNT 7.8 K/mm3 (4.0-10.0)
[2021-05-12] MEDS ORDERED: IRON SUCROSE INJECTION 200 MG in SODIUM CHLORIDE 90 ML IVPB ONE (10:00)
[2021-05-12 10:06] LABS: CALCIUM 8.5 mg/dL (8.5-10.1)
[2021-05-12 10:07] LABS: BLOOD UREA NITROGEN 16.6 mg/dL (7-18)
[2021-05-12 10:10] LABS: CREATININE 0.5 mg/dL (0.55-1.3)
[2021-05-12] MEDS ORDERED: DEXTROSE 5%-WATER 100 ML IVPB ONE (10:10)
[2021-05-12] MEDS: ALBUTEROL SO4 2.5/IPRATROPIUM 0.5 INH SOL 3 ML VIAL.NEB. NEB PRN ×2 (10:11→22:58)
[2021-05-12] MEDS: PANTOPRAZOLE 40 MG TABLET PO SCH (10:23)
[2021-05-12] MEDS: LOSARTAN POTASSIUM 50 MG TABLET PO SCH (10:23)
[2021-05-12] MEDS: CHOLECALCIFEROL (VIT D3) 1,000 UNIT (25 MCG) TABLET PO SCH (10:23)
[2021-05-12] MEDS: guaiFENesin 600 MG TABLET.ER (FP) PO SCH ×2 (10:24→22:42)
[2021-05-12] MEDS: AZITHROMYCIN IVPB 500 MG/250 ML BAG IVPB SCH (10:25)
[2021-05-12] MEDS: ENOXAPARIN NA (PORCINE) 40 MG/0.4 ML DISP.SYRIN SQ SCH (10:25)
[2021-05-12] MEDS ORDERED: PT OWN MED DRAWER 7, Y5N ONE (10:33)
[2021-05-12] MEDS: VENLAFAXINE HCL 37.5 MG E.R. CAPSULE PO SCH (10:34)
[2021-05-12] MEDS: POLYETHYLENE GLYCOL (HEALTHYLAX) 3350 17 GM PACKET PO SCH (10:35)
[2021-05-12] MEDS: OMEGA-3 ACID ETHYL ESTERS (FATTY-ACIDS) 1 GM CAPSULE (FP) PO SCH (10:35)
[2021-05-12] MEDS: CEFTRIAXONE 2 GM in DEXTROSE 5%-WATER 2 GM/100 ML BAG IVPB SCH (12:58)
[2021-05-13] MEDS: GABAPENTIN 100 MG CAPSULE PO SCH ×3 (05:24→21:02)
[2021-05-13] MEDS: ACETAMINOPHEN 325 MG TABLET (FP) PO PRN ×2 (06:56→21:15)
[2021-05-13] MEDS ORDERED: DEXTROSE 5%-WATER 100 ML IVPB ONE (12:02)
[2021-05-13] MEDS: CHOLECALCIFEROL (VIT D3) 1,000 UNIT (25 MCG) TABLET PO SCH (12:03)
[2021-05-13] MEDS: guaiFENesin 600 MG TABLET.ER (FP) PO SCH ×2 (12:03→21:01)
[2021-05-13] MEDS: LOSARTAN POTASSIUM 50 MG TABLET PO SCH (12:04)
[2021-05-13] MEDS: ENOXAPARIN NA (PORCINE) 40 MG/0.4 ML DISP.SYRIN SQ SCH (12:04)
[2021-05-13] MEDS: CEFTRIAXONE 2 GM in DEXTROSE 5%-WATER 2 GM/100 ML BAG IVPB SCH (12:04)
[2021-05-13] MEDS: PANTOPRAZOLE 40 MG TABLET PO SCH (12:04)
[2021-05-13] MEDS: POLYETHYLENE GLYCOL (HEALTHYLAX) 3350 17 GM PACKET PO SCH (12:05)
[2021-05-13] MEDS ORDERED: PT OWN MED DRAWER 7, Y5N ONE (12:07)
[2021-05-13] MEDS: VENLAFAXINE HCL 37.5 MG E.R. CAPSULE PO SCH (12:11)
[2021-05-13] MEDS: OMEGA-3 ACID ETHYL ESTERS (FATTY-ACIDS) 1 GM CAPSULE (FP) PO SCH (12:11)
[2021-05-13 13:27] LABS: HEMATOCRIT 33.4 % (32.4-45.2); HEMOGLOBIN 11.2 GM/dL (10.7-15.3); MCH 26.5 pg (25.7-33.7); MCHC 33.5 g/dl (32.0-36.0); MEAN CELL VOLUME 79.1 fl (80-96); MEAN PLT VOLUME 7.9 fl (7.5-11.1); PLATELET COUNT 287 10^3/uL (134-434); RBC 4.22 M/mm3 (3.60-5.2)
[2021-05-13] MEDS: AZITHROMYCIN IVPB 500 MG/250 ML BAG IVPB SCH (13:30)
[2021-05-13 13:51] LABS: CALCIUM 8.5 mg/dL (8.5-10.1)
[2021-05-13 13:52] LABS: BLOOD UREA NITROGEN 13.1 mg/dL (7-18)
[2021-05-13 13:55] LABS: CREATININE 0.5 mg/dL (0.55-1.3)
[2021-05-13 14:10] LABS: WHITE BLOOD COUNT 9.6 K/mm3 (4.0-10.0)
[2021-05-13 14:12] LABS: ANISOCYTOSIS 0; MACROCYTOSIS 0; PLATELET ESTIMATE NORMAL
[2021-05-13] MEDS: ALBUTEROL SO4 2.5/IPRATROPIUM 0.5 INH SOL 3 ML VIAL.NEB. NEB PRN (15:09)
[2021-05-13] MEDS ORDERED: DEXTROSE 5%-NORMAL SALINE 1,000 ML IV SCH (15:30)
[2021-05-13] MEDS: oxyCODONE HCL 5 MG TABLET PO PRN (21:13)
[2021-05-14] MEDS: ALBUTEROL SO4 2.5/IPRATROPIUM 0.5 INH SOL 3 ML VIAL.NEB. NEB PRN ×2 (05:24→22:05)
[2021-05-14] MEDS: GABAPENTIN 100 MG CAPSULE PO SCH ×2 (05:24→13:10)
[2021-05-14 07:56] LABS: HEMATOCRIT 33.2 % (32.4-45.2); HEMOGLOBIN 11.1 GM/dL (10.7-15.3); MCH 26.2 pg (25.7-33.7); MCHC 33.4 g/dl (32.0-36.0); MEAN CELL VOLUME 78.4 fl (80-96); MEAN PLT VOLUME 7.6 fl (7.5-11.1); PLATELET COUNT 280 10^3/uL (134-434); RBC 4.23 M/mm3 (3.60-5.2); RDW 14.1 % (11.6-15.6)
[2021-05-14 08:15] LABS: CALCIUM 8.9 mg/dL (8.5-10.1)
[2021-05-14 08:16] LABS: BLOOD UREA NITROGEN 13.9 mg/dL (7-18)
[2021-05-14 08:19] LABS: CREATININE 0.5 mg/dL (0.55-1.3)
[2021-05-14 09:20] LABS: ANISOCYTOSIS 0; HELMET CELLS 0; HOWELL-JOLLY BODIES 0; MACROCYTOSIS 0; OVALOCYTE 0; PLATELET ESTIMATE NORMAL; ROULEAU 0; SICKELED CELLS 0; TARGET CELLS 0; TEAR DROP CELLS 0; TOXIC GRANULATION 0
[2021-05-14] MEDS ORDERED: DEXTROSE 5%-WATER 100 ML IVPB ONE (10:46)
[2021-05-14] MEDS: CEFTRIAXONE 2 GM in DEXTROSE 5%-WATER 2 GM/100 ML BAG IVPB SCH (11:05)
[2021-05-14] MEDS: CHOLECALCIFEROL (VIT D3) 1,000 UNIT (25 MCG) TABLET PO SCH (11:06)
[2021-05-14] MEDS: LOSARTAN POTASSIUM 50 MG TABLET PO SCH (11:06)
[2021-05-14] MEDS: POLYETHYLENE GLYCOL (HEALTHYLAX) 3350 17 GM PACKET PO SCH (11:07)
[2021-05-14] MEDS: PANTOPRAZOLE 40 MG TABLET PO SCH (11:07)
[2021-05-14] MEDS: guaiFENesin 600 MG TABLET.ER (FP) PO SCH ×2 (11:07→22:44)
[2021-05-14] MEDS: ENOXAPARIN NA (PORCINE) 40 MG/0.4 ML DISP.SYRIN SQ SCH (11:08)
[2021-05-14] MEDS ORDERED: PT OWN MED DRAWER 7, Y5N ONE (11:16)
[2021-05-14] MEDS: VENLAFAXINE HCL 37.5 MG E.R. CAPSULE PO SCH (11:17)
[2021-05-14] MEDS: OMEGA-3 ACID ETHYL ESTERS (FATTY-ACIDS) 1 GM CAPSULE (FP) PO SCH (11:17)
[2021-05-14] MEDS: ACETAMINOPHEN 325 MG TABLET (FP) PO PRN ×2 (13:07→22:44)
[2021-05-14] MEDS: oxyCODONE HCL 5 MG TABLET PO PRN ×2 (13:09→22:55)
[2021-05-14] MEDS: AZITHROMYCIN IVPB 500 MG/250 ML BAG IVPB SCH (18:42)
[2021-05-14] MEDS ORDERED: GABAPENTIN 300 MG CAPSULE PO SCH (22:00)
[2021-05-14] MEDS: GABAPENTIN 300 MG CAPSULE PO SCH (22:44)
[2021-05-15] MEDS: GABAPENTIN 300 MG CAPSULE PO SCH ×3 (06:55→21:08)
[2021-05-15] MEDS: oxyCODONE HCL 5 MG TABLET PO PRN ×3 (07:06→18:37)
[2021-05-15] MEDS: ACETAMINOPHEN 325 MG TABLET (FP) PO PRN ×3 (07:07→21:07)
[2021-05-15 07:58] LABS: HEMATOCRIT 32.5 % (32.4-45.2); HEMOGLOBIN 10.6 GM/dL (10.7-15.3); MCH 25.8 pg (25.7-33.7); MCHC 32.5 g/dl (32.0-36.0); MEAN CELL VOLUME 79.6 fl (80-96); MEAN PLT VOLUME 7.8 fl (7.5-11.1); PLATELET COUNT 305 10^3/uL (134-434); RBC 4.09 M/mm3 (3.60-5.2); RDW 13.9 % (11.6-15.6); WHITE BLOOD COUNT 7.8 K/mm3 (4.0-10.0)
[2021-05-15] MEDS: CEFUROXIME AXETIL 250 MG TABLET PO SCH ×2 (10:00→21:07)
[2021-05-15] MEDS: LOSARTAN POTASSIUM 50 MG TABLET PO SCH (10:00)
[2021-05-15] MEDS: PANTOPRAZOLE 40 MG TABLET PO SCH (10:00)
[2021-05-15] MEDS: CHOLECALCIFEROL (VIT D3) 1,000 UNIT (25 MCG) TABLET PO SCH (10:00)
[2021-05-15] MEDS: guaiFENesin 600 MG TABLET.ER (FP) PO SCH ×2 (10:00→21:07)
[2021-05-15] MEDS: POLYETHYLENE GLYCOL (HEALTHYLAX) 3350 17 GM PACKET PO SCH (10:01)
[2021-05-15] MEDS: ENOXAPARIN NA (PORCINE) 40 MG/0.4 ML DISP.SYRIN SQ SCH (10:01)
[2021-05-15] MEDS: OMEGA-3 ACID ETHYL ESTERS (FATTY-ACIDS) 1 GM CAPSULE (FP) PO SCH (10:05)
[2021-05-15] MEDS: VENLAFAXINE HCL 37.5 MG E.R. CAPSULE PO SCH (10:05)
[2021-05-15] MEDS ORDERED: MINERAL OIL ENEMA 133 ML ENEMA RC ONE (13:15)
[2021-05-15 14:27] LABS: ANISOCYTOSIS 0; MACROCYTOSIS 0; PLATELET ESTIMATE NORMAL
[2021-05-16] MEDS: GABAPENTIN 300 MG CAPSULE PO SCH (06:45)
[2021-05-16] MEDS: ACETAMINOPHEN 325 MG TABLET (FP) PO PRN (06:45)
[2021-05-16] MEDS: oxyCODONE HCL 5 MG TABLET PO PRN (06:53)
[2021-05-16] MEDS ORDERED: PT OWN MED DRAWER 7, Y5N ONE (09:06)
[2021-05-16] MEDS: LOSARTAN POTASSIUM 50 MG TABLET PO SCH (09:09)
[2021-05-16] MEDS: OMEGA-3 ACID ETHYL ESTERS (FATTY-ACIDS) 1 GM CAPSULE (FP) PO SCH (09:09)
[2021-05-16] MEDS: CEFUROXIME AXETIL 250 MG TABLET PO SCH (09:09)
[2021-05-16] MEDS: PANTOPRAZOLE 40 MG TABLET PO SCH (09:09)
[2021-05-16] MEDS: guaiFENesin 600 MG TABLET.ER (FP) PO SCH (09:09)
[2021-05-16] MEDS: POLYETHYLENE GLYCOL (HEALTHYLAX) 3350 17 GM PACKET PO SCH (09:09)
[2021-05-16] MEDS: ENOXAPARIN NA (PORCINE) 40 MG/0.4 ML DISP.SYRIN SQ SCH (09:10)
[2021-05-16] MEDS: VENLAFAXINE HCL 37.5 MG E.R. CAPSULE PO SCH (09:10)
[2021-05-16] MEDS: CHOLECALCIFEROL (VIT D3) 1,000 UNIT (25 MCG) TABLET PO SCH (10:26)
[2021-05-16 10:55] VITALS: BP 115/66; PULSE 68; TEMP 99
== END 2021-05-16 11:40 | disposition home health service (06) | DRG 871 ==
LOC: JER 13:10 → JERBED 16:59 → J7W 21:44
PROVIDERS: ADMIT Internal Medicine; ATTEND Internal Medicine
PROC: 0S9C3ZX Drainage of Right Knee Joint, Percutaneous Approach, Diagnostic (ICD-10-PCS; principal; 2021-05-10)
DX: A41.89 Other specified sepsis (principal); J18.9 Pneumonia, unspecified organism; J44.1 Chronic obstructive pulmonary disease with (acute) exacerbation; J44.0 Chronic obstructive pulmonary disease with (acute) lower respiratory infection; E24.9 Cushing's syndrome, unspecified; E87.1 Hypo-osmolality and hyponatremia; E78.5 Hyperlipidemia, unspecified; I10 Essential (primary) hypertension; M25.561 Pain in right knee; M06.9 Rheumatoid arthritis, unspecified; F41.8 Other specified anxiety disorders; R09.02 Hypoxemia; D72.829 Elevated white blood cell count, unspecified; J20.9 Acute bronchitis, unspecified; M25.461 Effusion, right knee; D50.0 Iron deficiency anemia secondary to blood loss (chronic); M19.072 Primary osteoarthritis, left ankle and foot; M17.11 Unilateral primary osteoarthritis, right knee; M62.81 Muscle weakness (generalized); R06.2 Wheezing; R26.2 Difficulty in walking, not elsewhere classified; Z96.611 Presence of right artificial shoulder joint; Z95.0 Presence of cardiac pacemaker
CPT/HCPCS: 36415; 71045-TC-FY; 73562-TC-RT-FY; 73630-TC-LT; 80048; 80053; 81003; 82728; 82962; 83540; 83550; 83605; 83880; 84484; 85025; 85610; 85730; 87040; 87070; 87075; 87086; 87205; 93005; 93010; 93971-TC; 94640; 97116-GP; 97162-GP; 99285-25; C9803; J0131; J1756; U0003; U0005

== ENCOUNTER 2021-05-23 06:09 | Emergency (ER) | payer OTHER, MEDICARE ==
[2021-05-23 07:15] VITALS: BMI 27.3
[2021-05-23] MEDS ORDERED: ALBUTEROL SO4 2.5/IPRATROPIUM 0.5 INH SOL 3 ML VIAL.NEB. NEB ONE ×2 (08:47→09:13)
[2021-05-23 09:37] LABS: BASO % 0.4 % (0-2.0); EOS % 0.5 % (0-4.5); HEMATOCRIT 36.2 % (32.4-45.2); HEMOGLOBIN 11.9 GM/dL (10.7-15.3); MCH 25.8 pg (25.7-33.7); MCHC 32.8 g/dl (32.0-36.0); MEAN CELL VOLUME 78.7 fl (80-96); MEAN PLT VOLUME 7.8 fl (7.5-11.1); MONO % 6.3 % (3.8-10.2); NEUT % 82.8 % (42.8-82.8); PLATELET COUNT 248 10^3/uL (134-434); RDW 14.5 % (11.6-15.6); WHITE BLOOD COUNT 13.1 K/mm3 (4.0-10.0)
[2021-05-23 10:02] LABS: CHLORIDE 100 mmol/L (98-107); SODIUM 134 mmol/L (136-145)
[2021-05-23 10:04] LABS: ANION GAP 8 MMOL/L (8-16); CO2 26 mmol/L (21-32)
[2021-05-23 10:07] LABS: ALBUMIN 3.4 g/dl (3.4-5.0); CALCIUM 8.5 mg/dL (8.5-10.1)
[2021-05-23 10:08] LABS: BLOOD UREA NITROGEN 13.7 mg/dL (7-18); GLUCOSE,RANDOM 89 mg/dL (74-106); SGPT/ALT 35 U/L (13-61)
[2021-05-23 10:10] LABS: ALK PHOS 69 U/L (45-117); CREATININE 0.5 mg/dL (0.55-1.3); SGOT/AST 25 U/L (15-37)
[2021-05-23 10:16] LABS: N-TERMINAL BNP 150.2 pg/ml (5-450)
[2021-05-23 10:42] LABS: BILIRUBIN,TOTAL 0.3 mg/dL (0.2-1)
[2021-05-23 11:23] VITALS: TEMP 98.2
[2021-05-23 16:15] VITALS: BP 134/49; PULSE 71
== END 2021-05-23 20:44 | disposition home or self-care (01) ==
LOC: JER 06:09
PROC: 3E0F7GC Introduction of Other Therapeutic Substance into Respiratory Tract, Via Natural or Artificial Opening (ICD-10-PCS; principal; 2021-05-23)
DX: R06.02 Shortness of breath (principal)
CPT/HCPCS: 36415; 71045-TC-FY; 80053; 82550; 83880; 84484; 85025; 93005; 93010; 99285-25; C9803; U0003; U0005

== ENCOUNTER 2022-07-01 05:29 | Inpatient (IN) | payer OTHER, MEDICARE ==
[2022-07-01 05:42] VITALS: BMI 34.2
[2022-07-01 07:06] LABS: BASO % 0.3 % (0-2.0); EOS % 0.2 % (0-4.5); HEMATOCRIT 37.8 % (32.4-45.2); HEMOGLOBIN 11.9 GM/dL (10.7-15.3); LYMPH % 16.3 % (8-40); MCH 24.3 pg (25.7-33.7); MCHC 31.6 g/dl (32.0-36.0); MEAN CELL VOLUME 77.1 fl (80-96); MEAN PLT VOLUME 8.1 fl (7.5-11.1); MONO % 4.7 % (3.8-10.2); NEUT % 78.5 % (42.8-82.8); PLATELET COUNT 244 10^3/uL (134-434); RDW 14.5 % (11.6-15.6); WHITE BLOOD COUNT 11.1 K/mm3 (4.0-10.0)
[2022-07-01 07:08] LABS: VENOUS BASE EXCESS -0.5 mmol/L (-2-2); VENOUS O2 SATURATION 74.2 % (70-80); VENOUS PCO2 51.7 mmHg (38-52); VENOUS PH 7.323 (7.310-7.410)
[2022-07-01 07:13] LABS: INR 1.08 (0.83-1.09); PROTHROMBIN TIME (PATIENT) 12.4 SEC (9.7-13.0)
[2022-07-01 07:25] LABS: CALCIUM 8.9 mg/dL (8.5-10.1)
[2022-07-01 07:27] LABS: ALBUMIN 3.4 g/dl (3.4-5.0); BLOOD UREA NITROGEN 18.7 mg/dL (7-18)
[2022-07-01 07:30] LABS: CREATININE 0.6 mg/dL (0.55-1.3)
[2022-07-01 07:31] LABS: BILIRUBIN,TOTAL 0.3 mg/dL (0.2-1); TOT PROT 7.4 g/dl (6.4-8.2)
[2022-07-01] MEDS ORDERED: FUROSEMIDE 40 MG/4 ML INJECTABLE VIAL IVPUSH ONE (07:41)
[2022-07-01 08:10] LABS: N-TERMINAL BNP 151.8 pg/ml (5-450)
[2022-07-01] MEDS ORDERED: FUROSEMIDE 40 MG/4 ML INJECTABLE VIAL ONE (09:18)
[2022-07-01] MEDS ORDERED: ALBUTEROL SO4 2.5/IPRATROPIUM 0.5 INH SOL 3 ML VIAL.NEB. NEB ONE (12:01)
[2022-07-01] MEDS: ALBUTEROL SO4 2.5/IPRATROPIUM 0.5 INH SOL 3 ML VIAL.NEB. NEB PRN (12:04)
[2022-07-01] MEDS ORDERED: ENOXAPARIN NA (PORCINE) 40 MG/0.4 ML DISP.SYRIN SQ ONE (12:06)
[2022-07-01] MEDS ORDERED: LOSARTAN POTASSIUM 50 MG TABLET ONE (12:06)
[2022-07-01] MEDS ORDERED: PANTOPRAZOLE 40 MG TABLET PO ONE (12:06)
[2022-07-01] MEDS ORDERED: FOLIC ACID 1 MG TABLET (FP) ONE (12:06)
[2022-07-01] MEDS: FOLIC ACID 1 MG TABLET (FP) PO SCH (12:46)
[2022-07-01] MEDS: LOSARTAN POTASSIUM 50 MG TABLET PO SCH (12:46)
[2022-07-01] MEDS: VENLAFAXINE HCL 37.5 MG E.R. CAPSULE PO SCH (12:46)
[2022-07-01] MEDS: PANTOPRAZOLE 40 MG TABLET PO SCH (12:47)
[2022-07-01] MEDS: CHOLECALCIFEROL (VIT D3) 5000 UNITS (125 MCG) CAP PO SCH (12:47)
[2022-07-01] MEDS: ENOXAPARIN NA (PORCINE) 40 MG/0.4 ML DISP.SYRIN SQ SCH (12:47)
[2022-07-01] MEDS: OMEGA-3 ACID ETHYL ESTERS (FATTY-ACIDS) 1 GM CAPSULE (FP) PO SCH (12:47)
[2022-07-01] MEDS: POLYETHYLENE GLYCOL (HEALTHYLAX) 3350 17 GM PACKET PO SCH (21:42)
[2022-07-02 06:46] LABS: BASO % 0.3 % (0-2.0); HEMATOCRIT 34.2 % (32.4-45.2); HEMOGLOBIN 11.3 GM/dL (10.7-15.3); LYMPH % 9.6 % (8-40); MCH 25.3 pg (25.7-33.7); MCHC 33.1 g/dl (32.0-36.0); MEAN CELL VOLUME 76.5 fl (80-96); MEAN PLT VOLUME 7.9 fl (7.5-11.1); MONO % 11.9 % (3.8-10.2); NEUT % 78.2 % (42.8-82.8); PLATELET COUNT 263 10^3/uL (134-434); RBC 4.47 M/mm3 (3.60-5.2); RDW 13.9 % (11.6-15.6); WHITE BLOOD COUNT 9.4 K/mm3 (4.0-10.0)
[2022-07-02 07:06] LABS: CALCIUM 8.8 mg/dL (8.5-10.1)
[2022-07-02 07:07] LABS: BLOOD UREA NITROGEN 28.2 mg/dL (7-18)
[2022-07-02 07:10] LABS: CREATININE 0.6 mg/dL (0.55-1.3)
[2022-07-02] MEDS ORDERED: FUROSEMIDE 40 MG/4 ML INJECTABLE VIAL IVPUSH ONE (07:55)
[2022-07-02] MEDS ORDERED: FUROSEMIDE 40 MG/4 ML INJECTABLE VIAL ONE (08:38)
[2022-07-02 11:24] LABS: EPI CELLS 8 /uL (0-25.1); HYALINE CASTS 1 /uL (0-3.1); PH,URINE 5.5 (5.0-8.0); URINE APPEARANCE CLEAR; URINE BACTERIA 73 /uL (0-1359); URINE BILIRUBIN NEGATIVE (NEGATIVE); URINE COLOR YELLOW; URINE GLUCOSE (UA) NEGATIVE (NEGATIVE); URINE KETONE NEGATIVE (NEGATIVE); URINE LEUK ESTERASE TRACE (NEGATIVE); URINE NITRITE NEGATIVE (NEGATIVE); URINE PROTEIN 1+ (NEGATIVE); URINE RBC 13 /uL (0-23.9); URINE UROBILINOGEN 0.2 mg/dL (0.2-1.0); URINE WBC 11 /uL (0-25.8)
[2022-07-02] MEDS ORDERED: PANTOPRAZOLE 40 MG TABLET PO ONE (11:37)
[2022-07-02] MEDS ORDERED: POLYETHYLENE GLYCOL (HEALTHYLAX) 3350 17 GM PACKET ONE (11:37)
[2022-07-02] MEDS ORDERED: ENOXAPARIN NA (PORCINE) 40 MG/0.4 ML DISP.SYRIN SQ ONE (11:38)
[2022-07-02] MEDS ORDERED: FOLIC ACID 1 MG TABLET (FP) ONE (11:38)
[2022-07-02] MEDS ORDERED: ALBUTEROL SO4 2.5/IPRATROPIUM 0.5 INH SOL 3 ML VIAL.NEB. NEB ONE (12:09)
[2022-07-02] MEDS: ALBUTEROL SO4 2.5/IPRATROPIUM 0.5 INH SOL 3 ML VIAL.NEB. NEB PRN (12:20)
[2022-07-02] MEDS: LOSARTAN POTASSIUM 50 MG TABLET PO SCH (12:47)
[2022-07-02] MEDS: VENLAFAXINE HCL 37.5 MG E.R. CAPSULE PO SCH (12:48)
[2022-07-02] MEDS: OMEGA-3 ACID ETHYL ESTERS (FATTY-ACIDS) 1 GM CAPSULE (FP) PO SCH (12:48)
[2022-07-02] MEDS: POLYETHYLENE GLYCOL (HEALTHYLAX) 3350 17 GM PACKET PO SCH (12:48)
[2022-07-02] MEDS: FOLIC ACID 1 MG TABLET (FP) PO SCH (12:48)
[2022-07-02] MEDS: ENOXAPARIN NA (PORCINE) 40 MG/0.4 ML DISP.SYRIN SQ SCH (12:49)
[2022-07-02] MEDS: PANTOPRAZOLE 40 MG TABLET PO SCH (12:49)
[2022-07-02] MEDS: CHOLECALCIFEROL (VIT D3) 5000 UNITS (125 MCG) CAP PO SCH (12:49)
[2022-07-02] MEDS ORDERED: LIDOCAINE 5% TOPICAL PATCH ONE (16:02)
[2022-07-02] MEDS: LIDOCAINE 5% TOPICAL PATCH TP SCH (16:07)
[2022-07-02] MEDS: RIVASTIGMINE 9.5 MG/24 HOURS TRANSDERMAL PATCH TD SCH (16:08)
[2022-07-02] MEDS ORDERED: ATORVASTATIN CA 20 MG TABLET (FP) ONE (21:09)
[2022-07-02] MEDS: ATORVASTATIN CA 20 MG TABLET (FP) PO SCH (21:16)
[2022-07-02] MEDS: LIDOCAINE PATCH REMOVAL MC SCH (21:16)
[2022-07-03 03:49] VITALS: RESP 18
[2022-07-03] MEDS: PNEUMOC 20-VAL CONJ-DIP CRM/PF 0.5 ML SYRINGE IM ONE ×2 (05:56→06:08)
[2022-07-03 08:22] LABS: BASO % 0.3 % (0-2.0); EOS % 0.1 % (0-4.5); HEMATOCRIT 36.6 % (32.4-45.2); HEMOGLOBIN 11.9 GM/dL (10.7-15.3); LYMPH % 13.6 % (8-40); MCH 24.9 pg (25.7-33.7); MCHC 32.6 g/dl (32.0-36.0); MEAN CELL VOLUME 76.4 fl (80-96); MEAN PLT VOLUME 7.8 fl (7.5-11.1); MONO % 10.4 % (3.8-10.2); NEUT % 75.6 % (42.8-82.8); PLATELET COUNT 257 10^3/uL (134-434); RDW 14.4 % (11.6-15.6); WHITE BLOOD COUNT 10.1 K/mm3 (4.0-10.0)
[2022-07-03 08:54] LABS: CALCIUM 9.3 mg/dL (8.5-10.1)
[2022-07-03 08:55] LABS: BLOOD UREA NITROGEN 28.6 mg/dL (7-18)
[2022-07-03 08:57] LABS: CREATININE 0.6 mg/dL (0.55-1.3)
[2022-07-03] MEDS: LIDOCAINE 5% TOPICAL PATCH TP SCH (10:43)
[2022-07-03] MEDS: ENOXAPARIN NA (PORCINE) 40 MG/0.4 ML DISP.SYRIN SQ SCH (10:44)
[2022-07-03] MEDS: LOSARTAN POTASSIUM 50 MG TABLET PO SCH (10:44)
[2022-07-03] MEDS: PANTOPRAZOLE 40 MG TABLET PO SCH (10:44)
[2022-07-03] MEDS: POLYETHYLENE GLYCOL (HEALTHYLAX) 3350 17 GM PACKET PO SCH (10:44)
[2022-07-03] MEDS: FOLIC ACID 1 MG TABLET (FP) PO SCH (10:44)
[2022-07-03] MEDS: OMEGA-3 ACID ETHYL ESTERS (FATTY-ACIDS) 1 GM CAPSULE (FP) PO SCH (10:45)
[2022-07-03] MEDS: VENLAFAXINE HCL 37.5 MG E.R. CAPSULE PO SCH (10:45)
[2022-07-03] MEDS: CHOLECALCIFEROL (VIT D3) 5000 UNITS (125 MCG) CAP PO SCH (10:45)
[2022-07-03] MEDS ORDERED: FUROSEMIDE 40 MG/4 ML INJECTABLE VIAL IVPUSH ONE ×2 (13:02→15:15)
[2022-07-03] MEDS: RIVASTIGMINE 9.5 MG/24 HOURS TRANSDERMAL PATCH TD SCH (19:27)
[2022-07-03] MEDS: ATORVASTATIN CA 20 MG TABLET (FP) PO SCH (21:08)
[2022-07-03] MEDS: LIDOCAINE PATCH REMOVAL MC SCH (21:12)
[2022-07-04] MEDS ORDERED: FUROSEMIDE 40 MG TABLET (FP) PO SCH (08:00)
[2022-07-04] MEDS: OMEGA-3 ACID ETHYL ESTERS (FATTY-ACIDS) 1 GM CAPSULE (FP) PO SCH (10:14)
[2022-07-04] MEDS: LIDOCAINE 5% TOPICAL PATCH TP SCH (10:15)
[2022-07-04] MEDS: PANTOPRAZOLE 40 MG TABLET PO SCH (10:15)
[2022-07-04] MEDS: POLYETHYLENE GLYCOL (HEALTHYLAX) 3350 17 GM PACKET PO SCH (10:15)
[2022-07-04] MEDS: ENOXAPARIN NA (PORCINE) 40 MG/0.4 ML DISP.SYRIN SQ SCH (10:15)
[2022-07-04] MEDS: VENLAFAXINE HCL 37.5 MG E.R. CAPSULE PO SCH (10:15)
[2022-07-04] MEDS: FOLIC ACID 1 MG TABLET (FP) PO SCH (10:15)
[2022-07-04] MEDS: LOSARTAN POTASSIUM 50 MG TABLET PO SCH (10:15)
[2022-07-04] MEDS: CHOLECALCIFEROL (VIT D3) 5000 UNITS (125 MCG) CAP PO SCH (10:16)
[2022-07-04] MEDS: RIVASTIGMINE 9.5 MG/24 HOURS TRANSDERMAL PATCH TD SCH (17:02)
[2022-07-04] MEDS: ATORVASTATIN CA 20 MG TABLET (FP) PO SCH (21:18)
[2022-07-04] MEDS: LIDOCAINE PATCH REMOVAL MC SCH ×2 (21:21→21:22)
[2022-07-04] MEDS ORDERED: POTASSIUM CHLORIDE ORAL LIQUID 20 MEQ/15 ML PO ONE (22:30)
[2022-07-05 08:56] VITALS: BP 137/50; PULSE 94; TEMP 97.9
[2022-07-05] MEDS: ENOXAPARIN NA (PORCINE) 40 MG/0.4 ML DISP.SYRIN SQ SCH (09:46)
[2022-07-05] MEDS: POLYETHYLENE GLYCOL (HEALTHYLAX) 3350 17 GM PACKET PO SCH (09:46)
[2022-07-05] MEDS: FOLIC ACID 1 MG TABLET (FP) PO SCH (09:46)
[2022-07-05] MEDS: LOSARTAN POTASSIUM 50 MG TABLET PO SCH (09:46)
[2022-07-05] MEDS: LIDOCAINE 5% TOPICAL PATCH TP SCH (09:46)
[2022-07-05] MEDS: PANTOPRAZOLE 40 MG TABLET PO SCH (09:46)
[2022-07-05] MEDS: OMEGA-3 ACID ETHYL ESTERS (FATTY-ACIDS) 1 GM CAPSULE (FP) PO SCH (09:47)
[2022-07-05] MEDS: VENLAFAXINE HCL 37.5 MG E.R. CAPSULE PO SCH (09:47)
[2022-07-05] MEDS: CHOLECALCIFEROL (VIT D3) 5000 UNITS (125 MCG) CAP PO SCH (09:48)
== END 2022-07-05 11:34 | disposition home or self-care (01) | DRG 291 ==
LOC: JER 05:29 → JERBED 07:40 → J4S 07-02 22:51
PROVIDERS: ADMIT Internal Medicine; ATTEND Internal Medicine
DX: I11.0 Hypertensive heart disease with heart failure (principal); I50.33 Acute on chronic diastolic (congestive) heart failure; J96.01 Acute respiratory failure with hypoxia; J81.0 Acute pulmonary edema; E87.1 Hypo-osmolality and hyponatremia; I69.354 Hemiplegia and hemiparesis following cerebral infarction affecting left non-dominant side; I47.20 Ventricular tachycardia, unspecified; E78.5 Hyperlipidemia, unspecified; J44.9 Chronic obstructive pulmonary disease, unspecified; Z95.0 Presence of cardiac pacemaker; D72.829 Elevated white blood cell count, unspecified; M06.9 Rheumatoid arthritis, unspecified; I35.0 Nonrheumatic aortic (valve) stenosis; E11.9 Type 2 diabetes mellitus without complications; F03.90 Unspecified dementia, unspecified severity, without behavioral disturbance, psychotic disturbance, mood disturbance, and anxiety; D50.9 Iron deficiency anemia, unspecified; E66.9 Obesity, unspecified; Z68.34 Body mass index [BMI] 34.0-34.9, adult; F32.A Depression, unspecified; F41.9 Anxiety disorder, unspecified
CPT/HCPCS: 0241U-QW; 36415; 71045-TC-FY; 71250-TC; 80048; 80053; 80061; 81003; 82607; 82803; 83036; 83605; 83735; 83880; 84439; 84443; 84481; 84484; 85025; 85610; 85730; 86850; 86900; 86901; 87040; 87086; 87186; 90677; 93005; 93010; 93306-TC; 94640; 94761; 97116-GP; 97161-GP; 99285-25; C9803-CS; U0003; U0005

== ENCOUNTER 2022-11-27 08:03 | Inpatient (IN) | payer OTHER, MEDICARE ==
[2022-11-27] MEDS ORDERED: ALBUTEROL SO4 2.5/IPRATROPIUM 0.5 INH SOL 3 ML VIAL.NEB. NEB ONE ×2 (08:27→08:29)
[2022-11-27] MEDS ORDERED: methylPREDNISolone NA SUCC 40 MG/1 ML VIAL IVPUSH ONE (08:51)
[2022-11-27 08:52] LABS: BASO % 0.6 % (0-2.0); EOS % 0.2 % (0-4.5); HEMATOCRIT 40.4 % (32.4-45.2); HEMOGLOBIN 13.2 GM/dL (10.7-15.3); LYMPH % 14.3 % (8-40); MCH 24.5 pg (25.7-33.7); MCHC 32.5 g/dl (32.0-36.0); MEAN CELL VOLUME 75.2 fl (80-96); MEAN PLT VOLUME 8.2 fl (7.5-11.1); NEUT % 75.9 % (42.8-82.8); PLATELET COUNT 203 10^3/uL (134-434); RBC 5.37 M/mm3 (3.60-5.2); RDW 15.5 % (11.6-15.6); WHITE BLOOD COUNT 7.4 K/mm3 (4.0-10.0)
[2022-11-27] MEDS ORDERED: methylPREDNISolone NA SUCC 40 MG/1 ML VIAL ONE (08:52)
[2022-11-27 08:59] VITALS: BMI 28.3
[2022-11-27 09:18] LABS: CALCIUM 9.1 mg/dL (8.5-10.1)
[2022-11-27 09:19] LABS: ALBUMIN 3.5 g/dl (3.4-5.0)
[2022-11-27 09:21] LABS: CREATININE 0.6 mg/dL (0.55-1.3)
[2022-11-27 09:23] LABS: BILIRUBIN,TOTAL 0.2 mg/dL (0.2-1); TOT PROT 7.7 g/dl (6.4-8.2)
[2022-11-27] MEDS ORDERED: ALBUTEROL SO4 0.083% IH SOL 2.5 MG/3 ML VIAL.NEB. NEB ONE ×2 (09:40→09:42)
[2022-11-27] MEDS ORDERED: ALBUTEROL SO4 2.5/IPRATROPIUM 0.5 INH SOL 3 ML VIAL.NEB. NEB PRN ×2 (10:44→12:46)
[2022-11-27] MEDS ORDERED: guaiFENesin 200 MG/10 ML 10 ML UNIT-DOSE CUPS PO PRN (12:46)
[2022-11-27] MEDS ORDERED: methylPREDNISolone NA SUCC 40 MG/1 ML VIAL IVPUSH SCH (13:00)
[2022-11-27] MEDS: GABAPENTIN 300 MG CAPSULE PO SCH ×2 (14:04→22:15)
[2022-11-27] MEDS: PANTOPRAZOLE 40 MG TABLET PO SCH (14:04)
[2022-11-27] MEDS: ENOXAPARIN NA (PORCINE) 40 MG/0.4 ML DISP.SYRIN SQ SCH (14:04)
[2022-11-27] MEDS: RIVASTIGMINE 9.5 MG/24 HOURS TRANSDERMAL PATCH TD SCH ×2 (14:28→16:43)
[2022-11-27] MEDS ORDERED: INSULIN (NOVOLOG) ASPART 100 UNITS/ML 10ML VIAL ONE (21:54)
[2022-11-27] MEDS: methylPREDNISolone NA SUCC 40 MG/1 ML VIAL IVPUSH SCH (22:15)
[2022-11-27] MEDS: ACETAMINOPHEN 325 MG TABLET (FP) PO PRN (22:45)
[2022-11-27] MEDS: BUDESONIDE/FORMETEROL FUMARATE 80/4.5 mcg INHALER IH SCH (22:48)
[2022-11-28] MEDS: GABAPENTIN 300 MG CAPSULE PO SCH ×3 (05:51→21:55)
[2022-11-28] MEDS ORDERED: VENLAFAXINE HCL 37.5 MG E.R. CAPSULE PO SCH (10:00)
[2022-11-28] MEDS: VENLAFAXINE HCL 75 MG E.R. CAPSULES PO SCH (10:33)
[2022-11-28] MEDS: ROFLUMILAST 500 MCG TABLET PO SCH (10:33)
[2022-11-28] MEDS: amLODIPine BESYLATE 10 MG TABLET (FP) PO SCH (10:34)
[2022-11-28] MEDS: FOLIC ACID 1 MG TABLET (FP) PO SCH (10:34)
[2022-11-28] MEDS: FUROSEMIDE 40 MG TABLET (FP) PO SCH (10:34)
[2022-11-28] MEDS: CHOLECALCIFEROL (VIT D3) 1,000 UNIT (25 MCG) TABLET PO SCH (10:35)
[2022-11-28] MEDS: PANTOPRAZOLE 40 MG TABLET PO SCH (10:36)
[2022-11-28] MEDS: LOSARTAN POTASSIUM 50 MG TABLET PO SCH (10:37)
[2022-11-28] MEDS: methylPREDNISolone NA SUCC 40 MG/1 ML VIAL IVPUSH SCH ×2 (10:39→21:55)
[2022-11-28] MEDS: ENOXAPARIN NA (PORCINE) 40 MG/0.4 ML DISP.SYRIN SQ SCH (10:39)
[2022-11-28] MEDS: BUDESONIDE/FORMETEROL FUMARATE 80/4.5 mcg INHALER IH SCH ×2 (10:49→21:56)
[2022-11-28] MEDS: ACETAMINOPHEN 325 MG TABLET (FP) PO PRN (10:55)
[2022-11-28 12:50] LABS: BASO % 0.1 % (0-2.0); HEMOGLOBIN 12.6 GM/dL (10.7-15.3); LYMPH % 10.5 % (8-40); MCH 23.5 pg (25.7-33.7); MCHC 32.2 g/dl (32.0-36.0); MEAN PLT VOLUME 8.8 fl (7.5-11.1); MONO % 10.6 % (3.8-10.2); NEUT % 78.8 % (42.8-82.8); PLATELET COUNT 234 10^3/uL (134-434); RBC 5.34 M/mm3 (3.60-5.2); RDW 15.3 % (11.6-15.6)
[2022-11-28] MEDS ORDERED: MINERAL OIL ENEMA 133 ML ENEMA RC ONE (13:13)
[2022-11-28 13:15] LABS: CALCIUM 9.5 mg/dL (8.5-10.1)
[2022-11-28 13:16] LABS: BLOOD UREA NITROGEN 22.7 mg/dL (7-18)
[2022-11-28 13:19] LABS: CREATININE 0.7 mg/dL (0.55-1.3)
[2022-11-28] MEDS: POLYETHYLENE GLYCOL (HEALTHYLAX) 3350 17 GM PACKET PO SCH ×2 (13:24→21:54)
[2022-11-28] MEDS: RIVASTIGMINE 9.5 MG/24 HOURS TRANSDERMAL PATCH TD SCH (13:24)
[2022-11-28] MEDS: ALBUTEROL SO4 2.5/IPRATROPIUM 0.5 INH SOL 3 ML VIAL.NEB. NEB PRN (14:18)
[2022-11-29] MEDS: GABAPENTIN 300 MG CAPSULE PO SCH ×3 (05:57→22:13)
[2022-11-29 08:13] LABS: HEMATOCRIT 39.8 % (32.4-45.2); HEMOGLOBIN 12.6 GM/dL (10.7-15.3); MCH 23.7 pg (25.7-33.7); MCHC 31.7 g/dl (32.0-36.0); MEAN CELL VOLUME 74.6 fl (80-96); MEAN PLT VOLUME 8.8 fl (7.5-11.1); PLATELET COUNT 239 10^3/uL (134-434); RBC 5.33 M/mm3 (3.60-5.2); RDW 15.3 % (11.6-15.6); WHITE BLOOD COUNT 18.9 K/mm3 (4.0-10.0)
[2022-11-29 08:29] LABS: CALCIUM 9.4 mg/dL (8.5-10.1)
[2022-11-29 08:30] LABS: BLOOD UREA NITROGEN 29.4 mg/dL (7-18)
[2022-11-29 08:35] LABS: CREATININE 0.8 mg/dL (0.55-1.3)
[2022-11-29 09:25] LABS: ANISOCYTOSIS 0; HELMET CELLS 0; HOWELL-JOLLY BODIES 0; MACROCYTOSIS 0; OVALOCYTE 0; ROULEAU 0; SICKELED CELLS 0; TARGET CELLS 0; TEAR DROP CELLS 0; TOXIC GRANULATION 0
[2022-11-29] MEDS: guaiFENesin 600 MG TABLET.ER (FP) PO SCH ×2 (10:20→22:13)
[2022-11-29] MEDS: LOSARTAN POTASSIUM 50 MG TABLET PO SCH (10:20)
[2022-11-29] MEDS: CHOLECALCIFEROL (VIT D3) 1,000 UNIT (25 MCG) TABLET PO SCH (10:20)
[2022-11-29] MEDS: VENLAFAXINE HCL 75 MG E.R. CAPSULES PO SCH (10:21)
[2022-11-29] MEDS: ENOXAPARIN NA (PORCINE) 40 MG/0.4 ML DISP.SYRIN SQ SCH (10:21)
[2022-11-29] MEDS: methylPREDNISolone NA SUCC 40 MG/1 ML VIAL IVPUSH SCH (10:21)
[2022-11-29] MEDS: amLODIPine BESYLATE 10 MG TABLET (FP) PO SCH (10:21)
[2022-11-29] MEDS: PANTOPRAZOLE 40 MG TABLET PO SCH (10:21)
[2022-11-29] MEDS: FOLIC ACID 1 MG TABLET (FP) PO SCH (10:21)
[2022-11-29] MEDS: ROFLUMILAST 500 MCG TABLET PO SCH (10:22)
[2022-11-29] MEDS: POLYETHYLENE GLYCOL (HEALTHYLAX) 3350 17 GM PACKET PO SCH ×2 (10:22→22:13)
[2022-11-29] MEDS: ACETAMINOPHEN 325 MG TABLET (FP) PO PRN (10:34)
[2022-11-29] MEDS: RIVASTIGMINE 9.5 MG/24 HOURS TRANSDERMAL PATCH TD SCH (12:01)
[2022-11-29] MEDS: ALBUTEROL SO4 2.5/IPRATROPIUM 0.5 INH SOL 3 ML VIAL.NEB. NEB PRN ×2 (14:27→21:33)
[2022-11-30] MEDS: GABAPENTIN 300 MG CAPSULE PO SCH ×3 (06:27→21:14)
[2022-11-30] MEDS: VENLAFAXINE HCL 75 MG E.R. CAPSULES PO SCH (09:37)
[2022-11-30] MEDS: ENOXAPARIN NA (PORCINE) 40 MG/0.4 ML DISP.SYRIN SQ SCH (09:37)
[2022-11-30] MEDS: amLODIPine BESYLATE 10 MG TABLET (FP) PO SCH (09:37)
[2022-11-30] MEDS: FOLIC ACID 1 MG TABLET (FP) PO SCH (09:38)
[2022-11-30] MEDS: guaiFENesin 600 MG TABLET.ER (FP) PO SCH ×2 (09:38→21:14)
[2022-11-30] MEDS: PANTOPRAZOLE 40 MG TABLET PO SCH (09:38)
[2022-11-30] MEDS: LOSARTAN POTASSIUM 50 MG TABLET PO SCH (09:38)
[2022-11-30] MEDS: CHOLECALCIFEROL (VIT D3) 1,000 UNIT (25 MCG) TABLET PO SCH (09:38)
[2022-11-30] MEDS: FUROSEMIDE 40 MG TABLET (FP) PO SCH (09:39)
[2022-11-30] MEDS: ROFLUMILAST 500 MCG TABLET PO SCH (09:39)
[2022-11-30] MEDS: methylPREDNISolone NA SUCC 40 MG/1 ML VIAL IVPUSH SCH (09:40)
[2022-11-30] MEDS: POLYETHYLENE GLYCOL (HEALTHYLAX) 3350 17 GM PACKET PO SCH ×2 (09:40→21:14)
[2022-11-30] MEDS: RIVASTIGMINE 9.5 MG/24 HOURS TRANSDERMAL PATCH TD SCH (11:28)
[2022-11-30] MEDS: ALBUTEROL SO4 2.5/IPRATROPIUM 0.5 INH SOL 3 ML VIAL.NEB. NEB PRN (12:11)
[2022-12-01 05:22] VITALS: RESP 18
[2022-12-01] MEDS: GABAPENTIN 300 MG CAPSULE PO SCH ×3 (05:36→21:34)
[2022-12-01] MEDS: ALBUTEROL SO4 2.5/IPRATROPIUM 0.5 INH SOL 3 ML VIAL.NEB. NEB PRN ×2 (07:21→18:34)
[2022-12-01] MEDS: amLODIPine BESYLATE 10 MG TABLET (FP) PO SCH (09:48)
[2022-12-01] MEDS: VENLAFAXINE HCL 75 MG E.R. CAPSULES PO SCH (09:48)
[2022-12-01] MEDS: PANTOPRAZOLE 40 MG TABLET PO SCH (09:48)
[2022-12-01] MEDS: LOSARTAN POTASSIUM 50 MG TABLET PO SCH (09:49)
[2022-12-01] MEDS: guaiFENesin 600 MG TABLET.ER (FP) PO SCH ×2 (09:49→21:34)
[2022-12-01] MEDS: FOLIC ACID 1 MG TABLET (FP) PO SCH (09:49)
[2022-12-01] MEDS: ENOXAPARIN NA (PORCINE) 40 MG/0.4 ML DISP.SYRIN SQ SCH (09:52)
[2022-12-01] MEDS: ROFLUMILAST 500 MCG TABLET PO SCH (09:52)
[2022-12-01] MEDS: CHOLECALCIFEROL (VIT D3) 1,000 UNIT (25 MCG) TABLET PO SCH (09:52)
[2022-12-01] MEDS: methylPREDNISolone NA SUCC 40 MG/1 ML VIAL IVPUSH SCH (09:52)
[2022-12-01] MEDS: POLYETHYLENE GLYCOL (HEALTHYLAX) 3350 17 GM PACKET PO SCH ×2 (09:52→21:34)
[2022-12-01 10:18] LABS: HEMATOCRIT 38.1 % (32.4-45.2); HEMOGLOBIN 12.3 GM/dL (10.7-15.3); MCH 23.9 pg (25.7-33.7); MCHC 32.2 g/dl (32.0-36.0); MEAN CELL VOLUME 74.3 fl (80-96); MEAN PLT VOLUME 8.8 fl (7.5-11.1); PLATELET COUNT 227 10^3/uL (134-434); RBC 5.13 M/mm3 (3.60-5.2); RDW 15.5 % (11.6-15.6); WHITE BLOOD COUNT 12.9 K/mm3 (4.0-10.0)
[2022-12-01 10:42] LABS: CALCIUM 8.9 mg/dL (8.5-10.1)
[2022-12-01 10:43] LABS: BLOOD UREA NITROGEN 24.5 mg/dL (7-18)
[2022-12-01 10:46] LABS: CREATININE 0.7 mg/dL (0.55-1.3)
[2022-12-01] MEDS: RIVASTIGMINE 9.5 MG/24 HOURS TRANSDERMAL PATCH TD SCH (13:05)
[2022-12-02] MEDS: GABAPENTIN 300 MG CAPSULE PO SCH ×2 (05:30→14:09)
[2022-12-02] MEDS ORDERED: BUDESONIDE/FORMETEROL FUMARATE 80/4.5 mcg INHALER IH SCH ×2 (06:14→10:00)
[2022-12-02] MEDS: ENOXAPARIN NA (PORCINE) 40 MG/0.4 ML DISP.SYRIN SQ SCH (09:22)
[2022-12-02] MEDS: POLYETHYLENE GLYCOL (HEALTHYLAX) 3350 17 GM PACKET PO SCH (09:22)
[2022-12-02] MEDS: PANTOPRAZOLE 40 MG TABLET PO SCH (09:23)
[2022-12-02] MEDS: LOSARTAN POTASSIUM 50 MG TABLET PO SCH (09:23)
[2022-12-02] MEDS: ROFLUMILAST 500 MCG TABLET PO SCH (09:23)
[2022-12-02] MEDS: CHOLECALCIFEROL (VIT D3) 1,000 UNIT (25 MCG) TABLET PO SCH (09:23)
[2022-12-02] MEDS: FUROSEMIDE 40 MG TABLET (FP) PO SCH (09:23)
[2022-12-02] MEDS: amLODIPine BESYLATE 10 MG TABLET (FP) PO SCH (09:23)
[2022-12-02] MEDS: FOLIC ACID 1 MG TABLET (FP) PO SCH (09:23)
[2022-12-02] MEDS: VENLAFAXINE HCL 75 MG E.R. CAPSULES PO SCH (09:23)
[2022-12-02] MEDS: guaiFENesin 600 MG TABLET.ER (FP) PO SCH (09:24)
[2022-12-02] MEDS ORDERED: MINERAL OIL ENEMA 133 ML ENEMA RC ONE (11:56)
[2022-12-02] MEDS ORDERED: POLYETHYLENE GLYCOL (HEALTHYLAX) 3350 17 GM PACKET PO SCH (12:00)
[2022-12-02] MEDS: RIVASTIGMINE 9.5 MG/24 HOURS TRANSDERMAL PATCH TD SCH (14:09)
[2022-12-02 14:27] VITALS: BP 130/65; PULSE 72; TEMP 98
== END 2022-12-02 17:19 | DRG 189 ==
LOC: JER 08:03 → JERBED 10:27 → J6S 13:31
PROVIDERS: ADMIT Internal Medicine; ATTEND Internal Medicine
DX: J96.01 Acute respiratory failure with hypoxia (principal); R53.2 Functional quadriplegia; J44.1 Chronic obstructive pulmonary disease with (acute) exacerbation; E24.9 Cushing's syndrome, unspecified; I50.32 Chronic diastolic (congestive) heart failure; J98.11 Atelectasis; I69.351 Hemiplegia and hemiparesis following cerebral infarction affecting right dominant side; F03.90 Unspecified dementia, unspecified severity, without behavioral disturbance, psychotic disturbance, mood disturbance, and anxiety; E78.5 Hyperlipidemia, unspecified; I35.0 Nonrheumatic aortic (valve) stenosis; I11.0 Hypertensive heart disease with heart failure; J96.02 Acute respiratory failure with hypercapnia; F41.8 Other specified anxiety disorders; Z95.810 Presence of automatic (implantable) cardiac defibrillator
CPT/HCPCS: 0241U-QW; 36415; 71045-TC-FY; 71250-TC; 80048; 80053; 83880; 84484; 85025; 93005; 93010; 94640; 97161-GP; 99285-25

== ENCOUNTER 2023-02-06 16:16 | Inpatient (IN) | payer OTHER, MEDICARE ==
[2023-02-06 17:02] VITALS: BMI 26.5
[2023-02-06] MEDS ORDERED: ALBUTEROL SO4 2.5/IPRATROPIUM 0.5 INH SOL 3 ML VIAL.NEB. NEB ONE ×3 (17:10→17:11)
[2023-02-06 18:07] LABS: VENOUS BASE EXCESS 2.1 mmol/L (-2-2); VENOUS O2 SATURATION 29.6 % (70-80); VENOUS PH 7.352 (7.310-7.410)
[2023-02-06 18:14] LABS: HEMATOCRIT 35.7 % (32.4-45.2); HEMOGLOBIN 11.8 GM/dL (10.7-15.3); MCH 24.5 pg (25.7-33.7); MCHC 32.9 g/dl (32.0-36.0); MEAN CELL VOLUME 74.4 fl (80-96); PLATELET COUNT 220 10^3/uL (134-434); RDW 16.9 % (11.6-15.6); WHITE BLOOD COUNT 25.4 K/mm3 (4.0-10.0)
[2023-02-06 18:20] LABS: INR 1.24 (0.83-1.09); PROTHROMBIN TIME (PATIENT) 14.3 SEC (9.7-13.0)
[2023-02-06] MEDS: FUROSEMIDE 40 MG/4 ML INJECTABLE VIAL IVPUSH ONE ×2 (18:20→18:23)
[2023-02-06 18:22] LABS: EPI CELLS 14 /uL (0-25.1); HYALINE CASTS 2 /uL (0-3.1); URINE APPEARANCE CLEAR; URINE BACTERIA 1 /uL (0-1359); URINE BILIRUBIN NEGATIVE (NEGATIVE); URINE COLOR YELLOW; URINE GLUCOSE (UA) NEGATIVE (NEGATIVE); URINE KETONE TRACE (NEGATIVE); URINE LEUK ESTERASE NEGATIVE (NEGATIVE); URINE NITRITE NEGATIVE (NEGATIVE); URINE PROTEIN 1+ (NEGATIVE); URINE RBC 3 /uL (0-23.9); URINE UROBILINOGEN 0.2 mg/dL (0.2-1.0); URINE WBC 5 /uL (0-25.8)
[2023-02-06 18:23] LABS: ACTIVATED PTT 35.7 SECONDS (25.2-36.5)
[2023-02-06] MEDS ORDERED: VANCOMYCIN 1 GM in D5W (PRE-DOCKED) 1,000 MG/250 ML (RESTRICTED TO ID ONLY IVPB ONE (18:24)
[2023-02-06] MEDS ORDERED: PIPERACILLIN/TAZOB 4.5 GM 4.5 GM in DEXTROSE 5%-WATER 100 ML IVPB ONE (18:24)
[2023-02-06 18:27] LABS: POTASSIUM 3.8 mmol/L (3.5-5.1)
[2023-02-06 18:29] LABS: ALBUMIN 3.4 g/dl (3.4-5.0); CALCIUM 9.6 mg/dL (8.5-10.1)
[2023-02-06] MEDS ORDERED: SODIUM CHLORIDE 0.9% 500 ML INFUS.BAG IV ONE (18:29)
[2023-02-06] MEDS ORDERED: PIPERACILLIN/TAZOB 4.5 GM 4.5 GM/100 ML BAG IVPB ONE (18:29)
[2023-02-06] MEDS ORDERED: VANCOMYCIN/WATER FOR INJ (PEG) 1,000 MG/200 ML BAG IVPB ONE (18:29)
[2023-02-06 18:30] LABS: BLOOD UREA NITROGEN 24.9 mg/dL (7-18); MAGNESIUM 1.8 mg/dL (1.8-2.4)
[2023-02-06 18:34] LABS: BILIRUBIN,TOTAL 0.5 mg/dL (0.2-1); TOT PROT 7.6 g/dl (6.4-8.2)
[2023-02-06] MEDS ORDERED: ALBUTEROL SO4 2.5/IPRATROPIUM 0.5 INH SOL 3 ML VIAL.NEB. NEB PRN (18:36)
[2023-02-06 18:38] LABS: N-TERMINAL BNP 754.6 pg/ml (5-450)
[2023-02-06] MEDS ORDERED: PANTOPRAZOLE SODIUM 40 MG VIAL IVPUSH ONE (18:46)
[2023-02-06 19:28] LABS: ANISOCYTOSIS 1+; MACROCYTOSIS 1+
[2023-02-06] MEDS ORDERED: PANTOPRAZOLE SODIUM 40 MG/100 ML BAG IVPB ONE (19:33)
[2023-02-06] MEDS ORDERED: ENOXAPARIN NA (PORCINE) 40 MG/0.4 ML DISP.SYRIN SQ ONE (19:33)
[2023-02-06] MEDS ORDERED: D5-1/2NS+10 MEQ KCL - 10 MEQ/1,000 ML INFUS.BAG IV SCH ×2 (19:45→20:45)
[2023-02-06] MEDS: ENOXAPARIN NA (PORCINE) 40 MG/0.4 ML DISP.SYRIN SQ SCH (19:48)
[2023-02-06] MEDS: GABAPENTIN 300 MG CAPSULE PO SCH (22:42)
[2023-02-06] MEDS: ACETAMINOPHEN 1000 MG/100 ML BAG IVPB PRN (22:55)
[2023-02-07] MEDS ORDERED: D5-1/2NS+10 MEQ KCL - 10 MEQ/1,000 ML INFUS.BAG IV SCH (04:56)
[2023-02-07] MEDS: GABAPENTIN 300 MG CAPSULE PO SCH ×3 (06:10→22:41)
[2023-02-07 07:36] LABS: HEMATOCRIT 31.3 % (32.4-45.2); HEMOGLOBIN 10.3 GM/dL (10.7-15.3); MCH 24.5 pg (25.7-33.7); MCHC 32.8 g/dl (32.0-36.0); MEAN CELL VOLUME 74.7 fl (80-96); MEAN PLT VOLUME 8.5 fl (7.5-11.1); PLATELET COUNT 179 10^3/uL (134-434); RBC 4.19 M/mm3 (3.60-5.2); RDW 16.5 % (11.6-15.6); WHITE BLOOD COUNT 22.5 K/mm3 (4.0-10.0)
[2023-02-07 07:51] LABS: POTASSIUM 3.8 mmol/L (3.5-5.1)
[2023-02-07 08:02] LABS: CALCIUM 8.8 mg/dL (8.5-10.1)
[2023-02-07 08:03] LABS: BLOOD UREA NITROGEN 24.1 mg/dL (7-18); MAGNESIUM 2.1 mg/dL (1.8-2.4)
[2023-02-07 08:06] LABS: CREATININE 0.9 mg/dL (0.55-1.3); PHOSPHOROUS 3.2 mg/dL (2.5-4.9)
[2023-02-07 08:57] LABS: ANISOCYTOSIS 0; HELMET CELLS 0; HOWELL-JOLLY BODIES 0; MACROCYTOSIS 0; OVALOCYTE 0; ROULEAU 0; SICKELED CELLS 0; TARGET CELLS 0; TEAR DROP CELLS 0; TOXIC GRANULATION 0
[2023-02-07] MEDS ORDERED: FOLIC ACID 1 MG TABLET (FP) PO SCH (10:00)
[2023-02-07] MEDS ORDERED: ROFLUMILAST 500 MCG TABLET PO SCH (10:00)
[2023-02-07] MEDS ORDERED: VENLAFAXINE HCL 37.5 MG E.R. CAPSULE PO SCH (10:00)
[2023-02-07] MEDS: PANTOPRAZOLE SODIUM 40 MG VIAL IVPUSH SCH (10:30)
[2023-02-07] MEDS ORDERED: IRON SUCROSE INJECTION 300 MG in SODIUM CHLORIDE 235 ML IVPB ONE (10:30)
[2023-02-07] MEDS: ENOXAPARIN NA (PORCINE) 40 MG/0.4 ML DISP.SYRIN SQ SCH (10:31)
[2023-02-07] MEDS: RIVASTIGMINE 9.5 MG/24 HOURS TRANSDERMAL PATCH TD SCH (10:31)
[2023-02-07] MEDS: ACETAMINOPHEN 1000 MG/100 ML BAG IVPB PRN (10:38)
[2023-02-07] MEDS: PIPERACILLIN/TAZOB 3.375 GM 3.375 GM in DEXTROSE 5%-WATER - 50 ML IVPB SCH (17:34)
[2023-02-07] MEDS: D5-1/2NS+10 MEQ KCL - 10 MEQ/1,000 ML INFUS.BAG IV SCH (18:08)
[2023-02-08] MEDS: ACETAMINOPHEN 1000 MG/100 ML BAG IVPB PRN ×2 (01:14→21:12)
[2023-02-08] MEDS: PIPERACILLIN/TAZOB 3.375 GM 3.375 GM in DEXTROSE 5%-WATER - 50 ML IVPB SCH ×3 (01:20→17:29)
[2023-02-08] MEDS: GABAPENTIN 300 MG CAPSULE PO SCH (06:22)
[2023-02-08 08:26] LABS: HEMATOCRIT 29.6 % (32.4-45.2); HEMOGLOBIN 9.5 GM/dL (10.7-15.3); MCHC 32.2 g/dl (32.0-36.0); MEAN CELL VOLUME 74.5 fl (80-96); MEAN PLT VOLUME 8.7 fl (7.5-11.1); PLATELET COUNT 178 10^3/uL (134-434); RBC 3.97 M/mm3 (3.60-5.2); RDW 16.4 % (11.6-15.6); WHITE BLOOD COUNT 18.9 K/mm3 (4.0-10.0)
[2023-02-08 08:46] LABS: POTASSIUM 3.7 mmol/L (3.5-5.1)
[2023-02-08 08:48] LABS: CALCIUM 8.7 mg/dL (8.5-10.1)
[2023-02-08 08:49] LABS: BLOOD UREA NITROGEN 21.1 mg/dL (7-18)
[2023-02-08 08:52] LABS: CREATININE 0.7 mg/dL (0.55-1.3)
[2023-02-08] MEDS ORDERED: ALBUTEROL SO4 0.083% IH SOL 2.5 MG/3 ML VIAL.NEB. NEB PRN (09:55)
[2023-02-08 10:13] LABS: ANISOCYTOSIS 0; HELMET CELLS 0; HOWELL-JOLLY BODIES 0; MACROCYTOSIS 0; OVALOCYTE 0; ROULEAU 0; SICKELED CELLS 0; TARGET CELLS 0; TEAR DROP CELLS 0; TOXIC GRANULATION 0
[2023-02-08] MEDS: PANTOPRAZOLE SODIUM 40 MG VIAL IVPUSH SCH (10:19)
[2023-02-08] MEDS: ENOXAPARIN NA (PORCINE) 40 MG/0.4 ML DISP.SYRIN SQ SCH (10:19)
[2023-02-08] MEDS: RIVASTIGMINE 9.5 MG/24 HOURS TRANSDERMAL PATCH TD SCH (10:20)
[2023-02-08] MEDS: ALBUTEROL SO4 0.083% IH SOL 2.5 MG/3 ML VIAL.NEB. NEB SCH ×3 (11:30→20:30)
[2023-02-08] MEDS: ACETYLCYSTEINE 20% 200MG/ML 4 ML VIAL *FOR ORAL / INH USE ONLY NEB SCH ×3 (11:30→20:30)
[2023-02-08 12:12] LABS: ARTERIAL BLD GAS O2 SATURATION 96.8 % (95-98); ARTERIAL BLOOD GAS BASE EXCESS 1.5 mmol/L (-2-2); ARTERIAL BLOOD GAS PO2 89.9 mmHg (80-100); ARTERIAL BLOOD GAS pH 7.394 (7.350-7.450)
[2023-02-08 12:18] LABS: ALLENS TEST POSITIVE
[2023-02-08] MEDS: D5-1/2NS+10 MEQ KCL - 10 MEQ/1,000 ML INFUS.BAG IV SCH (17:29)
[2023-02-09] MEDS: PIPERACILLIN/TAZOB 3.375 GM 3.375 GM in DEXTROSE 5%-WATER - 50 ML IVPB SCH ×3 (01:50→18:02)
[2023-02-09] MEDS: ALBUTEROL SO4 0.083% IH SOL 2.5 MG/3 ML VIAL.NEB. NEB SCH ×4 (07:32→20:52)
[2023-02-09] MEDS: ACETYLCYSTEINE 20% 200MG/ML 4 ML VIAL *FOR ORAL / INH USE ONLY NEB SCH ×4 (07:32→20:51)
[2023-02-09 07:44] LABS: HEMATOCRIT 29.3 % (32.4-45.2); HEMOGLOBIN 9.4 GM/dL (10.7-15.3); MCH 24.2 pg (25.7-33.7); MCHC 32.2 g/dl (32.0-36.0); MEAN CELL VOLUME 75.3 fl (80-96); MEAN PLT VOLUME 8.4 fl (7.5-11.1); PLATELET COUNT 206 10^3/uL (134-434); RBC 3.89 M/mm3 (3.60-5.2); RDW 16.3 % (11.6-15.6); WHITE BLOOD COUNT 14.7 K/mm3 (4.0-10.0)
[2023-02-09 07:58] LABS: POTASSIUM 3.3 mmol/L (3.5-5.1)
[2023-02-09 08:01] LABS: CALCIUM 8.4 mg/dL (8.5-10.1)
[2023-02-09 08:02] LABS: BLOOD UREA NITROGEN 18.8 mg/dL (7-18)
[2023-02-09 08:06] LABS: TOT PROT 5.7 g/dl (6.4-8.2)
[2023-02-09 08:07] LABS: BILIRUBIN,TOTAL 0.4 mg/dL (0.2-1)
[2023-02-09 08:08] LABS: CREATININE 0.6 mg/dL (0.55-1.3)
[2023-02-09 08:10] LABS: ALBUMIN 2.3 g/dl (3.4-5.0)
[2023-02-09 08:47] LABS: ANISOCYTOSIS 0; HELMET CELLS 0; HOWELL-JOLLY BODIES 0; MACROCYTOSIS 0; OVALOCYTE 0; ROULEAU 0; SICKELED CELLS 0; TARGET CELLS 0; TEAR DROP CELLS 0; TOXIC GRANULATION 0
[2023-02-09] MEDS: ENOXAPARIN NA (PORCINE) 40 MG/0.4 ML DISP.SYRIN SQ SCH (09:03)
[2023-02-09] MEDS: RIVASTIGMINE 9.5 MG/24 HOURS TRANSDERMAL PATCH TD SCH (09:03)
[2023-02-09] MEDS ORDERED: POTASSIUM CHLORIDE 20 MEQ in AMINO ACIDS 4.25%/D5W 1,000 ML IV SCH (10:45)
[2023-02-09] MEDS: PANTOPRAZOLE SODIUM 40 MG VIAL IVPUSH SCH (11:02)
[2023-02-09] MEDS: KCL 10 MEQ IVPB 10 MEQ/100 ML INFUS.BAG IVPB SCH ×3 (11:39→14:56)
[2023-02-09] MEDS: POTASSIUM CHLORIDE 20 MEQ in AMINO ACIDS 4.25%/D5W 1,000 ML IV SCH (17:16)
[2023-02-09] MEDS: ACETAMINOPHEN 1000 MG/100 ML BAG IVPB PRN (20:32)
[2023-02-09] MEDS: FAT EMULSION/OLIVE/SOY/PHOSPHO 250 ML IV SCH (21:35)
[2023-02-09] MEDS ORDERED: FAT EMULSIONS 20% 250 ML PREMIX INFUS.BAG IV SCH (22:00)
[2023-02-10] MEDS: PIPERACILLIN/TAZOB 3.375 GM 3.375 GM in DEXTROSE 5%-WATER - 50 ML IVPB SCH ×3 (01:21→17:51)
[2023-02-10 07:37] LABS: HEMATOCRIT 26.9 % (32.4-45.2); HEMOGLOBIN 8.9 GM/dL (10.7-15.3); MCH 24.7 pg (25.7-33.7); MEAN CELL VOLUME 74.9 fl (80-96); MEAN PLT VOLUME 8.9 fl (7.5-11.1); PLATELET COUNT 205 10^3/uL (134-434); RBC 3.59 M/mm3 (3.60-5.2); RDW 16.1 % (11.6-15.6); WHITE BLOOD COUNT 13.9 K/mm3 (4.0-10.0)
[2023-02-10 07:51] LABS: POTASSIUM 3.6 mmol/L (3.5-5.1)
[2023-02-10 07:56] LABS: BLOOD UREA NITROGEN 16.3 mg/dL (7-18); CALCIUM 8.6 mg/dL (8.5-10.1)
[2023-02-10 07:59] LABS: CREATININE 0.5 mg/dL (0.55-1.3)
[2023-02-10] MEDS: ALBUTEROL SO4 0.083% IH SOL 2.5 MG/3 ML VIAL.NEB. NEB SCH ×4 (08:10→20:05)
[2023-02-10] MEDS: ACETYLCYSTEINE 20% 200MG/ML 4 ML VIAL *FOR ORAL / INH USE ONLY NEB SCH ×4 (08:10→20:05)
[2023-02-10] MEDS: KCL 10 MEQ IVPB 10 MEQ/100 ML INFUS.BAG IVPB SCH ×3 (08:45→14:29)
[2023-02-10] MEDS ORDERED: IRON SUCROSE INJECTION 300 MG in SODIUM CHLORIDE 235 ML IVPB ONE (09:00)
[2023-02-10 09:08] LABS: ANISOCYTOSIS 3+; MACROCYTOSIS 0
[2023-02-10] MEDS: RIVASTIGMINE 9.5 MG/24 HOURS TRANSDERMAL PATCH TD SCH (09:40)
[2023-02-10] MEDS: ENOXAPARIN NA (PORCINE) 40 MG/0.4 ML DISP.SYRIN SQ SCH (09:40)
[2023-02-10] MEDS: PANTOPRAZOLE SODIUM 40 MG VIAL IVPUSH SCH (12:02)
[2023-02-10] MEDS: ACETAMINOPHEN 1000 MG/100 ML BAG IVPB PRN ×2 (17:56→23:48)
[2023-02-10] MEDS: POTASSIUM CHLORIDE 20 MEQ in AMINO ACIDS 4.25%/D5W 1,000 ML IV SCH ×2 (19:46→19:59)
[2023-02-10] MEDS: FAT EMULSION/OLIVE/SOY/PHOSPHO 250 ML IV SCH (22:33)
[2023-02-11] MEDS: PIPERACILLIN/TAZOB 3.375 GM 3.375 GM in DEXTROSE 5%-WATER - 50 ML IVPB SCH ×3 (02:03→17:10)
[2023-02-11] MEDS: ACETYLCYSTEINE 20% 200MG/ML 4 ML VIAL *FOR ORAL / INH USE ONLY NEB SCH ×4 (08:00→20:05)
[2023-02-11] MEDS: ALBUTEROL SO4 0.083% IH SOL 2.5 MG/3 ML VIAL.NEB. NEB SCH ×4 (08:00→20:05)
[2023-02-11 08:44] LABS: HEMATOCRIT 32.4 % (32.4-45.2); HEMOGLOBIN 10.6 GM/dL (10.7-15.3); MCH 24.5 pg (25.7-33.7); MCHC 32.7 g/dl (32.0-36.0); MEAN CELL VOLUME 74.9 fl (80-96); MEAN PLT VOLUME 8.5 fl (7.5-11.1); PLATELET COUNT 230 10^3/uL (134-434); RBC 4.33 M/mm3 (3.60-5.2); RDW 15.9 % (11.6-15.6)
[2023-02-11 08:59] LABS: POTASSIUM 4.1 mmol/L (3.5-5.1)
[2023-02-11 09:02] LABS: BLOOD UREA NITROGEN 15.9 mg/dL (7-18)
[2023-02-11 09:04] LABS: CREATININE 0.6 mg/dL (0.55-1.3)
[2023-02-11 09:34] LABS: ANISOCYTOSIS 3+; MACROCYTOSIS 0
[2023-02-11] MEDS: PANTOPRAZOLE SODIUM 40 MG VIAL IVPUSH SCH (09:36)
[2023-02-11] MEDS: ENOXAPARIN NA (PORCINE) 40 MG/0.4 ML DISP.SYRIN SQ SCH (09:36)
[2023-02-11] MEDS: RIVASTIGMINE 9.5 MG/24 HOURS TRANSDERMAL PATCH TD SCH (09:37)
[2023-02-11] MEDS: POTASSIUM CHLORIDE 20 MEQ in AMINO ACIDS 4.25%/D5W 1,000 ML IV SCH (17:42)
[2023-02-11] MEDS: ACETAMINOPHEN 1000 MG/100 ML BAG IVPB PRN (17:43)
[2023-02-11] MEDS: FAT EMULSION/OLIVE/SOY/PHOSPHO 250 ML IV SCH (21:29)
[2023-02-12] MEDS: PIPERACILLIN/TAZOB 3.375 GM 3.375 GM in DEXTROSE 5%-WATER - 50 ML IVPB SCH ×3 (02:42→17:18)
[2023-02-12 06:33] LABS: HEMATOCRIT 29.5 % (32.4-45.2); HEMOGLOBIN 10.1 GM/dL (10.7-15.3); MCH 25.4 pg (25.7-33.7); MCHC 34.2 g/dl (32.0-36.0); MEAN CELL VOLUME 74.3 fl (80-96); MEAN PLT VOLUME 8.5 fl (7.5-11.1); PLATELET COUNT 250 10^3/uL (134-434); RBC 3.96 M/mm3 (3.60-5.2); RDW 15.7 % (11.6-15.6); WHITE BLOOD COUNT 15.2 K/mm3 (4.0-10.0)
[2023-02-12 06:40] LABS: POTASSIUM 3.7 mmol/L (3.5-5.1)
[2023-02-12 06:42] LABS: CALCIUM 8.8 mg/dL (8.5-10.1)
[2023-02-12 06:46] LABS: CREATININE 0.5 mg/dL (0.55-1.3)
[2023-02-12] MEDS: ACETYLCYSTEINE 20% 200MG/ML 4 ML VIAL *FOR ORAL / INH USE ONLY NEB SCH ×4 (08:00→20:15)
[2023-02-12] MEDS: ALBUTEROL SO4 0.083% IH SOL 2.5 MG/3 ML VIAL.NEB. NEB SCH ×4 (08:00→20:15)
[2023-02-12 09:31] LABS: ANISOCYTOSIS 0; HELMET CELLS 0; HOWELL-JOLLY BODIES 0; MACROCYTOSIS 0; OVALOCYTE 0; ROULEAU 0; SICKELED CELLS 0; TARGET CELLS 0; TEAR DROP CELLS 0; TOXIC GRANULATION 0
[2023-02-12] MEDS: LIDOCAINE 5% TOPICAL PATCH TP SCH (10:15)
[2023-02-12] MEDS: PANTOPRAZOLE SODIUM 40 MG VIAL IVPUSH SCH (10:15)
[2023-02-12] MEDS: ENOXAPARIN NA (PORCINE) 40 MG/0.4 ML DISP.SYRIN SQ SCH (10:15)
[2023-02-12] MEDS: RIVASTIGMINE 9.5 MG/24 HOURS TRANSDERMAL PATCH TD SCH (10:20)
[2023-02-12] MEDS: VENLAFAXINE HCL 37.5 MG E.R. CAPSULE PO SCH (11:21)
[2023-02-12] MEDS ORDERED: POTASSIUM CHLORIDE 20 MEQ in AMINO ACIDS 4.25%/D5W 1,000 ML IV SCH (11:59)
[2023-02-12] MEDS ORDERED: FUROSEMIDE 40 MG/4 ML INJECTABLE VIAL IVPUSH ONE (11:59)
[2023-02-12] MEDS: POTASSIUM CHLORIDE 20 MEQ in AMINO ACIDS 4.25%/D5W 1,000 ML IV SCH ×2 (13:50→21:46)
[2023-02-12] MEDS: LOSARTAN POTASSIUM 50 MG TABLET PO SCH (13:50)
[2023-02-12] MEDS: FAT EMULSION/OLIVE/SOY/PHOSPHO 250 ML IV SCH (21:37)
[2023-02-12] MEDS: ACETAMINOPHEN 1000 MG/100 ML BAG IVPB PRN (22:00)
[2023-02-12] MEDS: LIDOCAINE PATCH REMOVAL MC SCH (22:44)
[2023-02-13] MEDS: PIPERACILLIN/TAZOB 3.375 GM 3.375 GM in DEXTROSE 5%-WATER - 50 ML IVPB SCH ×3 (01:15→17:20)
[2023-02-13 06:24] LABS: HEMATOCRIT 29.3 % (32.4-45.2); MCH 25.2 pg (25.7-33.7); MEAN CELL VOLUME 74.1 fl (80-96); PLATELET COUNT 284 10^3/uL (134-434); RBC 3.96 M/mm3 (3.60-5.2); RDW 15.8 % (11.6-15.6); WHITE BLOOD COUNT 13.2 K/mm3 (4.0-10.0)
[2023-02-13 06:42] LABS: POTASSIUM 3.5 mmol/L (3.5-5.1)
[2023-02-13 06:45] LABS: CALCIUM 8.6 mg/dL (8.5-10.1)
[2023-02-13 06:46] LABS: BLOOD UREA NITROGEN 17.2 mg/dL (7-18)
[2023-02-13 06:50] LABS: CREATININE 0.7 mg/dL (0.55-1.3)
[2023-02-13] MEDS ORDERED: FUROSEMIDE 40 MG/4 ML INJECTABLE VIAL IVPUSH ONE (07:37)
[2023-02-13] MEDS: ALBUTEROL SO4 0.083% IH SOL 2.5 MG/3 ML VIAL.NEB. NEB SCH ×4 (07:40→21:00)
[2023-02-13] MEDS: ACETYLCYSTEINE 20% 200MG/ML 4 ML VIAL *FOR ORAL / INH USE ONLY NEB SCH ×4 (07:40→21:00)
[2023-02-13] MEDS: KCL 10 MEQ IVPB 10 MEQ/100 ML INFUS.BAG IVPB SCH ×3 (09:37→11:10)
[2023-02-13] MEDS: ENOXAPARIN NA (PORCINE) 40 MG/0.4 ML DISP.SYRIN SQ SCH (09:46)
[2023-02-13] MEDS: PANTOPRAZOLE SODIUM 40 MG VIAL IVPUSH SCH (09:46)
[2023-02-13] MEDS: LIDOCAINE 5% TOPICAL PATCH TP SCH (09:46)
[2023-02-13] MEDS: RIVASTIGMINE 9.5 MG/24 HOURS TRANSDERMAL PATCH TD SCH (09:47)
[2023-02-13] MEDS: LOSARTAN POTASSIUM 50 MG TABLET PO SCH (09:47)
[2023-02-13] MEDS: VENLAFAXINE HCL 37.5 MG E.R. CAPSULE PO SCH (09:47)
[2023-02-13 10:13] LABS: ANISOCYTOSIS 3+; MACROCYTOSIS 0
[2023-02-13] MEDS: POTASSIUM CHLORIDE 20 MEQ in AMINO ACIDS 4.25%/D5W 1,000 ML IV SCH (14:53)
[2023-02-13] MEDS: FAT EMULSION/OLIVE/SOY/PHOSPHO 250 ML IV SCH (21:01)
[2023-02-13] MEDS: LIDOCAINE PATCH REMOVAL MC SCH (21:21)
[2023-02-14] MEDS: PIPERACILLIN/TAZOB 3.375 GM 3.375 GM in DEXTROSE 5%-WATER - 50 ML IVPB SCH ×2 (01:19→09:25)
[2023-02-14] MEDS: ACETYLCYSTEINE 20% 200MG/ML 4 ML VIAL *FOR ORAL / INH USE ONLY NEB SCH ×4 (08:44→20:22)
[2023-02-14] MEDS: ALBUTEROL SO4 0.083% IH SOL 2.5 MG/3 ML VIAL.NEB. NEB SCH ×4 (08:45→20:22)
[2023-02-14 08:46] LABS: HEMATOCRIT 31.7 % (32.4-45.2); HEMOGLOBIN 10.6 GM/dL (10.7-15.3); MCH 24.8 pg (25.7-33.7); MCHC 33.4 g/dl (32.0-36.0); MEAN CELL VOLUME 74.2 fl (80-96); MEAN PLT VOLUME 8.5 fl (7.5-11.1); PLATELET COUNT 312 10^3/uL (134-434); RBC 4.28 M/mm3 (3.60-5.2); WHITE BLOOD COUNT 15.5 K/mm3 (4.0-10.0)
[2023-02-14 09:06] LABS: POTASSIUM 3.8 mmol/L (3.5-5.1)
[2023-02-14 09:07] LABS: CALCIUM 9.2 mg/dL (8.5-10.1)
[2023-02-14 09:08] LABS: BLOOD UREA NITROGEN 25.4 mg/dL (7-18)
[2023-02-14 09:11] LABS: CREATININE 0.7 mg/dL (0.55-1.3)
[2023-02-14] MEDS: LOSARTAN POTASSIUM 50 MG TABLET PO SCH (09:24)
[2023-02-14] MEDS: VENLAFAXINE HCL 37.5 MG E.R. CAPSULE PO SCH (09:24)
[2023-02-14] MEDS: LIDOCAINE 5% TOPICAL PATCH TP SCH (09:25)
[2023-02-14] MEDS: RIVASTIGMINE 9.5 MG/24 HOURS TRANSDERMAL PATCH TD SCH (09:25)
[2023-02-14] MEDS: PANTOPRAZOLE SODIUM 40 MG VIAL IVPUSH SCH (09:25)
[2023-02-14] MEDS: ENOXAPARIN NA (PORCINE) 40 MG/0.4 ML DISP.SYRIN SQ SCH (09:26)
[2023-02-14 09:49] LABS: ANISOCYTOSIS 3+; MACROCYTOSIS 0
[2023-02-14] MEDS: POTASSIUM CHLORIDE 20 MEQ in AMINO ACIDS 4.25%/D5W 1,000 ML IV SCH (15:23)
[2023-02-14] MEDS: LIDOCAINE PATCH REMOVAL MC SCH (21:09)
[2023-02-14] MEDS: FAT EMULSION/OLIVE/SOY/PHOSPHO 250 ML IV SCH (21:09)
[2023-02-15] MEDS: PIPERACILLIN/TAZOB 3.375 GM 3.375 GM in DEXTROSE 5%-WATER - 50 ML IVPB SCH ×3 (01:55→17:32)
[2023-02-15] MEDS: ALBUTEROL SO4 0.083% IH SOL 2.5 MG/3 ML VIAL.NEB. NEB SCH ×4 (06:15→20:05)
[2023-02-15] MEDS: ACETYLCYSTEINE 20% 200MG/ML 4 ML VIAL *FOR ORAL / INH USE ONLY NEB SCH ×4 (07:47→20:05)
[2023-02-15 08:24] LABS: HEMATOCRIT 30.7 % (32.4-45.2); HEMOGLOBIN 10.2 GM/dL (10.7-15.3); MCH 24.8 pg (25.7-33.7); MCHC 33.1 g/dl (32.0-36.0); MEAN CELL VOLUME 74.9 fl (80-96); MEAN PLT VOLUME 8.3 fl (7.5-11.1); PLATELET COUNT 282 10^3/uL (134-434); RDW 15.7 % (11.6-15.6); WHITE BLOOD COUNT 16.5 K/mm3 (4.0-10.0)
[2023-02-15 08:50] LABS: CALCIUM 9.2 mg/dL (8.5-10.1); POTASSIUM 4.1 mmol/L (3.5-5.1)
[2023-02-15 08:55] LABS: CREATININE 0.5 mg/dL (0.55-1.3)
[2023-02-15 09:15] LABS: ANISOCYTOSIS 0; MACROCYTOSIS 0
[2023-02-15] MEDS: ENOXAPARIN NA (PORCINE) 40 MG/0.4 ML DISP.SYRIN SQ SCH (10:17)
[2023-02-15] MEDS: PANTOPRAZOLE SODIUM 40 MG VIAL IVPUSH SCH (10:17)
[2023-02-15] MEDS: LIDOCAINE 5% TOPICAL PATCH TP SCH (10:18)
[2023-02-15] MEDS: VENLAFAXINE HCL 37.5 MG E.R. CAPSULE PO SCH (10:18)
[2023-02-15] MEDS: LOSARTAN POTASSIUM 50 MG TABLET PO SCH (10:18)
[2023-02-15] MEDS: RIVASTIGMINE 9.5 MG/24 HOURS TRANSDERMAL PATCH TD SCH (10:18)
[2023-02-15] MEDS: POTASSIUM CHLORIDE 20 MEQ in AMINO ACIDS 4.25%/D5W 1,000 ML IV SCH (15:39)
[2023-02-15] MEDS: LIDOCAINE PATCH REMOVAL MC SCH (22:03)
[2023-02-15] MEDS: FAT EMULSION/OLIVE/SOY/PHOSPHO 250 ML IV SCH (22:03)
[2023-02-16] MEDS: PIPERACILLIN/TAZOB 3.375 GM 3.375 GM in DEXTROSE 5%-WATER - 50 ML IVPB SCH ×3 (01:21→17:14)
[2023-02-16] MEDS: ALBUTEROL SO4 0.083% IH SOL 2.5 MG/3 ML VIAL.NEB. NEB SCH ×2 (07:30→11:46)
[2023-02-16] MEDS: ACETYLCYSTEINE 20% 200MG/ML 4 ML VIAL *FOR ORAL / INH USE ONLY NEB SCH ×2 (07:30→11:46)
[2023-02-16 08:13] LABS: HEMATOCRIT 30.6 % (32.4-45.2); MCH 24.7 pg (25.7-33.7); MCHC 32.7 g/dl (32.0-36.0); MEAN CELL VOLUME 75.4 fl (80-96); MEAN PLT VOLUME 8.5 fl (7.5-11.1); PLATELET COUNT 282 10^3/uL (134-434); RBC 4.07 M/mm3 (3.60-5.2); RDW 16.3 % (11.6-15.6); WHITE BLOOD COUNT 17.3 K/mm3 (4.0-10.0)
[2023-02-16 08:23] LABS: POTASSIUM 4.1 mmol/L (3.5-5.1)
[2023-02-16 08:25] LABS: BLOOD UREA NITROGEN 22.4 mg/dL (7-18); CALCIUM 9.1 mg/dL (8.5-10.1)
[2023-02-16 08:29] LABS: CREATININE 0.6 mg/dL (0.55-1.3)
[2023-02-16 09:25] LABS: ANISOCYTOSIS 3+; MACROCYTOSIS 0
[2023-02-16] MEDS: PANTOPRAZOLE SODIUM 40 MG VIAL IVPUSH SCH (10:10)
[2023-02-16] MEDS: LOSARTAN POTASSIUM 50 MG TABLET PO SCH (10:10)
[2023-02-16] MEDS: ENOXAPARIN NA (PORCINE) 40 MG/0.4 ML DISP.SYRIN SQ SCH (10:10)
[2023-02-16] MEDS: LIDOCAINE 5% TOPICAL PATCH TP SCH (10:11)
[2023-02-16] MEDS: RIVASTIGMINE 9.5 MG/24 HOURS TRANSDERMAL PATCH TD SCH (10:14)
[2023-02-16] MEDS: VENLAFAXINE HCL 37.5 MG E.R. CAPSULE PO SCH (10:14)
[2023-02-16] MEDS: POTASSIUM CHLORIDE 20 MEQ in AMINO ACIDS 4.25%/D5W 1,000 ML IV SCH (15:17)
[2023-02-16] MEDS: FAT EMULSION/OLIVE/SOY/PHOSPHO 250 ML IV SCH (21:02)
[2023-02-16] MEDS: LIDOCAINE PATCH REMOVAL MC SCH (21:03)
[2023-02-17] MEDS: PIPERACILLIN/TAZOB 3.375 GM 3.375 GM in DEXTROSE 5%-WATER - 50 ML IVPB SCH ×3 (01:26→17:28)
[2023-02-17 09:02] LABS: HEMOGLOBIN 9.9 GM/dL (10.7-15.3); MCH 24.6 pg (25.7-33.7); MCHC 32.9 g/dl (32.0-36.0); MEAN CELL VOLUME 74.9 fl (80-96); MEAN PLT VOLUME 8.2 fl (7.5-11.1); PLATELET COUNT 282 10^3/uL (134-434); RDW 16.2 % (11.6-15.6); WHITE BLOOD COUNT 15.1 K/mm3 (4.0-10.0)
[2023-02-17 09:08] LABS: POTASSIUM 4.3 mmol/L (3.5-5.1)
[2023-02-17 09:12] LABS: BLOOD UREA NITROGEN 27.3 mg/dL (7-18); CALCIUM 9.6 mg/dL (8.5-10.1)
[2023-02-17 09:15] LABS: CREATININE 0.7 mg/dL (0.55-1.3)
[2023-02-17 09:55] LABS: ANISOCYTOSIS 0; HELMET CELLS 0; HOWELL-JOLLY BODIES 0; MACROCYTOSIS 0; OVALOCYTE 0; ROULEAU 0; SICKELED CELLS 0; TARGET CELLS 0; TEAR DROP CELLS 0; TOXIC GRANULATION 0
[2023-02-17] MEDS: ENOXAPARIN NA (PORCINE) 40 MG/0.4 ML DISP.SYRIN SQ SCH (10:51)
[2023-02-17] MEDS: VENLAFAXINE HCL 37.5 MG E.R. CAPSULE PO SCH (10:51)
[2023-02-17] MEDS: LOSARTAN POTASSIUM 50 MG TABLET PO SCH (10:51)
[2023-02-17] MEDS: PANTOPRAZOLE SODIUM 40 MG VIAL IVPUSH SCH (10:51)
[2023-02-17] MEDS: RIVASTIGMINE 9.5 MG/24 HOURS TRANSDERMAL PATCH TD SCH (10:52)
[2023-02-17] MEDS: LIDOCAINE 5% TOPICAL PATCH TP SCH (10:52)
[2023-02-17] MEDS: POTASSIUM CHLORIDE 20 MEQ in AMINO ACIDS 4.25%/D5W 1,000 ML IV SCH (13:36)
[2023-02-17] MEDS: LIDOCAINE PATCH REMOVAL MC SCH (21:28)
[2023-02-17] MEDS: FAT EMULSION/OLIVE/SOY/PHOSPHO 250 ML IV SCH (23:08)
[2023-02-18] MEDS: PIPERACILLIN/TAZOB 3.375 GM 3.375 GM in DEXTROSE 5%-WATER - 50 ML IVPB SCH ×3 (02:42→18:12)
[2023-02-18 07:48] LABS: HEMATOCRIT 31.5 % (32.4-45.2); HEMOGLOBIN 10.4 GM/dL (10.7-15.3); MCH 24.8 pg (25.7-33.7); MCHC 33.1 g/dl (32.0-36.0); MEAN PLT VOLUME 8.9 fl (7.5-11.1); PLATELET COUNT 315 10^3/uL (134-434); RDW 15.9 % (11.6-15.6); WHITE BLOOD COUNT 14.2 K/mm3 (4.0-10.0)
[2023-02-18 08:07] LABS: POTASSIUM 4.3 mmol/L (3.5-5.1)
[2023-02-18 08:11] LABS: CALCIUM 9.1 mg/dL (8.5-10.1)
[2023-02-18 08:13] LABS: BLOOD UREA NITROGEN 25.8 mg/dL (7-18)
[2023-02-18 08:15] LABS: CREATININE 0.5 mg/dL (0.55-1.3)
[2023-02-18 09:04] LABS: ANISOCYTOSIS 0; HELMET CELLS 0; HOWELL-JOLLY BODIES 0; MACROCYTOSIS 0; OVALOCYTE 0; ROULEAU 0; SICKELED CELLS 0; TARGET CELLS 0; TEAR DROP CELLS 0; TOXIC GRANULATION 0
[2023-02-18] MEDS: PANTOPRAZOLE SODIUM 40 MG VIAL IVPUSH SCH (09:46)
[2023-02-18] MEDS: ENOXAPARIN NA (PORCINE) 40 MG/0.4 ML DISP.SYRIN SQ SCH (09:46)
[2023-02-18] MEDS: LIDOCAINE 5% TOPICAL PATCH TP SCH (09:47)
[2023-02-18] MEDS: LOSARTAN POTASSIUM 50 MG TABLET PO SCH (09:47)
[2023-02-18] MEDS: VENLAFAXINE HCL 37.5 MG E.R. CAPSULE PO SCH (09:57)
[2023-02-18] MEDS: RIVASTIGMINE 9.5 MG/24 HOURS TRANSDERMAL PATCH TD SCH (09:58)
[2023-02-18] MEDS: POTASSIUM CHLORIDE 20 MEQ in AMINO ACIDS 4.25%/D5W 1,000 ML IV SCH ×2 (13:30→18:13)
[2023-02-18] MEDS: LIDOCAINE PATCH REMOVAL MC SCH (22:53)
[2023-02-18] MEDS: FAT EMULSION/OLIVE/SOY/PHOSPHO 250 ML IV SCH (22:53)
[2023-02-19] MEDS: PIPERACILLIN/TAZOB 3.375 GM 3.375 GM in DEXTROSE 5%-WATER - 50 ML IVPB SCH ×3 (02:35→17:11)
[2023-02-19 06:55] LABS: BASO % 0.5 % (0-2.0); EOS % 0.6 % (0-4.5); HEMATOCRIT 29.3 % (32.4-45.2); HEMOGLOBIN 9.9 GM/dL (10.7-15.3); LYMPH % 7.6 % (8-40); MCHC 33.8 g/dl (32.0-36.0); MEAN CELL VOLUME 73.9 fl (80-96); MEAN PLT VOLUME 8.6 fl (7.5-11.1); MONO % 10.1 % (3.8-10.2); NEUT % 81.2 % (42.8-82.8); PLATELET COUNT 317 10^3/uL (134-434); RBC 3.97 M/mm3 (3.60-5.2); RDW 16.1 % (11.6-15.6); WHITE BLOOD COUNT 12.7 K/mm3 (4.0-10.0)
[2023-02-19 07:13] LABS: POTASSIUM 4.8 mmol/L (3.5-5.1)
[2023-02-19 07:15] LABS: BLOOD UREA NITROGEN 25.4 mg/dL (7-18)
[2023-02-19 07:18] LABS: CREATININE 0.5 mg/dL (0.55-1.3)
[2023-02-19] MEDS: VENLAFAXINE HCL 37.5 MG E.R. CAPSULE PO SCH (09:22)
[2023-02-19] MEDS: PANTOPRAZOLE SODIUM 40 MG VIAL IVPUSH SCH (09:22)
[2023-02-19] MEDS: ENOXAPARIN NA (PORCINE) 40 MG/0.4 ML DISP.SYRIN SQ SCH (09:22)
[2023-02-19] MEDS: LOSARTAN POTASSIUM 50 MG TABLET PO SCH (09:22)
[2023-02-19] MEDS: RIVASTIGMINE 9.5 MG/24 HOURS TRANSDERMAL PATCH TD SCH (09:23)
[2023-02-19] MEDS: LIDOCAINE 5% TOPICAL PATCH TP SCH (09:23)
[2023-02-19] MEDS: POTASSIUM CHLORIDE 20 MEQ in AMINO ACIDS 4.25%/D5W 1,000 ML IV SCH (12:30)
[2023-02-19] MEDS: FAT EMULSION/OLIVE/SOY/PHOSPHO 250 ML IV SCH (21:34)
[2023-02-19] MEDS: LIDOCAINE PATCH REMOVAL MC SCH (21:35)
[2023-02-20] MEDS: PIPERACILLIN/TAZOB 3.375 GM 3.375 GM in DEXTROSE 5%-WATER - 50 ML IVPB SCH ×3 (01:38→17:48)
[2023-02-20 06:24] LABS: BASO % 0.8 % (0-2.0); EOS % 0.7 % (0-4.5); HEMATOCRIT 30.1 % (32.4-45.2); HEMOGLOBIN 10.2 GM/dL (10.7-15.3); LYMPH % 9.5 % (8-40); MCHC 33.7 g/dl (32.0-36.0); MEAN CELL VOLUME 74.1 fl (80-96); MEAN PLT VOLUME 8.7 fl (7.5-11.1); MONO % 11.4 % (3.8-10.2); NEUT % 77.6 % (42.8-82.8); PLATELET COUNT 337 10^3/uL (134-434); RBC 4.07 M/mm3 (3.60-5.2); RDW 16.2 % (11.6-15.6)
[2023-02-20 06:47] LABS: POTASSIUM 4.4 mmol/L (3.5-5.1)
[2023-02-20 06:49] LABS: CALCIUM 9.3 mg/dL (8.5-10.1)
[2023-02-20 06:50] LABS: BLOOD UREA NITROGEN 29.1 mg/dL (7-18)
[2023-02-20 06:53] LABS: CREATININE 0.6 mg/dL (0.55-1.3)
[2023-02-20] MEDS: LOSARTAN POTASSIUM 50 MG TABLET PO SCH (10:04)
[2023-02-20] MEDS: ENOXAPARIN NA (PORCINE) 40 MG/0.4 ML DISP.SYRIN SQ SCH (10:04)
[2023-02-20] MEDS: LIDOCAINE 5% TOPICAL PATCH TP SCH (10:04)
[2023-02-20] MEDS: VENLAFAXINE HCL 37.5 MG E.R. CAPSULE PO SCH (10:04)
[2023-02-20] MEDS: PANTOPRAZOLE SODIUM 40 MG VIAL IVPUSH SCH (10:04)
[2023-02-20] MEDS: RIVASTIGMINE 9.5 MG/24 HOURS TRANSDERMAL PATCH TD SCH (10:05)
[2023-02-20] MEDS: POTASSIUM CHLORIDE 20 MEQ in AMINO ACIDS 4.25%/D5W 1,000 ML IV SCH (14:54)
[2023-02-20] MEDS: FAT EMULSION/OLIVE/SOY/PHOSPHO 250 ML IV SCH (23:17)
[2023-02-20] MEDS: LIDOCAINE PATCH REMOVAL MC SCH (23:18)
[2023-02-21] MEDS: PIPERACILLIN/TAZOB 3.375 GM 3.375 GM in DEXTROSE 5%-WATER - 50 ML IVPB SCH ×3 (01:06→17:25)
[2023-02-21 06:40] LABS: BASO % 0.4 % (0-2.0); EOS % 0.6 % (0-4.5); HEMATOCRIT 30.2 % (32.4-45.2); HEMOGLOBIN 10.1 GM/dL (10.7-15.3); LYMPH % 9.7 % (8-40); MCH 24.9 pg (25.7-33.7); MCHC 33.4 g/dl (32.0-36.0); MEAN CELL VOLUME 74.5 fl (80-96); MEAN PLT VOLUME 8.8 fl (7.5-11.1); MONO % 11.9 % (3.8-10.2); NEUT % 77.4 % (42.8-82.8); PLATELET COUNT 345 10^3/uL (134-434); RBC 4.06 M/mm3 (3.60-5.2); RDW 16.3 % (11.6-15.6); WHITE BLOOD COUNT 12.7 K/mm3 (4.0-10.0)
[2023-02-21 06:57] LABS: POTASSIUM 4.9 mmol/L (3.5-5.1)
[2023-02-21 06:58] LABS: CALCIUM 9.2 mg/dL (8.5-10.1)
[2023-02-21 06:59] LABS: BLOOD UREA NITROGEN 27.3 mg/dL (7-18)
[2023-02-21 07:02] LABS: CREATININE 0.5 mg/dL (0.55-1.3)
[2023-02-21] MEDS: ENOXAPARIN NA (PORCINE) 40 MG/0.4 ML DISP.SYRIN SQ SCH (09:16)
[2023-02-21] MEDS: LIDOCAINE 5% TOPICAL PATCH TP SCH (09:16)
[2023-02-21] MEDS: LOSARTAN POTASSIUM 50 MG TABLET PO SCH (09:17)
[2023-02-21] MEDS: PANTOPRAZOLE SODIUM 40 MG VIAL IVPUSH SCH (09:17)
[2023-02-21] MEDS: VENLAFAXINE HCL 37.5 MG E.R. CAPSULE PO SCH (09:20)
[2023-02-21] MEDS: RIVASTIGMINE 9.5 MG/24 HOURS TRANSDERMAL PATCH TD SCH (09:20)
[2023-02-21] MEDS: POTASSIUM CHLORIDE 20 MEQ in AMINO ACIDS 4.25%/D5W 1,000 ML IV SCH (17:25)
[2023-02-21] MEDS: ACETAMINOPHEN 1000 MG/100 ML BAG IVPB PRN (21:21)
[2023-02-21] MEDS: FAT EMULSION/OLIVE/SOY/PHOSPHO 250 ML IV SCH (21:32)
[2023-02-21] MEDS: LIDOCAINE PATCH REMOVAL MC SCH (21:36)
[2023-02-22] MEDS: PIPERACILLIN/TAZOB 3.375 GM 3.375 GM in DEXTROSE 5%-WATER - 50 ML IVPB SCH ×3 (02:05→17:00)
[2023-02-22 08:20] LABS: BASO % 0.6 % (0-2.0); EOS % 0.8 % (0-4.5); HEMATOCRIT 30.1 % (32.4-45.2); HEMOGLOBIN 9.9 GM/dL (10.7-15.3); LYMPH % 10.6 % (8-40); MCH 24.9 pg (25.7-33.7); MCHC 32.9 g/dl (32.0-36.0); MEAN CELL VOLUME 75.7 fl (80-96); MEAN PLT VOLUME 8.9 fl (7.5-11.1); MONO % 11.6 % (3.8-10.2); NEUT % 76.4 % (42.8-82.8); PLATELET COUNT 338 10^3/uL (134-434); RBC 3.98 M/mm3 (3.60-5.2); RDW 16.2 % (11.6-15.6); WHITE BLOOD COUNT 12.4 K/mm3 (4.0-10.0)
[2023-02-22 08:46] LABS: POTASSIUM 5.1 mmol/L (3.5-5.1)
[2023-02-22 08:48] LABS: ALBUMIN 2.4 g/dl (3.4-5.0)
[2023-02-22 08:55] LABS: BLOOD UREA NITROGEN 32.1 mg/dL (7-18); CALCIUM 9.3 mg/dL (8.5-10.1)
[2023-02-22 08:58] LABS: CREATININE 0.6 mg/dL (0.55-1.3)
[2023-02-22 09:01] LABS: BILIRUBIN,TOTAL 0.2 mg/dL (0.2-1); TOT PROT 6.6 g/dl (6.4-8.2)
[2023-02-22] MEDS: ENOXAPARIN NA (PORCINE) 40 MG/0.4 ML DISP.SYRIN SQ SCH (09:26)
[2023-02-22] MEDS: LOSARTAN POTASSIUM 50 MG TABLET PO SCH (09:27)
[2023-02-22] MEDS: LIDOCAINE 5% TOPICAL PATCH TP SCH (09:27)
[2023-02-22] MEDS: VENLAFAXINE HCL 37.5 MG E.R. CAPSULE PO SCH (09:27)
[2023-02-22] MEDS: PANTOPRAZOLE SODIUM 40 MG VIAL IVPUSH SCH (09:28)
[2023-02-22] MEDS: RIVASTIGMINE 9.5 MG/24 HOURS TRANSDERMAL PATCH TD SCH (09:28)
[2023-02-22] MEDS: SODIUM CHLORIDE 1 GM TABLET PO SCH (11:24)
[2023-02-22] MEDS: POTASSIUM CHLORIDE 20 MEQ in AMINO ACIDS 4.25%/D5W 1,000 ML IV SCH ×2 (12:30→17:00)
[2023-02-22] MEDS: LIDOCAINE PATCH REMOVAL MC SCH (22:24)
[2023-02-22] MEDS: ACETAMINOPHEN 1000 MG/100 ML BAG IVPB PRN (22:25)
[2023-02-22] MEDS: FAT EMULSION/OLIVE/SOY/PHOSPHO 250 ML IV SCH (23:11)
[2023-02-23] MEDS: PIPERACILLIN/TAZOB 3.375 GM 3.375 GM in DEXTROSE 5%-WATER - 50 ML IVPB SCH ×3 (02:53→18:21)
[2023-02-23 07:29] LABS: BASO % 0.5 % (0-2.0); EOS % 1.4 % (0-4.5); HEMATOCRIT 28.3 % (32.4-45.2); HEMOGLOBIN 9.5 GM/dL (10.7-15.3); LYMPH % 11.4 % (8-40); MCHC 33.5 g/dl (32.0-36.0); MEAN CELL VOLUME 74.7 fl (80-96); MEAN PLT VOLUME 9.1 fl (7.5-11.1); MONO % 13.1 % (3.8-10.2); NEUT % 73.6 % (42.8-82.8); PLATELET COUNT 368 10^3/uL (134-434); RBC 3.78 M/mm3 (3.60-5.2); RDW 16.6 % (11.6-15.6); WHITE BLOOD COUNT 10.1 K/mm3 (4.0-10.0)
[2023-02-23 07:49] LABS: CALCIUM 9.1 mg/dL (8.5-10.1)
[2023-02-23 07:50] LABS: BLOOD UREA NITROGEN 36.4 mg/dL (7-18); POTASSIUM 5.3 mmol/L (3.5-5.1)
[2023-02-23 07:53] LABS: CREATININE 0.7 mg/dL (0.55-1.3)
[2023-02-23] MEDS: ENOXAPARIN NA (PORCINE) 40 MG/0.4 ML DISP.SYRIN SQ SCH (09:45)
[2023-02-23] MEDS: LOSARTAN POTASSIUM 50 MG TABLET PO SCH (09:45)
[2023-02-23] MEDS: VENLAFAXINE HCL 37.5 MG E.R. CAPSULE PO SCH (09:45)
[2023-02-23] MEDS: PANTOPRAZOLE SODIUM 40 MG VIAL IVPUSH SCH (09:46)
[2023-02-23] MEDS: RIVASTIGMINE 9.5 MG/24 HOURS TRANSDERMAL PATCH TD SCH (09:46)
[2023-02-23] MEDS: LIDOCAINE 5% TOPICAL PATCH TP SCH (09:46)
[2023-02-23] MEDS: AMINO ACIDS 4.25%/D5W 1,000 ML IV SCH (15:18)
[2023-02-23] MEDS: ACETAMINOPHEN 1000 MG/100 ML BAG IVPB PRN ×2 (16:58→23:58)
[2023-02-23] MEDS: FAT EMULSION/OLIVE/SOY/PHOSPHO 250 ML IV SCH (22:46)
[2023-02-23] MEDS: LIDOCAINE PATCH REMOVAL MC SCH (22:47)
[2023-02-24] MEDS: PIPERACILLIN/TAZOB 3.375 GM 3.375 GM in DEXTROSE 5%-WATER - 50 ML IVPB SCH ×3 (01:51→17:11)
[2023-02-24 06:33] LABS: BASO % 0.7 % (0-2.0); EOS % 1.4 % (0-4.5); HEMATOCRIT 28.1 % (32.4-45.2); HEMOGLOBIN 9.3 GM/dL (10.7-15.3); MCHC 33.1 g/dl (32.0-36.0); MEAN CELL VOLUME 75.4 fl (80-96); MEAN PLT VOLUME 8.6 fl (7.5-11.1); MONO % 11.6 % (3.8-10.2); NEUT % 76.3 % (42.8-82.8); PLATELET COUNT 398 10^3/uL (134-434); RBC 3.73 M/mm3 (3.60-5.2); RDW 16.3 % (11.6-15.6); WHITE BLOOD COUNT 9.8 K/mm3 (4.0-10.0)
[2023-02-24 06:42] LABS: POTASSIUM 4.5 mmol/L (3.5-5.1)
[2023-02-24 06:43] LABS: CALCIUM 9.3 mg/dL (8.5-10.1)
[2023-02-24 06:44] LABS: BLOOD UREA NITROGEN 31.7 mg/dL (7-18)
[2023-02-24 06:47] LABS: CREATININE 0.6 mg/dL (0.55-1.3)
[2023-02-24] MEDS: ENOXAPARIN NA (PORCINE) 40 MG/0.4 ML DISP.SYRIN SQ SCH (09:45)
[2023-02-24] MEDS: LOSARTAN POTASSIUM 50 MG TABLET PO SCH (09:45)
[2023-02-24] MEDS: LIDOCAINE 5% TOPICAL PATCH TP SCH (09:45)
[2023-02-24] MEDS: VENLAFAXINE HCL 37.5 MG E.R. CAPSULE PO SCH (09:45)
[2023-02-24] MEDS: PANTOPRAZOLE SODIUM 40 MG VIAL IVPUSH SCH (09:46)
[2023-02-24] MEDS: SODIUM CHLORIDE 1 GM TABLET PO SCH (09:53)
[2023-02-24] MEDS: AMINO ACIDS 4.25%/D5W 1,000 ML IV SCH (13:41)
[2023-02-24] MEDS: RIVASTIGMINE 9.5 MG/24 HOURS TRANSDERMAL PATCH TD SCH (14:48)
[2023-02-24] MEDS: ACETAMINOPHEN 1000 MG/100 ML BAG IVPB PRN (18:18)
[2023-02-24] MEDS: FAT EMULSION/OLIVE/SOY/PHOSPHO 250 ML IV SCH (22:16)
[2023-02-24] MEDS: LIDOCAINE PATCH REMOVAL MC SCH (22:17)
[2023-02-25] MEDS: PIPERACILLIN/TAZOB 3.375 GM 3.375 GM in DEXTROSE 5%-WATER - 50 ML IVPB SCH ×2 (01:00→09:25)
[2023-02-25] MEDS: AMINO ACIDS 4.25%/D5W 1,000 ML IV SCH (09:24)
[2023-02-25] MEDS: LOSARTAN POTASSIUM 50 MG TABLET PO SCH (09:25)
[2023-02-25] MEDS: VENLAFAXINE HCL 37.5 MG E.R. CAPSULE PO SCH (09:25)
[2023-02-25] MEDS: LIDOCAINE 5% TOPICAL PATCH TP SCH (09:25)
[2023-02-25] MEDS: PANTOPRAZOLE SODIUM 40 MG VIAL IVPUSH SCH (09:25)
[2023-02-25] MEDS: ENOXAPARIN NA (PORCINE) 40 MG/0.4 ML DISP.SYRIN SQ SCH (09:25)
[2023-02-25] MEDS: RIVASTIGMINE 9.5 MG/24 HOURS TRANSDERMAL PATCH TD SCH (09:30)
[2023-02-25] MEDS: ACETAMINOPHEN 1000 MG/100 ML BAG IVPB PRN (15:37)
[2023-02-25 18:27] VITALS: BP 139/71; PULSE 83; RESP 17; TEMP 99
== END 2023-02-25 19:03 | DRG 193 ==
LOC: JER 16:16 → JERBED 18:27 → J4S 20:51
PROVIDERS: ADMIT Internal Medicine; ATTEND Internal Medicine
DX: J18.9 Pneumonia, unspecified organism (principal); J96.01 Acute respiratory failure with hypoxia; R53.2 Functional quadriplegia; J96.02 Acute respiratory failure with hypercapnia; I50.32 Chronic diastolic (congestive) heart failure; E24.9 Cushing's syndrome, unspecified; J44.1 Chronic obstructive pulmonary disease with (acute) exacerbation; E44.1 Mild protein-calorie malnutrition; J93.9 Pneumothorax, unspecified; J98.11 Atelectasis; I69.351 Hemiplegia and hemiparesis following cerebral infarction affecting right dominant side; D72.829 Elevated white blood cell count, unspecified; I11.0 Hypertensive heart disease with heart failure; E78.5 Hyperlipidemia, unspecified; E87.6 Hypokalemia; F41.8 Other specified anxiety disorders
CPT/HCPCS: 0241U-QW; 36415; 36600; 70450-TC; 71045-TC-FY; 74018-TC-FY; 80048; 80053; 81003; 82728; 82803; 83540; 83550; 83605; 83735; 83880; 84100; 84443; 84484; 85025; 85610; 85730; 86850; 86900; 86901; 87040; 87070; 87086; 87205; 87899; 93005; 93010; 94640; 94660; 97161-GP; 99291; C9803-CS; J1756; U0003; U0005